=== PATIENT | male | born 1950 | race Caucasian/White ===

== ENCOUNTER 2017-05-30 07:00 | Outpatient (RCR) | payer MEDICARE, OTHER, SELFPAY ==
--- NOTE | 2017-03-07 16:07 | HP.PTEVAL ---
Patient's Visit Information TABITHA ESTEVES is a 66 year old M referred to Physical Therapy by ABHILASH SILVA with a diagnosis of RIGHT TOTAL SHOULDER REPLACEMENT. Date of Evaluation: 03/07/17 Physical Therapist: Donavan Underwood PT, - Visit Plan Frequency: 2x /Week Duration: 3 Months Plan: SEE TSR PROTOCAL. PHASE1,2 AND 3. SLING 4 WEEEKS - Subjective Subjective: This 66 y/o male presents to physical therapy with right total shoulder replacemnt on Feb 29 2016 then d/c Mar 01 at [facility] done Dr Mullen. Patient had pain severe for about one year. Patient had PT in past ,MRI and tried cortizone injections. Thus decided to have surgery.Patient has limitations with ADL'S and self hygine.Okay to remove sling with shower.Patient is sleeping good at night in recliner. Use Ice during the day. Denies parathesia/tingling. SOCIAL: . VOCATION: [employer] - Pain Right Shoulder Pain Intensity (Out of 10): 4 Pain Intensity Range: 10 - Objective POSTURE: mild posture. INSCION : well approximate dressing intact. NEURO: inact ,denies parathesia/tingling. PROM: Right shoulder flexion supine 90 degrees, abd 80 degrees ,ER TO neutral. AROM : wrist /elbow with WFL. MMT: RUE NT ,LEFT 4/5 - Goals Goal 1:: Independant with HEP per protocal Goal Time Frame: 8-12 Weeks Goal 2:: Decrease pain by 75% or greater for function. Goal Time Frame: 8-12 Weeks Goal 3:: Patient increase AROM shoulder flexion ,abd in scpaular plane by 120 degrees or greater and ER as ronnie to improve function. Goal Time Frame: 8-12 Weeks Goal 4:: Patient increase strength to 4-/5 for RTC and deltoid 3+/5 to improve function and ADL'S and housework tasks Goal Time Frame: 8-12 Weeks Goal 5:: Patient be able to perform ADL'S ,self hygine,and housework tasks with min limiations Goal Time Frame: 8-12 Weeks - Rehabilitation Potential Physical Therapy Diagnosis: This patient underwent s/p right TSR Feb 29 2016 with decrease ROM ,strength,pain impairs ADL'S and self hygine ,housework tasks and job demands. Rehabilitation Potential: Good - Anticipated Interventions Patient/Client Instruction: Educate patient on: Condition, Plan of Care For the Purpose of:: To decrease pain, To increase ROM, To improve muscle performance and motor function, To improve ability to perform ADL's, To increase tolerance to activity/condition/position, To improve performance and independence with ADL's, To improve ability of physical actions for home/community/work/leisure, To improve health of tissue, To decrease soft tissue restriction, To increase flexibility/ROM, To assume or resume ADL's, To improve ability to perform tasks related to life management, To improve tolerance to ADL's Therapeutic Exercise to Include: Strength training, Passive ROM, Active ROM, Scapular Strength/Stabilization Comment: RIGHT SHOULDER RTC/DELTOID ELBOW WRIST For the Purpose of:: To decrease pain, To increase ROM, To improve muscle performance and motor function, To improve ability to perform ADL's, To increase tolerance to activity/condition/position, To improve performance and independence with ADL's, To improve ability of physical actions for home/community/work/leisure, To improve health of tissue, To decrease soft tissue restriction, To increase flexibility/ROM, To assume or resume ADL's, To improve ability to perform tasks related to life management Manual Therapy Techniques to Include: Mobilization, Passive ROM Comment: G-H 1-2 For the Purpose of:: To increase ROM, To improve health of tissue, To decrease soft tissue restriction, To increase flexibility/ROM TENS: Yes IF ES: Yes Cryotherapy (ice pack, ice massage): Yes Thermo therapy (hot pack): Yes For the Purpose of:: To decrease pain, To increase ROM, To improve nutrient delivery to tissue, To increase oxygenation perfusion, To improve health of tissue, To decrease soft tissue restriction Thank you for the opportunity to evaluate your patient. For Medicare and Medicare HMO plans, please review the plan of care and approve it. It will need to be FAXED BACK to us at [phone] for Medicare purposes. Please let me know if there are questions or concerns regarding this plan of care. Physician Signature: Date:
--- NOTE | 2017-04-04 07:57 | HP.PTREVAL_ITS ---
ABHILASH SILVA, It has been my pleasure to treat TABITHA ESTEVES over the last 8 visits for RIGHT TOTAL SHOULDER REPLACEMENT. Please see the progress note below for an update on the physical therapy plan of care! Subjective: Stiffnes in shoulder.. Doing more for ADL'S Objective/Function: POSTURE: rounded shoulders head foward. AROM: shoulder flexion 105 degrees with substitution. PROM: abd 145 ,flexion 130 ,ER 55 degrees supine. MMT: IR/ER 4-/5 Plan Plan: CONT POC 2XWEEK FOR 4WEEKS. CONT PER PROTOCAL DOS TSR -02/28/17. S/P TSR 5WEEKS ON 04/04/17 Goals Goal 1:: Independant with HEP per protocal Goal Time Frame: 8-12 Weeks Goal 2:: Decrease pain by 75% or greater for function. Goal Time Frame: 8-12 Weeks Goal 3:: Patient increase AROM shoulder flexion ,abd in scpaular plane by 120 degrees or greater and ER as ronnie to improve function. Goal Time Frame: 8-12 Weeks Goal 4:: Patient increase strength to 4-/5 for RTC and deltoid 3+/5 to improve function and ADL'S and housework tasks Goal Time Frame: 8-12 Weeks Goal 5:: Patient be able to perform ADL'S ,self hygine,and housework tasks with min limiations Goal Time Frame: 8-12 Weeks Anticipated Interventions Patient/Client Instruction: Educate patient on: Condition, Plan of Care For the Purpose of:: To decrease pain, To increase ROM, To improve muscle performance and motor function, To improve ability to perform ADL's, To increase tolerance to activity/condition/position, To improve performance and independence with ADL's, To improve ability of physical actions for home/ community/work/leisure, To improve health of tissue, To decrease soft tissue restriction, To increase flexibility/ROM, To assume or resume ADL's, To improve ability to perform tasks related to life management, To improve tolerance to ADL 's Therapeutic Exercise to Include: Strength training, Passive ROM, Active ROM, Scapular Strength/Stabilization Comment: RIGHT SHOULDER RTC/DELTOID ELBOW WRIST For the Purpose of:: To decrease pain, To increase ROM, To improve muscle performance and motor function, To improve ability to perform ADL's, To increase tolerance to activity/condition/position, To improve performance and independence with ADL's, To improve ability of physical actions for home/ community/work/leisure, To improve health of tissue, To decrease soft tissue restriction, To increase flexibility/ROM, To assume or resume ADL's, To improve ability to perform tasks related to life management Manual Therapy Techniques to Include: Mobilization, Passive ROM Comment: G-H 1-2 For the Purpose of:: To increase ROM, To improve health of tissue, To decrease soft tissue restriction, To increase flexibility/ROM TENS: Yes IF ES: Yes Cryotherapy (ice pack, ice massage): Yes Thermo therapy (hot pack): Yes For the Purpose of:: To decrease pain, To increase ROM, To improve nutrient delivery to tissue, To increase oxygenation perfusion, To improve health of tissue, To decrease soft tissue restriction Please do not hesitate to contact me at [phone] by phone or Fax: if you have questions or concerns regarding this new plan of care! Sincerely, Donavan Underwood PT,
--- NOTE | 2017-05-30 07:36 | HP.PTDCSUM ---
HP - PT D/C Summary It has been my pleasure to treat TABITHA ESTEVES under orders from ABHILASH SILVA, for the diagnosis of RIGHT TOTAL SHOULDER REPLACEMENT for a total of 17 visit(s). Discharge Date: Please see the following information for a summary of their discharge status. - Subjective Subjective: Doing well ..able to perform ADL'S and self hygine. housework tasks - Pain Right Shoulder Pain Intensity (Out of 10): 0 - Overall Improvement % Improvement: 80 - Objective Objective/Function: AROM : shoulder flexion 140, 145 abd,,ER 85 degrees. MMT: RTC 4/5 ,lateral deltoid 3+/5,anterior deltoid 4-/5. POSTURE: WFL - Goals Goal 1:: Independant with HEP per protocal Goal Progress: Goal Met Goal 2:: Decrease pain by 75% or greater for function. Goal Progress: Goal Met Goal 3:: Patient increase AROM shoulder flexion ,abd in scpaular plane by 120 degrees or greater and ER as ronnie to improve function. Goal Progress: Goal Met Goal 4:: Patient increase strength to 4-/5 for RTC and deltoid 3+/5 to improve function and ADL'S and housework tasks Goal 5:: Patient be able to perform ADL'S ,self hygine,and housework tasks with min limiations Goal Progress: Goal Met - Plan Plan: D/C TO HEP - D/C Information If there are questions or concerns regarding this patient's physical therapy, please feel free to call me at [phone]. Thank you for the referral of this patient. Sincerely, Donavan Underwood, PT,
== END 2017-05-30 19:00 | disposition home or self-care (01) ==
LOC: PT 07:00
PROVIDERS: Family Provider Family Medicine; PCP Family Medicine
DX: Z96.611 Presence of right artificial shoulder joint (principal)
CPT/HCPCS: 97110; 97162; G8983; G8984; G8986

== ENCOUNTER → 2018-01-05 07:35 | Outpatient (CLI) | payer MEDICARE, OTHER, SELFPAY ==
[2018-01-05 10:32] LABS: Anion Gap 7 (5-15); BUN 33 mg/dL (7-18); BUN/Creat Ratio 23.4 RATIO (10-20); CRP < 2.90 mg/L (0.0-3.0); Calcium,Total 8.8 mg/dL (8.5-10.1); Chloride 108 mmol/L (98-107); Cholesterol 260 mg/dL (200); Creatinine, Serum 1.41 mg/dL (0.70-1.30); EST Glomerular Filtration Rate 53 mL/min (>60); Est Glom Filt Rate - Afr Amer 64 mL/min (>60); Glucose 87 mg/dL (74-106); High Density Lipoprotein 49 mg/dL; Sodium Level 141 mmol/L (136-145); Triglycerides 108 mg/dL; Very Low Density Lipoprotein 22 mg/dL (5-40)
== END ==
PROVIDERS: Family Provider Family Medicine; PCP Family Medicine; Referring Provider Family Medicine; Visit Provider Family Medicine
DX: I10 Essential (primary) hypertension (principal); E78.5 Hyperlipidemia, unspecified
CPT/HCPCS: 80048; 80061; 86140

== ENCOUNTER 2018-03-01 20:53 | Emergency (ER) | payer MEDICARE, OTHER, SELFPAY ==
[2018-03-01 20:54] VITALS: BP 102/79; PULSE 72; RESP 17; TEMP 36.2; O2SAT 94; BMI 33.2
--- NOTE | 2018-03-01 21:20 | ED.DCSUM_ITS ---
- ER Visit Summary Date of Service: 03/01/18 Chief Complaint: [] Left thenar region laceration 1.5 cm History of Present Illness: The patient is a 67 M [] was working with basically a stove door that was under some type of pressure this spring snapped back and struck him left hand he suffered a laceration to the left thenar region he has no loss of function no numbness weakness or paresthesias he presents for suture evaluation and laceration management he has no other complaints Physical Examination: [] 102/72 70 His general physical exam is entirely unremarkable Is a 1.5 cm curvilinear laceration at the thenar region of left thumb left thumb thumb function is fully intact finger function and hand function normal wrist is nontender he has almost no pain no bleeding, I explained to him about the possibly foreign body he explained that not possible, he did not wish to have an x-ray as he does not believe that he has a fracture Discussed repair he agreed to glue the laceration was sterilely prepped irrigated prepped again and then closed with glue with no difficulty was instructed on wound management and he will follow with his family doctors and outpatient providers Test Results: [] Emergency Department Course and Treatment: [] Please note the patient declined tetanus update Treatment Plan: [] Disposition: [] Home stable Impression: [] 1.5 cm left hand laceration closed with glue This note was generated with [employer] dictation software. It may contain incorrect words, spelling, and punctuation that were not noted in review of the chart prior to signing ED Disposition - Plan for ED Patient: Chief Complaint: Laceration Referrals: Rosie Rodriguez MD [Primary Care Provider] -
--- NOTE | 2018-03-01 21:20 | ED.DEP ---
ED Disposition - Plan for ED Patient: Chief Complaint: Laceration Instructions: ED Laceration Hand, ED Laceration Facial Skin Glue Referrals: Rosie Rodriguez MD [Primary Care Provider] -
== END 2018-03-01 21:51 | disposition home or self-care (01) ==
LOC: ED 21:20
PROVIDERS: Emergency Provider Emergency Medicine; Family Provider Family Medicine; PCP Family Medicine
DX: S61.412A Laceration without foreign body of left hand, initial encounter (principal); W22.8XXA Striking against or struck by other objects, initial encounter; Y93.9 Activity, unspecified; Y92.9 Unspecified place or not applicable; Y99.9 Unspecified external cause status; Z79.899 Other long term (current) drug therapy
CPT/HCPCS: 12001; 99282

== ENCOUNTER → 2018-06-21 10:06 | Outpatient (CLI) | payer MEDICARE, OTHER, SELFPAY ==
--- NOTE | 2018-06-21 10:11 | RAD_ITS ---
STUDY: X-RAY CHEST REASON FOR EXAM: Male, 67 years old. Cough TECHNIQUE: PA and lateral views of the chest. COMPARISON: None. FINDINGS: Linear atelectasis versus scar formation at the left mid lung base. No confluent airspace opacity. There is no demonstrated pleural abnormality. Normal size heart. Normal mediastinum and sejal. Normal visualized pulmonary arteries. Normal visualized aortic arch and descending thoracic aorta. Normal visualized thoracic spine. Normal visualized ribs, clavicles, and shoulders. Right humeral prosthesis. There is no demonstrated abnormality of the visualized soft tissue structures of the upper abdomen. RAD/Chest PA and Lateral IMPRESSION: No evidence of acute cardiopulmonary disease. Electronically Signed: Jarrod Deluna MD at 4:58 EDT Tel , Service support ,
== END ==
PROVIDERS: Family Provider Family Medicine; PCP Family Medicine; Referring Provider Family Medicine; Visit Provider Family Medicine
DX: R05 Cough (principal)
CPT/HCPCS: 71046

== ENCOUNTER 2018-06-28 13:04 | Observation (INO) | payer MEDICARE, OTHER, SELFPAY ==
[2018-06-28] VITALS (10 sets, daily range): BP systolic 134–174; BP diastolic 83–99; PULSE 59–69; RESP 16–18; TEMP 36.3–36.6; O2SAT 96–99; BMI 32.5; BMI 32.9
[2018-06-28 13:21] LABS: Bedside Glucose 106 mg/dL (70-110)
--- NOTE | 2018-06-28 13:28 | RAD_ITS ---
STUDY: X-RAY CHEST REASON FOR EXAM: Male, 67 years old. Weakness and dizziness. Lethargy. TECHNIQUE: Single AP portable view of the chest. COMPARISON: Comparison is made with prior study June 21, 2018. FINDINGS: EKG electrodes are seen. The lungs are clear and expanded. There is no demonstrated pleural abnormality. There is borderline cardiomegaly. Normal mediastinum and sejal. Normal visualized pulmonary arteries. There is atherosclerotic tortuosity of the aortic arch and descending thoracic aorta. There are degenerative changes of the visualized thoracic spine. Status post right shoulder replacement. There is no demonstrated abnormality of the visualized soft tissue structures of the upper abdomen. RAD/Chest 1 View IMPRESSION: No acute abnormality is seen. Electronically Signed: Binh Galvan, at 14:25 EDT , Service support ,
--- NOTE | 2018-06-28 13:28 | EKG12_ITS ---
Test Reason : COUGH Blood Pressure : / mmHG Vent. Rate : 057 BPM Atrial Rate : 057 BPM P-R Int : 230 ms QRS Dur : 078 ms QT Int : 424 ms P-R-T Axes : -26 012 022 degrees QTc Int : 412 ms Sinus bradycardia with 1st degree A-V block Otherwise normal ECG Confirmed by REINA MENDOZA, RAMYA ([id number]), rewrite editor ANGY APONTE ([id number]) on 07/02/2018 10:46:28 AM Referred By: Pramod Mayes Confirmed By:RAMYA HUANG MD
--- NOTE | 2018-06-28 13:28 | CT_ITS ---
STUDY: CT BRAIN WITHOUT CONTRAST REASON FOR EXAM: Male, 67 years old. Slurred speech. Confusion. RADIATION DOSAGE (If Supplied By Facility): CTDIvol = ( 60.81 ) mGy, DLP = ( 1067.08 ) mGycm TECHNIQUE: Transaxial CT imaging of the brain was performed without administration of intravenous contrast material. Individualized dose optimization techniques were used for this CT. COMPARISON: No relevant priors. FINDINGS: Normal soft tissue structures. Normal calvarium. There is asymmetry of the ventricles consistent with an anatomic variant. Normal white matter tracts of the cerebral hemispheres. Normal basal ganglia and thalami. Normal brainstem. Normal cerebellum. There is no intracranial hemorrhage. There are no findings of an acute ischemic infarction. Atherosclerotic calcification of the cavernous portions of the internal carotid arteries as well as the vertebral arteries bilaterally. Mucosal thickening of the maxillary sinuses bilaterally slightly worse on the left side. Partial opacification of the ethmoid sinuses. Mucosal thickening of the sphenoid sinus. CT/Brain/Head without Contrast IMPRESSION: Chronic involutional changes of the brain. Sinusitis. Electronically Signed: Binh Galvan, at 14:09 EDT , Service support ,
[2018-06-28 13:58] LABS: Absolute Lymphocyte Count 1.28 X10^3/ul (0.83-4.51); Absolute Neutrophil Count 2.8 X10^3/uL (2.0-7.7); Basophil# 0.01 X10^3/uL; Basophil% 0.2 % (0-1); Eosinophil# 0.19 X10^3/uL; Eosinophils% 3.9 % (0-5); Hematocrit 36.2 % (40-54); Hemoglobin 12.5 g/dl (13.0-16.5); Lymphocyte # 1.28 X10^3/ul (4.0); Lymphocyte % 26.6 % (19-41); Mean Corp Hgb Conc 34.5 g/gl (32-36); Mean Corpuscular Hgb 30.3 pg (27.0-32.0); Mean Corpuscular Volume 87.7 fL (80-94); Mean Platelet Vol. 9.5 fl (6.2-12.0); Monocyte# 0.53 X10^3/uL; Neutrophil % 58.1 % (47-70); Platelet Count 228 K/mm3 (150-450); RBC Distribution Width CV 12.4 % (11.6-14.6); RBC Distribution Width SD 40.2 fl (35.1-43.9); Red Blood Count 4.13 M/mm3 (4.6-6.2); White Blood Count 4.8 K/mm3 (4.4-11.0)
[2018-06-28 14:00] LABS: POSITIVE COUNT NO; POSITIVE DIFFERENTIAL NO; POSITIVE MORPHOLOGY NO; Prothrombin Time (Protime)PT. 13.1 SECONDS (11.7-14.9)
[2018-06-28 14:01] LABS: Partial Thromboplast Time 26.9 Seconds (24.1-36.2)
[2018-06-28 14:08] LABS: Anion Gap 6 (5-15); BUN 34 mg/dL (7-18); Calcium,Total 8.5 mg/dL (8.5-10.1); Chloride 105 mmol/L (98-107); Creatinine, Serum 1.36 mg/dL (0.70-1.30); EST Glomerular Filtration Rate 55 mL/min (>60); Est Glom Filt Rate - Afr Amer 67 mL/min (>60); Glucose 103 mg/dL (74-106); Potassium 3.8 mmol/L (3.5-5.1); Sodium Level 138 mmol/L (136-145)
--- NOTE | 2018-06-28 14:44 | NURSING ---
DR HORACIO VELOZ
--- NOTE | 2018-06-28 14:45 | NURSING ---
DR LEONARD IN ROOM
--- NOTE | 2018-06-28 14:47 | ED.DCSUM_ITS ---
- ER Visit Summary Date of Service: 06/28/18 Chief Complaint: Disoriented, slurred speech History of Present Illness: The patient is a 67 M who comes in feeling disoriented. His thought his speech was slurred today his speech is a little bit slower than normal. He states he felt often tired when he woke up today. His speech was slow to respond. He felt dizzy but not lightheaded or vertiginous. He denies chest pain or headache. The states that his speech is now a little bit better but is still a little bit slow. He has no history of strokes in the past. He does have a history of hypertension. They thought that he may have taken a double dose of his antihypertensives but they are not sure. Physical Examination: Vital signs reviewed. HEENT exam unremarkable. Heart is regular rate and rhythm without murmurs. Lungs are clear to auscultation. Abdomen is soft and nontender. Extremities reveal no edema. Skin exam normal. Neurologic exam shows that his speech is slower but deliberate with no slurring. He has no facial droop. NIH is 0 Test Results: Laboratory studies show a hemoglobin of 12.5. Creatinine 1.36. Troponin normal. EKG normal. CAT scan of the head reveals chronic changes with sinusitis. Chest x-ray unremarkable Emergency Department Course and Treatment: The patient had no return of symptoms. When I reevaluated him his speech is better. My concern is that he has a TIA. He does have a slightly high ABCD 2 score based on his age and hypertension and symptoms. I feel he should be admitted to the hospital for further evaluation. I spoke with the hospitalist for admission Treatment Plan: [] Disposition: Admit Impression: TIA This note was generated with [employer] dictation software. It may contain incorrect words, spelling, and punctuation that were not noted in review of the chart prior to signing ED Disposition - Plan for ED Patient: Referrals: Rosie Rodriguez MD [Primary Care Provider] -
--- NOTE | 2018-06-28 15:00 | PCM.HP.STD ---
Problem List (1) Dysarthria Status: Acute History of Present Illness Date of Admission: 06/28/18 Chief Complaint: slurred speech The patient is a 67 year old M who was recently come down from 2-week illness. Was doing okay but was just feeling of his mouth is dry and was noted to have slurred speech. Patient is also noted to be deliberate in his speech as well. Otherwise patient feels well. Family is concerned brought patient to the emergency room. Patient underwent a workup in the emergency room that was unremarkable. The hospitalist service was asked to bring patient for further evaluation and rule out a stroke. Patient is never had a stroke before. [] Past Medical History Medical History: Medical History (Last Updated 06/28/18 @ 15:02 by Zohaib Billingsley DO) Depression F32.9 HTN (hypertension) I10 Allergies No Known Allergies Allergy (Verified 06/28/18 13:18) Home Medications: Ambulatory Orders Medication Instructions Recorded Hydrochlorothiazide [Hctz] 25 mg PO QHS 03/01/18 Lamotrigine [Lamictal] 200 mg PO DAILY 03/01/18 Losartan Potassium [Cozaar] 100 mg PO DAILY 03/01/18 Metoprolol Succinate [Toprol Xl] 100 mg PO DAILY 03/01/18 Quetiapine Fumarate [Seroquel] 100 mg PO QHS 03/01/18 Tamsulosin HCl [Flomax] 0.4 mg PO DAILY 03/01/18 Zolpidem Tartrate 10 mg PO DAILY 03/01/18 Psychiatric History: Depression Lives: Spouse/ Significant Other Smoking Status: Never smoker Tobacco Use: Non-smoker Alcohol: Rare Drugs: None - *Family History Sibling Family History: Family History (Last Updated 06/28/18 @ 15:02 by Zohaib Billingsley DO) Brother CVA (cerebral vascular accident) Review of Systems Constitutional: Denies: Anorexia, Chills, Fever, Night Sweats Eyes: Denies: Blurred vision, Double vision HEENT: Reports: Sore Throat, - - dry mouth. Denies: Head Aches, Sinus Congestion, Sinus Drainage Cardiovascular: Denies: Chest Pain, Palpitations Respiratory: Denies: Cough, Shortness of breath at rest, Sputum production Gastrointestinal: Denies: Abdominal Pain, Nausea, Vomiting Genitourinary: Denies: Dysuria Musculoskeletal: Denies: Joint Pain, Joint Tenderness Skin: Denies: Rash, Wounds Neurological: Denies: Numbness, Tingling, Focal weakness Psychiatric: Reports: Depression. Denies: Anxiety Endocrine: Denies: Change in Body Habitus, Heat/ Cold Intolerance Hematologic/ Lymphatic: Denies: Easy Bruising, Easy Bleeding, Hx of blood clot Comment: A 10 point review of systems were negative except as mentioned in the history of present illness and the other review of systems. VTE Information - Inpt Only VTE Present on Admission: No VTE Mechan Device Prophylaxis: None VTE Pharm Prophylaxis ordered?: Yes Patient Problems: Active and Suspected Problems Dysarthria (Acute) - Physical Exam General: Alert, Cooperative, No apparent distress, Well developed, Well nourished HEENT: Atraumatic, PERRLA, EOMI, Normocephalic Oral: No Gingival or Mucosal Lesions/ Ulcerations, Dry Mucosa Neck: No Nodes, Thyroid Normal Size and Texture Lungs: Clear to auscultation, Normal air movement Cardiovascular: Regular rate, Regular Rhythm, Normal S1, Normal S2, No murmurs Abdomen: Bowel Sounds Present, Soft, Non Tender, Non-Distended, No Hepato-splenomegaly Extremities: No edema, No Calf Tenderness Skin: No rashes, No breakdown Musculoskeletal: No Tenderness to Palpation of Joints or Extremities, No Muscle Wasting Neurological: Cranial nerves II-XII grossly intact, Motor Exam 5/5 strength throughout Psych/Mental Status: Normal Affect, Appropriate Vital Signs Temp Pulse Resp BP Pulse Ox 36.6 C 63 16 174/97 H 99 06/28/18 13:08 06/28/18 14:18 06/28/18 14:18 06/28/18 14:18 06/28/18 14:18 Oxygen Delivery Method Room Air Weight: 97.069 kg Body Mass Index (BMI) 32.5 Finger Stick Blood Glucose 106 Laboratory Tests Past 24 Hrs 06/28/18 06/28/18 06/28/18 13:13 13:13 13:13 WBC 4.8 RBC 4.13 L Hgb 12.5 L Hct 36.2 L MCV 87.7 MCH 30.3 MCHC 34.5 RDW 12.4 RDW Differential 40.2 Plt Count 228 MPV 9.5 Immature Gran % (Auto) 0.200 Neut % (Auto) 58.1 Lymph % (Auto) 26.6 [place] % (Auto) 11.0 H Eos % (Auto) 3.9 Baso % (Auto) 0.2 Absolute Neuts (auto) 2.8 Absolute Lymphs (auto) 1.28 Total Counted Not Reportable PT 13.1 INR 1.0 APTT 26.9 Sodium 138 Potassium 3.8 Chloride 105 Carbon Dioxide 27.0 Anion Gap 6 BUN 34 H Creatinine 1.36 H Estim Creat Clear Calc 49.60 Est GFR (MDRD) Af Amer 67 Est GFR (MDRD) Non-Af 55 L BUN/Creatinine Ratio 25.0 H Glucose 103 Calcium 8.5 Troponin I < 0.015 POC Glucose 06/28/18 13:11 POC Glucose 106 Clinical Impression(s) from Imaging Studies Brain CT 06/28/18 13:28 IMPRESSION: Chronic involutional changes of the brain. Sinusitis. Electronically Signed: Binh Galvan, at 14:09 EDT , Service support , Chest X-Ray 06/28/18 13:28 IMPRESSION: No acute abnormality is seen. Electronically Signed: Binh Galvan, at 14:25 EDT , Service support , EKG was normal sinus rhythm with no acute changes. Assessment/Plan All Active Problems Dysarthria (Acute) 1. Dysarthria Etiology is unclear but concern for stroke given family history and his history of hypertension Patient is on psychiatric medications but he states he takes those at night and not during the day Patient will undergo stroke workup, with an MRI of the brain, MRA of the head and neck, echocardiogram. PT and OT evaluate and treat. If evidence of stroke on MRI, recommend consultation to neurology. Holding off because I do not see any clear evidence of a stroke at this point in time clinically. Patient does have a dry mouth which patient does endorse I do not feel that is necessary that culprit of his symptoms but certainly not helping matters. Will hold his HCTZ. Given some of the noted delivered speech by the emergency room physician, would hold off on his zolpidem 2. Hypertension Accelerated at this time Continue with his losartan, metoprolol Hold HCTZ given his a clinically dry mouth 3. Depression Continue with his Seroquel as well as Lamictal Patient denies history of bipolar disorder 4. DVT prophylaxis with Lovenox Case discussed with the patient's at bedside. Code Visit OBSV E&M: 33737 Initial observation care L3
--- NOTE | 2018-06-28 15:06 | HP.PCM_ITS ---
Problem List (1) Dysarthria Status: Acute History of Present Illness Date of Admission: 06/28/18 Chief Complaint: slurred speech The patient is a 67 year old M who was recently come down from 2-week illness. Was doing okay but was just feeling of his mouth is dry and was noted to have slurred speech. Patient is also noted to be deliberate in his speech as well. Otherwise patient feels well. Family is concerned brought patient to the emergency room. Patient underwent a workup in the emergency room that was unremarkable. The hospitalist service was asked to bring patient for further evaluation and rule out a stroke. Patient is never had a stroke before. [] Past Medical History Medical History: Medical History (Last Updated 06/28/18 @ 15:02 by Zohaib Billingsley DO) Depression F32.9 HTN (hypertension) I10 Allergies No Known Allergies Allergy (Verified 06/28/18 13:18) Home Medications: Ambulatory Orders Medication Instructions Recorded Hydrochlorothiazide [Hctz] 25 mg PO QHS 03/01/18 Lamotrigine [Lamictal] 200 mg PO DAILY 03/01/18 Losartan Potassium [Cozaar] 100 mg PO DAILY 03/01/18 Metoprolol Succinate [Toprol Xl] 100 mg PO DAILY 03/01/18 Quetiapine Fumarate [Seroquel] 100 mg PO QHS 03/01/18 Tamsulosin HCl [Flomax] 0.4 mg PO DAILY 03/01/18 Zolpidem Tartrate 10 mg PO DAILY 03/01/18 Psychiatric History: Depression Lives: Spouse/ Significant Other Smoking Status: Never smoker Tobacco Use: Non-smoker Alcohol: Rare Drugs: None - *Family History Sibling Family History: Family History (Last Updated 06/28/18 @ 15:02 by Zohaib Billingsley DO) Brother CVA (cerebral vascular accident) Review of Systems Constitutional: Denies: Anorexia, Chills, Fever, Night Sweats Eyes: Denies: Blurred vision, Double vision HEENT: Reports: Sore Throat, - - dry mouth. Denies: Head Aches, Sinus Congestion, Sinus Drainage Cardiovascular: Denies: Chest Pain, Palpitations Respiratory: Denies: Cough, Shortness of breath at rest, Sputum production Gastrointestinal: Denies: Abdominal Pain, Nausea, Vomiting Genitourinary: Denies: Dysuria Musculoskeletal: Denies: Joint Pain, Joint Tenderness Skin: Denies: Rash, Wounds Neurological: Denies: Numbness, Tingling, Focal weakness Psychiatric: Reports: Depression. Denies: Anxiety Endocrine: Denies: Change in Body Habitus, Heat/ Cold Intolerance Hematologic/ Lymphatic: Denies: Easy Bruising, Easy Bleeding, Hx of blood clot Comment: A 10 point review of systems were negative except as mentioned in the history of present illness and the other review of systems. VTE Information - Inpt Only VTE Present on Admission: No VTE Mechan Device Prophylaxis: None VTE Pharm Prophylaxis ordered?: Yes Patient Problems: Active and Suspected Problems Dysarthria (Acute) - Physical Exam General: Alert, Cooperative, No apparent distress, Well developed, Well nourished HEENT: Atraumatic, PERRLA, EOMI, Normocephalic Oral: No Gingival or Mucosal Lesions/ Ulcerations, Dry Mucosa Neck: No Nodes, Thyroid Normal Size and Texture Lungs: Clear to auscultation, Normal air movement Cardiovascular: Regular rate, Regular Rhythm, Normal S1, Normal S2, No murmurs Abdomen: Bowel Sounds Present, Soft, Non Tender, Non-Distended, No Hepato- splenomegaly Extremities: No edema, No Calf Tenderness Skin: No rashes, No breakdown Musculoskeletal: No Tenderness to Palpation of Joints or Extremities, No Muscle Wasting Neurological: Cranial nerves II-XII grossly intact, Motor Exam 5/5 strength throughout Psych/Mental Status: Normal Affect, Appropriate Vital Signs Temp Pulse Resp BP Pulse Ox 36.6 C 63 16 174/97 H 99 06/28/18 13:08 06/28/18 14:18 06/28/18 14:18 06/28/18 14:18 06/28/18 14:18 Oxygen Delivery Method Room Air Weight: 97.069 kg Body Mass Index (BMI) 32.5 Finger Stick Blood Glucose 106 Laboratory Tests Past 24 Hrs 06/28/18 06/28/18 06/28/18 13:13 13:13 13:13 WBC 4.8 RBC 4.13 L Hgb 12.5 L Hct 36.2 L MCV 87.7 MCH 30.3 MCHC 34.5 RDW 12.4 RDW Differential 40.2 Plt Count 228 MPV 9.5 Immature Gran % (Auto) 0.200 Neut % (Auto) 58.1 Lymph % (Auto) 26.6 [place] % (Auto) 11.0 H Eos % (Auto) 3.9 Baso % (Auto) 0.2 Absolute Neuts (auto) 2.8 Absolute Lymphs (auto) 1.28 Total Counted Not Reportable PT 13.1 INR 1.0 APTT 26.9 Sodium 138 Potassium 3.8 Chloride 105 Carbon Dioxide 27.0 Anion Gap 6 BUN 34 H Creatinine 1.36 H Estim Creat Clear Calc 49.60 Est GFR (MDRD) Af Amer 67 Est GFR (MDRD) Non-Af 55 L BUN/Creatinine Ratio 25.0 H Glucose 103 Calcium 8.5 Troponin I < 0.015 POC Glucose 06/28/18 13:11 POC Glucose 106 Clinical Impression(s) from Imaging Studies Brain CT 06/28/18 13:28 IMPRESSION: Chronic involutional changes of the brain. Sinusitis. Electronically Signed: Binh Galvan, at 14:09 EDT , Service support , Chest X-Ray 06/28/18 13:28 IMPRESSION: No acute abnormality is seen. Electronically Signed: Binh Galvan, at 14:25 EDT , Service support , EKG was normal sinus rhythm with no acute changes. Assessment/Plan All Active Problems Dysarthria (Acute) 1. Dysarthria * Etiology is unclear but concern for stroke given family history and his history of hypertension * Patient is on psychiatric medications but he states he takes those at night and not during the day * Patient will undergo stroke workup, with an MRI of the brain, MRA of the head and neck, echocardiogram. PT and OT evaluate and treat. * If evidence of stroke on MRI, recommend consultation to neurology. Holding off because I do not see any clear evidence of a stroke at this point in time clinically. * Patient does have a dry mouth which patient does endorse I do not feel that is necessary that culprit of his symptoms but certainly not helping matters. Will hold his HCTZ. Given some of the noted delivered speech by the emergency room physician, would hold off on his zolpidem 2. Hypertension * Accelerated at this time * Continue with his losartan, metoprolol * Hold HCTZ given his a clinically dry mouth 3. Depression * Continue with his Seroquel as well as Lamictal * Patient denies history of bipolar disorder 4. DVT prophylaxis with Lovenox Case discussed with the patient's at bedside. Code Visit OBSV E&M: 66424 Initial observation care L3
--- NOTE | 2018-06-28 15:45 | ECHOCS_ITS ---
Reason For Study: TIA/CVA Procedure This was a 2D Doppler, Color Flow transthoracic echocardiogram. Exam performed portable in patient room. Left Ventricle Normal LV size. Mild concentric left ventricular hypertrophy. Left ventricular systolic function is normal. The estimated ejection fraction is 65 %. Stage 1 diastolic dysfunction. No regional wall motion abnormalities noted. Right Ventricle Normal RV size. Normal systolic function. Atria Normal left atrium. Normal right atrium. Bubble contrast study negative for right to left interatrial shunt. Mitral Valve Normal mitral valve. Tricuspid Valve Normal tricuspid valve. Aortic Valve Trisinus/trileaflet aortic valve. Mild focal aortic valve calcification. Peak aortic valve gradient 20 mmHg. Mean aortic valve gradient 10 mmHg. Calculated aortic valve area (continuity equation) is 1.4 cm2. Pulmonic Valve Normal pulmonic valve. Great Vessels Normal aortic root. The pulmonary artery is normal size. Normal inferior vena cava. Pericardium/Pleural No pericardial effusion. Medication Diluted definity 3ml given slow IV push to enhance endocardial definition. Performed a rapid injection of agitated mix of 9 cc saline and 1cc air to assess for atrial septal defect. MMode/2D Measurements & Calculations LVIDd: 4.5 cm IVSd: 1.2 cm LVOT diam: 2.0 cm LVIDs: 3.1 cm LVPWd: 1.3 cm RVDd: 2.4 cm FS: 31.8 % LVOT area: 3.2 cm2 Ao root diam: 3.9 cm LAV(MOD-sp2): 43.3 ml Aortic Valve Planimetry: 1.6 cm2 ACS: 1.5 cm LA dimension: 4.0 cm Time Measurements MV dec time: 0.25 sec Doppler Measurements & Calculations MV E max jesse: 73.5 cm/sec Lat Peak E' Jesse: 12.2 cm/sec Med Peak E' Jesse: 8.5 cm/sec MV A max jesse: 95.6 cm/sec E/E' lat: 6.0 E/E' med: 8.6 MV E/A: 0.77 MV V2 max: 95.1 cm/sec MV P1/2t max jesse: 80.9 cm/sec Ao V2 max: 224.5 cm/sec MV max P.6 mmHg MV P1/2t: 100.6 msec Ao max P.2 mmHg MV V2 mean: 52.6 cm/sec Ao V2 mean: 155.4 cm/sec MV mean P.3 mmHg MV dec slope: 235.5 cm/sec2 Ao mean P.8 mmHg MV V2 VTI: 28.7 cm MVA(P1/2t): 2.2 cm2 Ao V2 VTI: 45.2 cm MVA(VTI): 2.6 cm2 ILEANA(I,D): 1.6 cm2 ILEANA(V,D): 1.4 cm2 LV V1 max: 94.3 cm/sec SV(LVOT): 73.2 ml PA V2 max: 67.2 cm/sec LV V1 max P.6 mmHg LV V1 mean P.2 mmHg LV V1 mean: 68.4 cm/sec LV V1 VTI: 22.6 cm Interpretation Summary Normal LV size. Left ventricular systolic function is normal. The estimated ejection fraction is 65 %. Stage 1 diastolic dysfunction. Calculated aortic valve area (continuity equation) is 1.4 cm2. Contrast injection was performed. Ordering Physician: Zohaib Billingsley Referring Physician: Rosie Rodriguez M.D. Performed By: Db Bledsoe RCS
--- NOTE | 2018-06-28 15:45 | MRI_ITS ---
STUDY: MRA NECK WITH AND WITHOUT CONTRAST REASON FOR EXAM: Male, 67 years old. Weakness and fatigue TECHNIQUE: 3-D kges-km-gwxjob (TOF) imaging was performed in an 1.5 T MRI scanner. 20 IV Dotarem was administered for the contrast enhanced images. COMPARISON: None. FINDINGS: RIGHT CAROTID ARTERIES: Normal right common carotid artery (CCA). Normal right common carotid bulb. Normal origin of the right internal carotid (ICA) artery without a hemodynamically significant stenosis. Normal visualized cervical portion of the right internal carotid artery. Normal origin of the right external carotid artery (ECA). LEFT CAROTID ARTERIES: Normal left common carotid artery (CCA). Normal left common carotid bulb. Normal origin of the left internal carotid (ICA) artery without a hemodynamically significant stenosis. Normal visualized cervical portion of the left internal carotid artery. Normal origin of the left external carotid artery (ECA). VERTEBRAL ARTERIES: Normal antegrade flow within the bilateral vertebral artery without a hemodynamically significant stenosis. MRI/MRA Neck WITH and W/O Contrast IMPRESSION: Normal bilateral cervical carotid and vertebral arteries. Electronically Signed: Rudy Murphy MD at 22:03 EDT Tel , Service support ,
--- NOTE | 2018-06-28 15:45 | MRI_ITS ---
STUDY: MRA OF THE HEAD WITHOUT CONTRAST REASON FOR EXAM: Male, 67 years old. Weakness and fatigue TECHNIQUE: 3-D ykvp-or-tjgvqd (TOF) imaging was performed with MIPs. The study was performed unenhanced. COMPARISON: MRI same day FINDINGS: Normal bilateral petrous carotid arteries. Normal right cavernous carotid artery with a normal supraclinoid bifurcation. Normal left cavernous carotid artery with a normal supraclinoid bifurcation. Normal right A1 segments of the anterior cerebral artery. Normal left A1 segments of the anterior cerebral artery. Normal intact anterior communicating artery (ACOM). Normal bilateral A2 segments of the anterior cerebral arteries. Normal right M1 and M2 segments of the middle cerebral arteries, with a normal M1 bifurcation. Normal left M1 and M2 segments of the middle cerebral arteries, with a normal M1 bifurcation. Normal right posterior communicating artery (PCOM). Normal left posterior communicating artery (PCOM). Normal bilateral vertebral arteries. Normal basilar artery with a normal basilar bifurcation. The visualized bilateral superior cerebellar (SCA) arteries are normal. Normal bilateral P1, P2 and visualized P3 segments of the posterior cerebral arteries. There is no demonstrated aneurysm of the [place]. There is no major vessel occlusion or hemodynamically significant stenosis. There is no demonstrated abnormality of the visualized brain. MRI/MRA Head ONLY without Contrast IMPRESSION: Normal MRA of the head Electronically Signed: Rudy Murphy MD at 22:00 EDT Tel , Service support ,
--- NOTE | 2018-06-28 15:45 | MRI_ITS ---
STUDY: MRI BRAIN WITH AND WITHOUT CONTRAST REASON FOR EXAM: Male, 67 years old. Weakness and fatigue TECHNIQUE: Standardized multiplanar fat and water weighted pulse sequences were obtained. 20 IV Dotarem was administered for the contrast portion of the examination. COMPARISON: 06/28/2018 FINDINGS: There is asymmetry of the ventricles consistent with an anatomic variant. There are a limited number of small white matter hyperintensities, distributed throughout the deep white matter tracts of the cerebral hemispheres, consistent with mild chronic white matter ischemic changes. Normal bilateral basal ganglia. Normal thalami. There is no extra-axial fluid accumulation. Normal flow voids within the major intracranial circulation suggesting patency by spin echo criteria. Normal venous enhancement. There is no enhancing intra-axial or extra-axial abnormality. Normal sella turcica, pituitary gland, infundibular stalk, optic chiasm and hypothalamus. Normal tectal plate and pineal gland. Normal midbrain, jessica and medulla. Normal cerebellum. Normal basal cisterns. Normal bilateral temporal bones. Normal bilateral internal auditory canals. No demonstrated orbital abnormality, within the constraints of a routine brain study. Bilateral maxillary and left ethmoid sinus disease. Normal calvarium and skull base. Normal visualized soft tissue structures. Normal visualized upper cervical spine. MRI/Brain W/WO Contrast IMPRESSION: No evidence of acute infarct or hemorrhage. Mild microangiopathic white matter disease. Electronically Signed: Rudy Murphy MD at 21:25 EDT Tel , Service support ,
[2018-06-28] MEDS: Aspirin 325 MG Tablet PO (17:16)
[2018-06-28] MEDS: 0.9% Normal Saline 1,000 ML 150 ML IV (17:26)
[2018-06-28] MEDS: Tamsulosin HCl 0.4 MG Capsule PO (21:16)
[2018-06-28] MEDS: lamoTRIgine 100 MG Tablet 200 MG PO (21:16)
[2018-06-28] MEDS: QUEtiapine 100 MG Tablet PO (21:16)
[2018-06-28] MEDS: Metoprolol(XL)Succ 100 MG Tablet PO (21:17)
[2018-06-29] VITALS (8 sets, daily range): BP systolic 107–143; BP diastolic 74–80; PULSE 61–72; RESP 16–18; TEMP 36.6–37.1; O2SAT 93–96; BMI 32.9
[2018-06-29 06:39] LABS: Cholesterol 192 mg/dL (200); High Density Lipoprotein 41 mg/dL; Triglycerides 154 mg/dL; Very Low Density Lipoprotein 31 mg/dL (5-40)
[2018-06-29] MEDS: Aspirin 81 MG TAB.CHEW PO (08:02)
[2018-06-29 08:16] LABS: Hematocrit 37.1 % (40-54); Hemoglobin 12.8 g/dl (13.0-16.5); Mean Corp Hgb Conc 34.5 g/gl (32-36); Mean Corpuscular Hgb 30.2 pg (27.0-32.0); Mean Corpuscular Volume 87.5 fL (80-94); Mean Platelet Vol. 9.5 fl (6.2-12.0); Platelet Count 250 K/mm3 (150-450); RBC Distribution Width CV 12.5 % (11.6-14.6); RBC Distribution Width SD 40.1 fl (35.1-43.9); Red Blood Count 4.24 M/mm3 (4.6-6.2); White Blood Count 5.3 K/mm3 (4.4-11.0)
[2018-06-29 08:24] LABS: Scan Indicated on CBC? Y/N NO
[2018-06-29 08:27] LABS: Anion Gap 5 (5-15); BUN 24 mg/dL (7-18); BUN/Creat Ratio 18.5 RATIO (10-20); Calcium,Total 8.7 mg/dL (8.5-10.1); Chloride 110 mmol/L (98-107); EST Glomerular Filtration Rate 58 mL/min (>60); Est Glom Filt Rate - Afr Amer 70 mL/min (>60); Estimated Creatinine Clearance 51.88 ml/min; Glucose 86 mg/dL (74-106); Potassium 3.9 mmol/L (3.5-5.1); Sodium Level 141 mmol/L (136-145)
[2018-06-29] MEDS: Losartan Potassium 100 MG Tablet PO (10:36)
[2018-06-29] MEDS: Enoxaparin 40 MG/0.4 ML Syringe SC (10:37)
[2018-06-29 12:01] LABS: Hemoglobin A1c 5.7 % (4.2-6.3)
--- NOTE | 2018-06-29 13:20 | DCINST_ITS ---
- Discharge Diagnoses Current Active Problems: Current Active and Chronic Problems (Last Updated 06/28/18 @ 15:02 by Zohaib Billingsley DO) Dysarthria (Acute) Reason(s) for Visit for Discharge Instructions: Slurred speech You will use the following diet at home:: Cardiac Your food should be the consistency of: Regular Your liquids should be the consistency of: Regular/Thin Discharge Activity: Return to Normal Activity Additional Instructions: Do not take any over the counter unless cleared by your physician. Continue to keep yourself hydrated. Follow-up with Dr. Tipton within 1-2 weeks. Maintain a low fat, low salt diet. Continue on daily baby aspirin. Continue to remain active. Allergies/Adverse Reactions: Allergies No Known Allergies Allergy (Verified 06/28/18 13:18) Medications to take at Discharge Hydrochlorothiazide [Hctz] 25 mg PO DAILY 03/01/18 Lamotrigine [Lamictal] 200 mg PO QHS 03/01/18 Losartan Potassium [Cozaar] 100 mg PO DAILY 03/01/18 Metoprolol Succinate [Toprol Xl] 100 mg PO QHS 03/01/18 Quetiapine Fumarate [Seroquel] 100 mg PO QHS 03/01/18 Tamsulosin HCl [Flomax] 0.4 mg PO QHS 03/01/18 Aspirin [Aspirin, Baby] 81 mg PO DAILY@0800 #30 tab.chew 06/29/18 The following prescriptions were given: Aspirin [Aspirin, Baby] 81 mg PO DAILY@0800 #30 tab.chew Primary Care Physician: Rosie Rodriguez MD [Primary Care Provider] - Please follow up with your Primary Care Physician in: within 1-2 weeks Test Results: Test results from this visit will be discussed in further detail at your follow- up appointment, if applicable. Proposed Discharge Date: 06/29/18
--- NOTE | 2018-06-29 13:22 | DS.PCM_ITS ---
Discharge Date and Diagnosis Date of Admission: 06/28/18 Date of Discharge: 06/29/18 - Primary Discharge Diagnosis Active and Suspected Problems (Last Updated 06/28/18 @ 15:02 by Zohaib Billingsley DO) Dysarthria (Acute) Medication side-effect Hospital Course and Treatment Imaging Results: Clinical Impression(s) from Imaging Studies Brain CT 06/28/18 13:28 IMPRESSION: Chronic involutional changes of the brain. Sinusitis. Electronically Signed: Binh Galvan, at 14:09 EDT , Service support , Chest X-Ray 06/28/18 13:28 IMPRESSION: No acute abnormality is seen. Electronically Signed: Binh Galvan, at 14:25 EDT , Service support , Brain MRI 06/28/18 15:45 IMPRESSION: No evidence of acute infarct or hemorrhage. Mild microangiopathic white matter disease. Electronically Signed: Rudy Murphy MD at 21:25 EDT Tel , Service support , Head MRA 06/28/18 15:45 IMPRESSION: Normal MRA of the head Electronically Signed: Rudy Murphy MD at 22:00 EDT Tel , Service support , Neck MRA 06/28/18 15:45 IMPRESSION: Normal bilateral cervical carotid and vertebral arteries. Electronically Signed: Rudy Murphy MD at 22:03 EDT Tel , Service support , None Operations: None Procedures: 2-D Echocardiogram Summary of Care Provided: The patient is a 67 year old M past medical history of hypertension, depression who comes in after recent 2-week illness, and start of some pfck-gfk-tjvkhpn medications with slight redness in his speech. Was admitted to the telemetry floor. Vitals remained stable. MRI of the brain as well as MRA of the head and neck was negative for any acute stroke. His 2D echo was unremarkable. HbA1c was 5.7. Patient's slurred speech was felt to be related to medication side effect especially the Sudafed with the combination of the cough syrup with codeine. Patient was asked to follow-up with a primary care doctor within 2 weeks. Advised to avoid taking newr-yig-zllkdje sedatives. Subjective: On the day of discharge, patient was seen and examined. He no longer has slurred speech. He has been ambulating around the unit with no events. No acute events on telemetry. - Physical Exam General: Alert, Oriented x3, Cooperative, No apparent distress HEENT: Atraumatic, PERRLA, EOMI, Normocephalic Oral: Moist Mucosa Neck: Supple Lungs: Clear to auscultation, Normal air movement Cardiovascular: Regular rate, Regular Rhythm, Normal S1, Normal S2, No murmurs Abdomen: Bowel Sounds Present, Soft, Non Tender, Non-Distended, No Hepato- splenomegaly Extremities: No edema Skin: No rashes, No breakdown Musculoskeletal: No Tenderness to Palpation of Joints or Extremities Lymphatic: No Cervical, Supraclavicular, or Inguinal Adenopathy Neurological: Cranial nerves II-XII grossly intact, Neuro grossly intact Psych/Mental Status: Normal Affect, Appropriate Vital Signs Temp Pulse Resp BP Pulse Ox 98.7 F 64 17 143/80 H 95 06/29/18 11:17 06/29/18 11:25 06/29/18 11:17 06/29/18 11:17 06/29/18 11:17 Oxygen Delivery Method Room Air Weight: 98.2 kg Body Mass Index (BMI) 32.9 Finger Stick Blood Glucose 106 Intake and Output for Last 24 Hours 06/27/18 06/28/18 06/29/18 23:59 23:59 23:59 Intake Total 676 / 676 2306 / 2306 Balance 676 / 676 2306 / 2306 Laboratory Tests Past 24 Hrs 06/28/18 06/28/18 06/28/18 13:13 13:13 13:13 WBC 4.8 RBC 4.13 L Hgb 12.5 L Hct 36.2 L MCV 87.7 MCH 30.3 MCHC 34.5 RDW 12.4 RDW Differential 40.2 Plt Count 228 MPV 9.5 Immature Gran % (Auto) 0.200 Neut % (Auto) 58.1 Lymph % (Auto) 26.6 [place] % (Auto) 11.0 H Eos % (Auto) 3.9 Baso % (Auto) 0.2 Absolute Neuts (auto) 2.8 Absolute Lymphs (auto) 1.28 Total Counted Not Reportable PT 13.1 INR 1.0 APTT 26.9 Sodium 138 Potassium 3.8 Chloride 105 Carbon Dioxide 27.0 Anion Gap 6 BUN 34 H Creatinine 1.36 H Estim Creat Clear Calc 49.60 Est GFR (MDRD) Af Amer 67 Est GFR (MDRD) Non-Af 55 L BUN/Creatinine Ratio 25.0 H Glucose 103 Hemoglobin A1c Calcium 8.5 Troponin I < 0.015 Triglycerides Cholesterol LDL Cholesterol VLDL Cholesterol HDL Cholesterol 06/29/18 06/29/18 06/29/18 05:42 05:42 05:42 WBC 5.3 RBC 4.24 L Hgb 12.8 L Hct 37.1 L MCV 87.5 MCH 30.2 MCHC 34.5 RDW 12.5 RDW Differential 40.1 Plt Count 250 MPV 9.5 Immature Gran % (Auto) Neut % (Auto) Lymph % (Auto) [place] % (Auto) Eos % (Auto) Baso % (Auto) Absolute Neuts (auto) Absolute Lymphs (auto) Total Counted PT INR APTT Sodium 141 Potassium 3.9 Chloride 110 H Carbon Dioxide 26.0 Anion Gap 5 BUN 24 H Creatinine 1.30 Estim Creat Clear Calc 51.88 Est GFR (MDRD) Af Amer 70 Est GFR (MDRD) Non-Af 58 L BUN/Creatinine Ratio 18.5 Glucose 86 Hemoglobin A1c Calcium 8.7 Troponin I Triglycerides 154 Cholesterol 192 LDL Cholesterol 120 VLDL Cholesterol 31 HDL Cholesterol 41 06/29/18 05:42 WBC RBC Hgb Hct MCV MCH MCHC RDW RDW Differential Plt Count MPV Immature Gran % (Auto) Neut % (Auto) Lymph % (Auto) [place]cd[place] % (Auto) Eos % (Auto) Baso % (Auto) Absolute Neuts (auto) Absolute Lymphs (auto) Total Counted PT INR APTT Sodium Potassium Chloride Carbon Dioxide Anion Gap BUN Creatinine Estim Creat Clear Calc Est GFR (MDRD) Af Amer Est GFR (MDRD) Non-Af BUN/Creatinine Ratio Glucose Hemoglobin A1c 5.7 Calcium Troponin I Triglycerides Cholesterol LDL Cholesterol VLDL Cholesterol HDL Cholesterol Discharge Diet: Low fat/ Low Cholesterol, 2000 mg Sodium Diet Discharge Activity: Return to Normal Activity Home Medications: Medications to take at Discharge Hydrochlorothiazide [Hctz] 25 mg PO DAILY 03/01/18 Lamotrigine [Lamictal] 200 mg PO QHS 03/01/18 Losartan Potassium [Cozaar] 100 mg PO DAILY 03/01/18 Metoprolol Succinate [Toprol Xl] 100 mg PO QHS 03/01/18 Quetiapine Fumarate [Seroquel] 100 mg PO QHS 03/01/18 Tamsulosin HCl [Flomax] 0.4 mg PO QHS 03/01/18 Aspirin [Aspirin, Baby] 81 mg PO DAILY@0800 #30 tab.chew 06/29/18 Following Prescrptions Were Given to Patient: Aspirin [Aspirin, Baby] 81 mg PO DAILY@0800 #30 tab.chew Primary Care Physician: Rosie Rodriguez MD [Primary Care Provider] - Please follow up with your Primary Care Physician in: within 1-2 weeks Medical Necessity - Tobacco Use Smoking Status: Never smoker Tobacco Use: Non-smoker Meaningful Use Info Meaningful Use Diagnoses (Choose all that apply): None applicable Code Visit OBSV E&M: 04846 Observation care discharge
--- NOTE | 2018-06-29 13:27 | CHAPLAIN ---
Type of Pastoral Visit _x__ Initial Visit ___ Follow-up Visit ___ On-call Visit ___ General Patient Visit ___ Spiritual Assessment ___ Family Conference ___ Bereavement ___ Rapid Response ___ Code Blue ___ Other (describe below) Pastoral Care Referral From _x__ Patient ___ Family ___ Nurse ___ Physician ___ Forming Operator ___ Executive Director Of Marketing ___ Other (describe below) Sacrament/Intervention _x__ Active listening ___ Anointing ___ Restoration ___ Bereavement ___ Communion _x__ Vonda exploration ___ _x__ Life review _x__ Prayer ___ Reconciliation ___ Sacrament of Sick ___ Supportive presence ___ Wedding ___ Other (describe below) Pastoral Comments
== END 2018-06-29 13:14 | disposition home or self-care (01) ==
LOC: ED 14:12 → PCU 15:08
PROVIDERS: Emergency Provider Emergency Medicine; Family Provider Family Medicine; PCP Family Medicine; Visit Provider Internal Medicine
DX: R47.1 Dysarthria and anarthria (principal); I10 Essential (primary) hypertension; F32.9 Major depressive disorder, single episode, unspecified; Z79.899 Other long term (current) drug therapy; R42 Dizziness and giddiness; R29.700 NIHSS score 0
CPT/HCPCS: 36415; 70450; 70544; 70549; 70553; 71045; 80048; 80061; 82962; 83036; 84484; 85025; 85027; 85610; 85730; 92523; 92610; 93005; 93306; 96360; 96361; 96372; 99218; 99285; A9575; J7030; Q9957; A4216; C8929; G0378

== ENCOUNTER → 2018-09-11 | Outpatient (CLI) | payer MEDICARE, OTHER, SELFPAY ==
[2018-06-29 00:32] VITALS: BMI 32.9
[2018-09-11 10:44] LABS: PSA,Total - Annual Screen 0.63 ng/mL (0.00-4.00)
== END | disposition home or self-care (01) ==
PROVIDERS: Family Provider Family Medicine; PCP Family Medicine; Referring Provider Nurse Practitioner Adult Health; Visit Provider Nurse Practitioner Adult Health
DX: Z12.5 Encounter for screening for malignant neoplasm of prostate (principal)
CPT/HCPCS: 36415; 84153; G0103

== ENCOUNTER → 2019-02-06 09:53 | Outpatient (CLI) | payer MEDICARE, OTHER, SELFPAY ==
[2018-06-29 00:32] VITALS: BMI 32.9
[2019-02-06 12:30] LABS: Anion Gap 7 (5-15); BUN 26 mg/dL (7-18); BUN/Creat Ratio 17.2 RATIO (10-20); Calcium,Total 8.9 mg/dL (8.5-10.1); Chloride 105 mmol/L (98-107); Cholesterol 248 mg/dL (200); Creatinine, Serum 1.51 mg/dL (0.70-1.30); EST Glomerular Filtration Rate 49 mL/min (>60); Est Glom Filt Rate - Afr Amer 59 mL/min (>60); Glucose 85 mg/dL (74-106); High Density Lipoprotein 52 mg/dL; Potassium 4.2 mmol/L (3.5-5.1); Sodium Level 141 mmol/L (136-145); Triglycerides 116 mg/dL; Very Low Density Lipoprotein 23 mg/dL (5-40)
== END ==
PROVIDERS: Family Provider Family Medicine; PCP Family Medicine; Referring Provider Family Medicine; Visit Provider Family Medicine
DX: I10 Essential (primary) hypertension (principal)
CPT/HCPCS: 36415; 80048; 80061

== ENCOUNTER → 2019-08-07 10:52 | Outpatient (CLI) | payer MEDICARE, OTHER, SELFPAY ==
[2018-06-29 00:32] VITALS: BMI 32.9
[2019-08-07 13:20] LABS: Anion Gap 6 (5-15); BUN 32 mg/dL (7-18); BUN/Creat Ratio 21.6 RATIO (10-20); Calcium,Total 9.1 mg/dL (8.5-10.1); Chloride 106 mmol/L (98-107); Creatinine, Serum 1.48 mg/dL (0.70-1.30); EST Glomerular Filtration Rate 50 mL/min (>60); Est Glom Filt Rate - Afr Amer 60 mL/min (>60); Glucose 85 mg/dL (74-106); Potassium 3.9 mmol/L (3.5-5.1); Sodium Level 140 mmol/L (136-145)
== END ==
PROVIDERS: PCP Family Medicine; Visit Provider Family Medicine
DX: I10 Essential (primary) hypertension (principal)
CPT/HCPCS: 36415; 80048

== ENCOUNTER → 2019-08-09 06:20 | Outpatient (CLI) | payer MEDICARE, OTHER, SELFPAY ==
[2018-06-29 00:32] VITALS: BMI 32.9
--- NOTE | 2019-08-09 12:52 | STRESSREP_ITS ---
Stress Test Report Exercise myocardial perfusion stress test. Stress protocol: Resting EKG demonstrates normal sinus rhythm with a rate of 67 bpm normal inter vals are noted resting blood pressures 140/92 mmHg. The patient exercised according to regular Eulalio protocol for a total duration of 9 minutes and 45 seconds. The maximum heart rate attained was 139 bpm which was 93% of maximum predicted heart rate the maximum workload was 11.3 metabolic equivalents. At rest there were no ST or T wave changes noted suggest ischemia at peak exercise upsloping ST changes and were noted with no meet the criteria for ischemia. The resting blood pressure was 140/92 mmHg with a peak blood pressure 180/82 mmHg. No clinical angina was noted. Myocardial perfusion protocol. 14.3 mCi of technetium 99m sestamibi was injected at rest. The patient exercised according to regular Eulalio protocol for 9 minutes and 45 seconds at peak exercise 45.0 mCi of technetium 99m sestamibi was injected stress images were obtained stress and rest images were reconstructed in comparing the short axis vertical and horizontal long axis. Gated images were also obtained Perfusion SPECT analysis: Review of the images demonstrate normal uptake of tracer noted in all areas of the myocardium. The resting images similarly demonstrate normal uptake of tracer noted in all areas of the myocardium. No reversibility is noted to suggest ischemia no previous infarct is noted. Gated SPECT analysis: The gated ejection fraction is 63%. Conclusion: Normal exercise myocardial perfusion stress test at a high workload. Preserved ejection fraction. Excellent functional capacity.
== END ==
PROVIDERS: PCP Family Medicine; Referring Provider Family Medicine; Visit Provider Family Medicine
DX: R07.9 Chest pain, unspecified (principal)
CPT/HCPCS: 78452; 93017; A9500; A4216

== ENCOUNTER 2020-03-23 08:30 | Outpatient (RCR) | payer MEDICARE, OTHER, SELFPAY ==
[2018-06-29 00:32] VITALS: BMI 32.9
--- NOTE | 2020-03-23 09:10 | BH.SGPN.GN ---
Behaviors/Verbalizations/Mental Status: [] Eye contact is good. Motor activity is appropriate. Appearance is neat. Speech is Appropriate. Mood is anxious. Affect is congruent. Thoughts are linear and logical. No evidence of psychosis. Reviewed daily check in sheet and no reports of suicidal ideations or intent. Client Response/Progress/Benefit: [] Pt participated when prompted. Shared that today is his first day in IOP. Entered IOP to work on depression and anxiety which is impacting his life. 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 Struggling with change and loss of identity. Shared that he was able to relate to other peers struggles. Group welcomed him to the group and provided some feedback on first day and week. No progress noted as this was pt's first group. Benefited from support. Will continue in IOP to maintain safety, increase healthy coping, and decrease intrusive thoughts. Narrative Note: []
--- NOTE | 2020-03-23 10:18 | BH.SGPN.GN ---
Behaviors/Verbalizations/Mental Status: []Client alert and oriented, neatly dressed and groomed. Eye contact good. Motor activity appropriate. Speech within normal limits. Affect constricted, mood depressed. Thoughts linear, logical, no signs of hallucinations or delusions. Client Response/Progress/Benefit: []Client engaged throughout session AEB active listening and taking notes. Connected with discussion on crisis and how coping with external crises by using unhealthy coping skills could result in a personal crisis. Client often nodded and shared that crisis is ?something we don?t expect.? Group reflected on the importance of having awareness of personal warning signs in order to prevent reaching crisis point. Group identified potential warning signs for crisis and client completed the personal warning signs worksheet. Client identified personal crisis warning signs to include: racing thoughts, difficulty concentrating, and loss of functioning. Client benefited by increasing awareness of what leads to crisis and personal warning signs. Client?s first day of IOP tx. Will continue IOP tx to prevent decompensation, increase healthy coping skills, and maintain safety. Narrative Note: []
--- NOTE | 2020-03-23 13:59 | BH.MDN_ITS ---
Multi-Disciplinary Note - Note 45-min Individual Time Started:: 12:50 Date: 03/23/20 Purpose of session/treatment goals addressed:: Met with patients to discuss any thoughts or concerns on pt's first day of IOP. Also met to begin to work on treatment plan. Eye Contact:: Fair Motor Activity:: Appropriate Appearance:: Neat Speech:: Appropriate Mood:: Anxious Affect:: Congruent Thoughts:: Linear, Logical, No evidence of hallucinations/delusions noted Staff Interventions:: Provided education on OCD subtypes including Christianity OCD. Provided educational handouts for pt and family. Provided some inital affirmations to combat thoughts and encouraged mindfullness and sitting with uncertainty. Client Response:: Pt presented as ambivalant regarding group counseling this AM. He is uncertain what type of treatment will be helpful for his obessive thoughts. He has been participating in individual counseling for several weeks with symptoms worsening and attempts to find a specialist in the area have been difficult due to limited clinicians and the pandemic. Obsessions have impacted daily functioning and even led to suicidal thoughts making him appropriate for IOP. Admits that he does not do well with doubt or uncertainy in any situation. 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 Intrusive thoughts i have thoughts that I have that my mind keeps telling me are true but I don't think they are. Limited knowledge of intrustive thoughts, mandaen OCD, or scrupulosity. Attentive during some brief education on mandaen OCD and its similiarity to other forms of OCD. Risks/Concerns:: No risk noted. Pt completed [place] screening earlier in the day. Denied any active SI. Progress Toward Goals/Plan:: Some progress noted in regards to increased awareness and insight into mandaen OCD. Open to affirmations to help with thoughts and other education. Ambivalant about group counseling and if it will be effective. Unsure about IOP and if all together it can help. Plan is to continue with IOP. Agreeable to more frequent indv sessions due ton intrusive thoughts. Will reach out to pt's current outpatient therapist for more information. Time Stopped:: 12:30
--- NOTE | 2020-03-24 09:10 | BH.SGPN.GN ---
Behaviors/Verbalizations/Mental Status: [] Eye contact is good. Motor activity is appropriate. Appearance is casual. Speech is Appropriate. Mood is depressed. Affect is flat. Thoughts are linear and logical. No evidence of psychosis. Reviewed daily check in sheet pt denies any suicidal thoughts. Client Response/Progress/Benefit: [] Pt participated at times during the group discussion. Shared that his emotion is depressed and overwhelmed. Discussed that his first day in IOP was yesterday and he found some benefit in hearing that other people are struggling with similar issues as him. 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 He is unsure what his purpose will be and how to fill his day. He has been keeping busy with small tasks. Progress noted as pt reports that he learned some skills and affirmations yesterday which have been beneficial. Will continue in IOP to maintain safety, decrease intrusive thoughts, and to improve functioning. Narrative Note: []
--- NOTE | 2020-03-24 10:10 | BH.SGPN.GN ---
Behaviors/Verbalizations/Mental Status: []Client alert and oriented, casually dressed and groomed. Eye contact good. Motor activity appropriate. Speech within normal limits. Affect constricted, mood depressed and anxious. Thoughts linear, logical, no signs of hallucinations or delusions. Client Response/Progress/Benefit: []Client was an engaged participant AEB client providing input throughout discussion and listening attentively to others. Client connected with the topic of obstacles and solutions and worked with group to identify common obstacles that keep people stuck. Client shared current reality as feeling insecure, unfocused, depressed, and beating himself up. Client's realistic, desired reality is to have hope for the future and get back to setting goals. Client identified barriers keeping client from his desired reality which included: isolation, not using coping skills, and negative self-talk. Benefited from group as client was able to identify current and desired mental health state and increase awareness of how barriers can impact progress. Client to continue IOP tx to prevent decompensation, combat negative thinking, and improve self-worth. Narrative Note: []
--- NOTE | 2020-03-24 13:38 | BH.MDN_ITS ---
Multi-Disciplinary Note - Note 45-min Individual Time Started:: 11:15 Date: 03/24/20 Purpose of session/treatment goals addressed:: Reviewed handouts from yesterday. Began to work on psychosocial and developing treatment plan for IOP Eye Contact:: Good Motor Activity:: Appropriate Appearance:: Casual Speech:: Appropriate Mood:: Anxious Affect:: Congruent Thoughts:: Linear, Logical, No evidence of hallucinations/delusions noted Staff Interventions:: Provided education. Processed instrusive thoughts. Provided some reading materials regarding intrusive thoughts. Developed list of referrals for treatment in [place]. Client Response:: Pt identified with some of the educational handouts and discussion yesterday. He specifically has begun to use the affirmation thoughts are thoughts and not facts which he finds helpful. Overwhelmed and depressed regarding his future What am I going to do?. Has been trying to find tasks throughout the day to help distract himself. Yesterday visited family, exercised, and bought a cake with his . Continues to have intrusive thoughts regarding wheter he has sinned or is a good synagogue which are occuring frequently. His malaika is improtant and if he feels like he is not a good synagogue there is nothing left to live for. Intrusvie thoughts often lead to depression and suicidal thoughts. Pt spoke with his family yesterday and they beleive that spending the winter in [place] would be helpful as the weather would be more condusive to keeping busy outside. He thinks this will help with his lack of purpose and thoughts. He beleives they will be leaving on 03/30/19 and wanted to continue in [facility] viritually however this is not possible due to liscensure issues with therapists. Risks/Concerns:: No risks or concerned noted. Denies active suicidal thoughts, plan, or intent. Progress Toward Goals/Plan:: Progress noted. More hopeful and confident regarding improving his mental health. Reports benefits from groups and IOP. Responding well to education. Increased awareness and insight. Developing affirmations to challenge thoughts. It appears pt will be discharging from [facility] and moving to [place] on 03/30/20. He plans on discussing this more with his family, however I developed a list of referrals for treatment in [place]. Pt is to continue with [facility] for the remainder of the week. Time Stopped:: 12:00
--- NOTE | 2020-03-25 09:05 | BH.SGPN.GN ---
Behaviors/Verbalizations/Mental Status: []Client alert and oriented, neatly dressed and groomed. Eye contact good. Motor activity appropriate. Speech within normal limits. Affect constricted, mood anxious and dysthymic. Thoughts linear, logical, no signs of hallucinations or delusions. Reviewed client?s symptom tracker, no risk for suicidal ideation, plan, or intent as of 03/25/20 Client Response/Progress/Benefit: []Client responded well to session, receptive to feedback from peers. Client reports feeling highly anxious this morning as client has to decide if he wants to move to [place] next week or stay in [place] and continue mental health tx. Client receptive to feedback on ways to improve the decision making process. Client shared positives since last session which included exercising, spending time with family, and reflecting on skills learned in [facility]. Client reports he has been telling himself thoughts are thoughts not facts. Appeared to benefit from group support and ideas. Will keep IOP staff informed about status on moving. Client will discharge from [facility] if he moves. Narrative Note: []
--- NOTE | 2020-03-25 10:15 | BH.SGPN.GN ---
Behaviors/Verbalizations/Mental Status: [] Eye contact is good. Motor activity is appropriate. Appearance is casual. Speech is Appropriate. Mood is anxious. Affect is congruent. Thoughts are linear and logical. No evidence of psychosis. Client Response/Progress/Benefit: [] Pt was an active participant in group discussion and activity. Attentive during psychoeducation and discussion on famous people who have overcome set-backs and failures. Participated with peers in coming up with descriptions of failure which included; messing up, not accomplishing a goal, making the wrong choice, and giving up. Group discussed the impact of fear of failure stating that it can lead to; inaction, increased anxiety, self-fulfilling prophecy, and it can keep them from reaching goals or even trying. Pt benefited from group as evidenced by increased insight and awareness of the impact of fear of failure on mood and actions. Will continue in IOP to maintain safety, minimize intrusive thoughts, and increase healthy coping skills. Narrative Note: []
--- NOTE | 2020-03-25 10:15 | BH.NA ---
Physical Data - Vital Signs Pulse Rate: 57 Blood Pressure: 180/95 - Height/Weight Height: 1.73 m Weight:: 96.162 kg Weight in Pounds: 212.0 lbs Current Medication Compliance - Medication Compliance Do you take your medication as prescribed?: No - not always compliant with BP medications Nutritional History - Appetite Nutritional Instructions:: If client shows signs of a swallowing problem, weight change of 10 pounds or more in the last month, or is on a diabetic diet, the physician will review and request a dietitian consult, as appropriate. All unintentional weight loss will be referred to the physician for decision on need for dietitian consult. Describe your appetite:: Fair Additional nutritional information:: states has lost 5lbs in the last month due to lack of appetite. Functional Assessment - Sleep Pattern Describe any problems with sleeping: Client states last night he slept approximately 7 hours. Client states the two previous nights were much less. - Activities Motor Activity:: Functional Sensory/Communication Assess - Vision Problems Do you have any vision problems?: Glasses - Communication Problems Do you have difficulty understanding what people are saying?: No Medical Problems/History - Cardiac Conditions Cardiovascular: Hypertension, Hyperlipidemia - Cancer History Type of Cancer:: Skin (non-melanoma) - Pain Assessment Do you have acute or chronic pain?: No - Family History Family History: Family History (Last Updated 06/28/18 @ 15:[address] Zohaib Billingsley, ) Brother CVA (cerebral vascular accident) - Additional History Additional comments:: basal cell carcinoma on face Surgical History - Surgical History Have you had any surgeries? If so, list type and date:: Yes - right shoulder 2017 Substance Abuse - Substance Abuse Please describe substance abuse in the last 30 days:: Client denies alcohol, tobacco or drug use. Client states he rarely drinks caffiene. Mental Status Summary - Mental Status Significant Findings/Observations on Appearance and Mood:: Client is alert and oriented x 4. Client is casually groomed. Client is wearing a mask due to COVID19 pandemic. Client is cooperative. Client makes fair eye contact. Client's voice has normal rate and volume. Client appears mildly depressed. Client has normal processing. Client denies delusions/hallucinations. Client denies SI. Suicide Assessment - Suicidal Ideation Are you currently or have you been suicidal in the past?: Yes - denies SI this day Suicidal Intentional Rating Scale (SIRS): Suicidal thoughts (past) Physician Notification: If Active suicidal thoughts/Will not contract for safety is checked, contact physician and document in the Physician Notification section below. Past Psychiatric History - MH Treatment Hx Past Psychiatric Medications:: Christiano. Client states he has been on many others but does not remember their names. Age of first mental health symptoms: Client states he was diagnosed with OCD in 2003. Client states one psychiatrist told him he had bipolar about 10 years ago, and client stated I didn't think I had it then, but the more I think about how I feel now, I think I do. Describe (age, circumstance, etc) any past hospitalizations: Client was hospitalized in 2002 and 2004 for depression. Current providers for mental health treatment (counselor, psychiatrist, counter caser, etc.): therapy and psychiatry at [facility]. Fall Risk Assessment - Age Age: 69 or older - Mental Status Mental Status: Willing & able to ask for assistance when needed - Physical Status Physical Status: No problems - Impairments Impairments: None - Elimination Elimination: Continent AND independent - Gait or Balance Gait or Balance: Walks independently - Hx of Falls History of falls in the past 6 months: No known history - Medications/Substances Psychotropics:: Antidepressants, Mood stabilizers Others:: Antihypertensives, Diuretics Medications/substances used within the past 24 hours or ordered to administer: 3 or more of the medications/substances listed above - Total Score Total Points:: 4 RN Summary of Impressions - Impressions Recommendations: Include psychiatric and medical issues, treatment planning recommendations, and discharge planning needs. Impressions: Psychiatric Issues: OCD. Rule out bipolar. Impression: Medical Issues: Client's BP was 180/95. Discussed BP with client. Client states he does have machine at home to check BP but it is broken, but states he will buy another one to be able to check BP at home. Client states he is not consistent about taking BP medications. Discussed with client how important taking his BP meds are for his health and encouraged checking BP at home and calling PCP office if BP is high at home with consistent medication compliance. - Level of Care How do the client's current symptoms and functional deficits support need for this level of care?: Client was referred to IOP by outpatient therapy for intrusive thoughts. 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 Client states he made a mess of the business and his son is trying to clean up after me. Client states he has been having obsessions about the bible, reading the bad parts and focusing on how he is not a good jehovah's witness and what he is doing wrong religiously. Client states he used to have obsessions about honesty, and would go to people and apologize for being dishonest but states most of his obsessions are now focused on the bible. Client denies SI. Client endorses ruminations, decreased energy, hopelessness, and obsessive thoughts about episcopalian. Client states his current plan is to leave Monday to go live near his son in [place] with his . IOP will promote gains and prevent further decompensation while providing social support and skills training.
[2020-03-25 11:02] VITALS: BP 180/95; PULSE 57
--- NOTE | 2020-03-25 12:30 | BH.COMM ---
Communication Note - Communication with Client Communication Note: Met with patient after group. He remains unsure if moving to [place] will be helpful or not however he has decided to make the move for the winter. He was given referrals to specialists in [place]. He apologized and thanked therapist for his time. Pt will be discharged.
--- NOTE | 2020-03-25 13:34 | BH.DS_ITS ---
Discharge Summary - Demographics Date of Admission:: 03/23/20 Discharge Date: 03/25/20 Presenting Problems at Admission:: Pt is a 69 year old male with hx of OCD and MDD. Hx of previous psychiatric admission in 2002. Referred to IOP by his outpatient therapist due to intrusive thoughts which are interfering with daily functioning. Pt reports intrusive thoughts centered around his malaika. Pt reports that being a good [employer] is everything and my mind keeps telling me that I'm not. States this make him believe there is no hope. Ruminates on verses of the Bible that further make him beleive he is not a good Restoration. 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 Loss of identity. Small tasks are overwhelming. Fleeting suicidal thoughts due to psychosocial stressors and intrusive thoughts. Survival ambivalance. Denies active SI, plan, or intent. Hx of previous suicide attempt in 2005. Endorses decreased appetite, low energy, low motivation, and hopelessness. Several supports. Linked with counseling and psychiatry through [facility]. Denies substance abuse. Denies HI or psychosis. Due to fleetign SI, intrusive thoughts, Obesssions, and mental health impacting functioning recommended [facility] level of care. Discharge Diagnoses:: MDD, recurrent, severe, F33.2. OCD F42 Reason for Discharge:: Pt and his have decided to spend the winter at [facility] in [place] and will be leaving on 03/30/20. Due to moving out of the state pt is not eligible to continue with [facility] virtually. - Treatment Progress During Treatment & Response: Little progress noted as pt only attended 3 days of IOP. Due to limited time in the program pt did not meet with psychiatrist or fully complete psychosocial or treatment plan. He did report improved mood and increased hope. Also benefited from group support. He was started in the program on Monday due to the urging of his outpatient therapist. Issues Still to be Addressed:: Depression, grief (loss of business), fleeting SI, intrusive thoughts, OCD, scrupulosity, Discharge Recommendations/Instructions:: Pt was given referrals to OCD specialists in [place] for Rastafari OCD. Pt plans to meet with his therapist Aleena Ricks this afternoon to discuss other possible referrals. Discharge Handout: Complete Discharge Handout with client on aftercare options and continuity of care.
== END 2020-03-25 14:00 | disposition home or self-care (01) ==
LOC: BHIOP 08:30
PROVIDERS: PCP Family Medicine; Referring Provider Psychiatry & Neurology Psychiatry; Visit Provider Psychiatry & Neurology Psychiatry
DX: F33.2 Major depressive disorder, recurrent severe without psychotic features (principal); F42.9 Obsessive-compulsive disorder, unspecified
CPT/HCPCS: H0035; 90834; 90853

== ENCOUNTER → 2020-07-02 11:17 | Outpatient (CLI) | payer MEDICARE, OTHER, SELFPAY ==
[2018-06-29 00:32] VITALS: BMI 32.9
[2020-07-02 12:15] LABS: Absolute Lymphocyte Count 0.86 X10^3/uL (0.83-4.51); Absolute Neutrophil Count 4.8 X10^3/uL (2.0-7.7); Basophil# 0.03 X10^3/uL; Basophil% 0.5 % (0-1); Eosinophil# 0.12 X10^3/uL; Eosinophils% 1.9 % (0-5); Hemoglobin 14.3 g/dL (13.0-16.5); Lymphocyte # 0.86 X10^3/ul (4.0); Lymphocyte % 13.7 % (19-41); Mean Corpuscular Hgb 30.9 pg (27.0-32.0); Mean Corpuscular Volume 90.7 fL (80-94); Mean Platelet Vol. 9.6 fl (6.2-12.0); Monocyte# 0.45 X10^3/uL; Monocyte% 7.1 % (0-10); NRBC Flagged by Analyzer 0 % (0-5); Neutrophil # 4.82 X10^3/uL (2.7-7.7); Neutrophil % 76.5 % (47-70); Platelet Count 216 K/mm3 (150-450); RBC Distribution Width CV 12.3 % (11.6-14.6); RBC Distribution Width SD 40.6 fl (35.1-43.9); Red Blood Count 4.63 M/mm3 (4.6-6.2); White Blood Count 6.3 K/mm3 (4.4-11.0)
[2020-07-02 12:43] LABS: ALB/GLOB Ratio 1.1 RATIO (0.9-2.4); AST(SGOT) 14 U/L (15-37); Alanine Aminotransfer ALT/SGPT 28 U/L (16-61); Albumin, Serum 3.8 g/dL (3.2-5.0); Alkaline Phosphatase 91 U/L (45-117); Anion Gap 5 (5-15); BUN 17 mg/dL (7-18); BUN/Creat Ratio 15.2 RATIO (10-20); Calcium,Total 10.1 mg/dL (8.5-10.1); Chloride 98 mmol/L (98-107); Creatinine, Serum 1.12 mg/dL (0.70-1.30); EST Glomerular Filtration Rate 69 mL/min (>60); Est Glom Filt Rate - Afr Amer 83 mL/min (>60); Globulin 3.6 g/dL (2.2-4.2); Glucose 118 mg/dL (74-106); Potassium 3.5 mmol/L (3.5-5.1); Protein, Total 7.4 g/dL (6.4-8.2); Sodium Level 133 mmol/L (136-145)
== END ==
PROVIDERS: PCP Family Medicine; Referring Provider Family Medicine; Visit Provider Family Medicine
DX: K57.92 Diverticulitis of intestine, part unspecified, without perforation or abscess without bleeding (principal)
CPT/HCPCS: 36415; 80053; 85025

== ENCOUNTER → 2020-07-02 11:39 | Outpatient (CLI) | payer MEDICARE, OTHER, SELFPAY ==
[2018-06-29 00:32] VITALS: BMI 32.9
--- NOTE | 2020-07-02 11:42 | CT_ITS ---
EXAM: CT ABDOMEN AND PELVIS WITH INTRAVENOUS CONTRAST CLINICAL INDICATION: Diverticulitis. TECHNIQUE: Helically acquired images were obtained of the abdomen and pelvis with intravenous contrast. This CT exam was performed using one or more of the following dose reduction techniques: automated exposure control, adjustment of the mA and/or kV according to patient size, and/or use of iterative reconstruction technique. This report was created using [employer] report generation technology. CONTRAST: Oral and amp; IV GASTROGRAFIN and amp; 100ML ISOVUE 300 COMPARISON: None. FINDINGS: LOWER THORAX: Minimal interlobular septal thickening of the right posterior lung base. Minimal subsegmental atelectasis in left lung base. No cardiomegaly. No significant pericardial effusion. ABDOMEN: LIVER: Unremarkable. Homogeneous. No focal mass. GALLBLADDER AND BILE DUCTS: Unremarkable. No calcified gallstones. No gallbladder distention or wall edema. No intra- or extrahepatic biliary ductal dilation. PANCREAS: Unremarkable. No focal cystic or solid mass. SPLEEN: Unremarkable. Normal size without focal cystic or solid mass. ADRENALS: Unremarkable. No nodules. KIDNEYS AND URETERS: Right renal atrophy. Normal left kidney with compensatory hypertrophy. No hydronephrosis. STOMACH AND BOWEL: Mild thickening of the intramural wall of the duodenal bulb. No stomach or bowel distention. PELVIS: APPENDIX: The appendix is not visualized despite the presence of contrast in the terminal ileum and cecum. No secondary signs of acute appendicitis. BLADDER: Unremarkable. REPRODUCTIVE: Unremarkable as visualized. No mass. ABDOMEN and PELVIS: INTRAPERITONEAL SPACE: Unremarkable. No ascites or other fluid collection. No free air. BONES/JOINTS: Degenerative disc space height narrowing with degenerative vacuum phenomenon at L3-L4 and L4-L5 disc space levels. No acute osseous abnormality. No suspicious lytic or blastic abnormality. SOFT TISSUES: Unremarkable. No discrete abdominal or pelvic wall hernia. VASCULATURE: Unremarkable. Abdominal aorta is non-dilated. LYMPH NODES: Unremarkable. No enlarged lymph nodes. CT/Abdomen/Pelvis WITH Contrast IMPRESSION: 1. No CT evidence of colonic diverticulosis or diverticulitis. 2. Mild intramural thickening of the duodenal bulb may be due to mild duodenitis. EGD will help if clinically warranted. 3. The appendix is not visualized but there are no secondary signs of acute appendicitis. 4. Right renal atrophy and compensatory hypertrophy of the left kidney. Electronically Signed: Kings Matute MD at 14:29 EDT , Service support ,
== END ==
PROVIDERS: PCP Family Medicine; Referring Provider Family Medicine; Visit Provider Family Medicine
DX: K57.92 Diverticulitis of intestine, part unspecified, without perforation or abscess without bleeding (principal)
CPT/HCPCS: 36415; 74177; 80053; 85025; Q9967

== ENCOUNTER → 2020-07-07 15:09 | Outpatient (CLI) | payer MEDICARE, OTHER, SELFPAY ==
[2018-06-29 00:32] VITALS: BMI 32.9
[2020-07-07 17:57] LABS: Absolute Lymphocyte Count 0.83 X10^3/uL (0.83-4.51); Absolute Neutrophil Count 4.6 X10^3/uL (2.0-7.7); Basophil# 0.03 X10^3/uL; Basophil% 0.5 % (0-1); Eosinophil# 0.17 X10^3/uL; Eosinophils% 2.8 % (0-5); Hematocrit 42.2 % (40-54); Hemoglobin 13.9 g/dL (13.0-16.5); Lymphocyte # 0.83 X10^3/ul (4.0); Lymphocyte % 13.5 % (19-41); Mean Corp Hgb Conc 32.9 g/dL (32-36); Mean Corpuscular Hgb 30.3 pg (27.0-32.0); Mean Corpuscular Volume 91.9 fL (80-94); Mean Platelet Vol. 9.9 fl (6.2-12.0); Monocyte# 0.49 X10^3/uL; NRBC Flagged by Analyzer 0 % (0-5); Neutrophil # 4.59 X10^3/uL (2.7-7.7); Neutrophil % 74.9 % (47-70); Platelet Count 236 K/mm3 (150-450); RBC Distribution Width CV 12.4 % (11.6-14.6); RBC Distribution Width SD 41.9 fl (35.1-43.9); Red Blood Count 4.59 M/mm3 (4.6-6.2); White Blood Count 6.1 K/mm3 (4.4-11.0)
[2020-07-07 18:23] LABS: ALB/GLOB Ratio 1.1 RATIO (0.9-2.4); AST(SGOT) 12 U/L (15-37); Alanine Aminotransfer ALT/SGPT 24 U/L (16-61); Albumin, Serum 3.8 g/dL (3.2-5.0); Alkaline Phosphatase 89 U/L (45-117); Anion Gap 5 (5-15); BUN 20 mg/dL (7-18); BUN/Creat Ratio 17.2 RATIO (10-20); Calcium,Total 9.4 mg/dL (8.5-10.1); Chloride 102 mmol/L (98-107); Creatinine, Serum 1.16 mg/dL (0.70-1.30); EST Glomerular Filtration Rate 66 mL/min (>60); Est Glom Filt Rate - Afr Amer 80 mL/min (>60); Globulin 3.6 g/dL (2.2-4.2); Glucose 82 mg/dL (74-106); Potassium 3.7 mmol/L (3.5-5.1); Protein, Total 7.4 g/dL (6.4-8.2); Sodium Level 135 mmol/L (136-145); Thyroid Stim Hormone (TSH) 1.77 uIU/mL (0.358-3.74)
== END ==
PROVIDERS: PCP Family Medicine; Referring Provider Family Medicine; Visit Provider Family Medicine
DX: F31.9 Bipolar disorder, unspecified (principal); I10 Essential (primary) hypertension
CPT/HCPCS: 36415; 80053; 84443; 85025

== ENCOUNTER → 2020-11-20 13:06 | Outpatient (CLI) | payer MEDICARE, OTHER, SELFPAY ==
--- NOTE | 2020-11-20 13:19 | VDLE_ITS ---
Reason For Study: Pain RIGHT LEFT CFV is compressible, spontaneous, phasic, CFV is compressible, spontaneous, phasic, competent and demonstrates normal competent, and demonstrates normal augmentation. augmentation. FV is compressible, spontaneous, phasic, competent and demonstrates normal augmentation. POP V is compressible, spontaneous, phasic, competent and demonstrates normal augmentation. T/P Trunk is compressible. PTV is compressible. RT PerV is compressible. Rt GSV in the calf is dilated and non compressible consistent with acute SVT. Procedure This is a venous duplex using B-mode, color flow and spectral Doppler. Exam performed in department. VL/Venous Duplex US, Unilateral Interpretation Summary There is no evidence of right lower extremity deep vein thrombosis. Superficial thrombophlebitis right great saphenous vein in the calf. Normal flow patterns left common femoral vein Ordering Physician: Rosie Rodriguez Referring Physician: Rosie Rodriguez Performed By: Ryanne Diaz, HALI, RVT
== END ==
PROVIDERS: PCP Family Medicine; Referring Provider Family Medicine; Visit Provider Family Medicine
DX: I80.01 Phlebitis and thrombophlebitis of superficial vessels of right lower extremity (principal)
CPT/HCPCS: 93971

== ENCOUNTER → 2021-01-29 14:56 | Outpatient (CLI) | payer MEDICARE, OTHER, SELFPAY | PROVIDERS: PCP Family Medicine; Referring Provider Family Medicine; Visit Provider Family Medicine | DX: U07.1 COVID-19 (principal) | CPT/HCPCS: 36415; 86769 ==

== ENCOUNTER → 2021-12-17 | Outpatient (CLI) | payer MEDICARE, OTHER, SELFPAY ==
[2021-12-17 17:57] LABS: Microalbumin:Creatinine Ratio 312.6 mg/g CRE (<30 mg/g CRE)
[2021-12-17 19:11] LABS: Anion Gap 8 (5-15); BUN 31 mg/dL (7-18); BUN/Creat Ratio 26.3 RATIO (10-20); Calcium,Total 9.3 mg/dL (8.5-10.1); Chloride 106 mmol/L (98-107); Cholesterol 259 mg/dL (200); Creatinine, Serum 1.18 mg/dL (0.70-1.30); EST Glomerular Filtration Rate 64 mL/min (>60); Est Glom Filt Rate - Afr Amer 78 mL/min (>60); Glucose 102 mg/dL (74-106); High Density Lipoprotein 63 mg/dL; Potassium 4.2 mmol/L (3.5-5.1); Sodium Level 142 mmol/L (136-145); Triglycerides 108 mg/dL; Very Low Density Lipoprotein 22 mg/dL (5-40)
== END | disposition home or self-care (01) ==
LOC: MFPLAB 15:11
PROVIDERS: PCP Family Medicine; Referring Provider Family Medicine; Visit Provider Family Medicine
DX: I10 Essential (primary) hypertension (principal)
CPT/HCPCS: 36415; 80048; 80061; 82043; 82570

== ENCOUNTER → 2022-06-27 | Outpatient (CLI) | payer MEDICARE, OTHER, SELFPAY ==
--- NOTE | 2022-06-27 10:56 | RAD_ITS ---
EXAM: XR CHEST, 2 VIEWS CLINICAL INDICATION: DIMINISHED BREATH SOUNDS DIMINISHED BREATH SOUNDS TECHNIQUE: Frontal and lateral views of the chest. This report was created using [employer] report generation technology. COMPARISON: Chest x-ray 06/28/2018. FINDINGS: LUNGS AND PLEURAL SPACES: There is mild chronic left basilar atelectasis. There is no demonstrated pulmonary infiltrate. No pneumothorax. No effusion. HEART: Unremarkable. Cardiac silhouette not enlarged. MEDIASTINUM: Central airways and mediastinal contour are unremarkable. BONES/JOINTS: There are bilateral shoulder prostheses. SOFT TISSUES: Unremarkable. RAD/Chest PA and Lateral IMPRESSION: No acute findings in the chest. Electronically Signed: Freddy Hsu MD at 3:08 EDT Reading Location ID and State: [facility] / [place] , Service support ,
== END | disposition home or self-care (01) ==
LOC: RAD 10:54
PROVIDERS: PCP Family Medicine; Visit Provider Internal Medicine Pulmonary Disease
DX: R06.89 Other abnormalities of breathing (principal)
CPT/HCPCS: 71046

== ENCOUNTER 2022-09-16 08:00 | Outpatient (RCR) | payer MEDICARE, OTHER, SELFPAY ==
--- NOTE | 2022-05-31 14:08 | HP.PTEVAL_ITS ---
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 Date of Evaluation: 05/31/22 Physical Therapist: Donavan Underwood, PT, Cert MDT, OCS - Visit Plan Frequency: 2x /Week Duration: - we Plan: S/P TSR ON 05/02/22. SLING REMOVE RAMOS. SEE GUIDLINES FOR TSR. PT INTERVETIONS 4 WEEKS PROM,4-6 AAROM/ISOMTRICS ,STRENGTHENING RTC/SCAPULAR/DELTOID ,MANUAL THERAPY,CP/MHP - Subjective This 71 y/o male presents to physical therapy with left TSR . 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 Patient had TSR on 05/24/[address] Miranda at [facility] ([facility]) D/C DOS with sling . RTD in 06/06/22 .Over counter stopped Percocet/tramadol. Patient had nerve block. Patient has no paresthesia/tingling. Patient has dressing silver . Pain affects sleeping . Patient sleeps in recliner . Patient is right dominant. Patient condition affects ADLS /self hygiene and QOL .Patient goals to return to normal activity. 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 SKIN: incision well approximate ,dressing intact ,no drainage. NEURO: denies paresthesia/tingling. PROM: shoulder flexion 105 degrees in scaption ,ER 25 degrees. AROM: elbow/wrist WFL - Balance/Special Test Scores Quick DASH Score: 70.4525 - Goals Goal 1:: I with HEP for TSR Goal Time Frame: 8-12 Weeks Goal 2:: Patient to demonstrate 70% improvement with less pain and improved function Goal Time Frame: 8-12 Weeks Goal 3:: Patient to improve AROM with increase flexion 140 degrees ,140 degrees abduction ,ER WFL to improve function and ADL's Goal Time Frame: 8-12 Weeks Goal 4:: Patient increase strength of RTC 4/5 and deltoid 4-/5 to improve ADL's to improve function. Goal Time Frame: 8-12 Weeks Goal 5:: Patient to improve quick dash by 10 points to improve QOL and function. Goal Time Frame: 8-12 Weeks - Rehabilitation Potential Physical Therapy Diagnosis: Patient underwent s/p total shoulder replacement on 05/24/22 with current impairs with ,decrease ROM ,strength ,ADLS and self hygiene thus benefit from skilled PT Rehabilitation Potential: Good - Anticipated Interventions Patient/Client Instruction: Educate patient on: Condition, Plan of Care For the Purpose of:: To decrease pain, To increase ROM, To improve muscle performance and motor function, To improve ability to perform ADL's, To increase tolerance to activity/condition/position, To improve ability of physical actions for home/community/work/leisure, To improve health of tissue, To decrease soft tissue restriction, To increase flexibility/ROM, To prevent re-injury, To improve tolerance to ADL's Therapeutic Exercise to Include: Strength training, Postural training, Passive ROM, Active ROM, Scapular Strength/Stabilization Comment: SEE GUILJAKE TSR For the Purpose of:: To decrease pain, To increase ROM, To improve muscle performance and motor function, To improve ability to perform ADL's, To increase tolerance to activity/condition/position, To improve ability of physical actions for home/community/work/leisure, To improve health of tissue, To decrease soft tissue restriction, To assume or resume ADL's, To improve health and function, To improve tolerance to ADL's Manual Therapy Techniques to Include: Passive ROM For the Purpose of:: To decrease pain, To increase ROM, To improve health of tissue, To decrease soft tissue restriction, To increase flexibility/ROM Thank you for the opportunity to evaluate your patient. For Medicare and Medicare HMO plans, please review the plan of care and approve it. It will need to be FAXED BACK to us at [phone] for Medicare purposes. For Medicare only, by signing this I certify the plan of care. Please let me know if there are questions or concerns regarding this plan of care. Physician Signature: Date:
--- NOTE | 2022-09-16 08:30 | HP.PTDCSUM ---
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 Discharge Date: 09/16/22 Please see the following information for a summary of their discharge status. Subjective: Doing well ready for d/c Left Shoulder Pain Intensity (Out of 10): 0 % Improvement: 75 Objective/Function: POSTURE :WFL. AROM: shoulder flexion 135 degrees ,abduction 150 degrees. MMT: RTC 4/5 ,deltoid 4-/5. MET GOALS Goal 1:: I with HEP for TSR Goal Progress: Goal Met Goal 2:: Patient to demonstrate 70% improvement with less pain and improved function Goal Progress: Goal Met Goal 3:: Patient to improve AROM with increase flexion 140 degrees ,140 degrees abduction ,ER WFL to improve function and ADL's Goal Progress: Goal Met Goal 4:: Patient increase strength of RTC 4/5 and deltoid 4-/5 to improve ADL's to improve function. Goal Progress: Goal Met Goal 5:: Patient to improve quick dash by 10 points to improve QOL and function. Goal Progress: Goal Met Plan: D/C Discharge Comments: HEP If there are questions or concerns regarding this patient's physical therapy, please feel free to call me at [phone]. Thank you for the referral of this patient. Sincerely, Donavan Underwood, PT, Cert MDT, OCS Balance/Gait/Functional tests - Balance/Special Test Scores Quick DASH Score: 13.6350
== END 2022-09-16 19:00 | disposition home or self-care (01) ==
LOC: PT 08:00
PROVIDERS: PCP Family Medicine
DX: Z47.1 Aftercare following joint replacement surgery; Z96.612 Presence of left artificial shoulder joint
CPT/HCPCS: 97110; 97140; 97162

== ENCOUNTER → 2022-12-13 | Outpatient (CLI) | payer MEDICARE, OTHER, SELFPAY ==
[2022-12-13 10:20] LABS: Hematocrit 37.8 % (40-54); Hemoglobin 12.6 g/dL (13.0-16.5); Mean Corp Hgb Conc 33.3 g/dL (32-36); Mean Corpuscular Hgb 31.6 pg (27.0-32.0); Mean Corpuscular Volume 94.7 fL (80-94); Mean Platelet Vol. 9.8 fl (6.2-12.0); Platelet Count 198 K/mm3 (150-450); RBC Distribution Width CV 12.1 % (11.6-14.6); RBC Distribution Width SD 42.5 fl (35.1-43.9); Red Blood Count 3.99 M/mm3 (4.6-6.2); White Blood Count 4.6 K/mm3 (4.4-11.0)
[2022-12-13 10:53] LABS: Vitamin B12 431 pg/mL (211-911)
[2022-12-13 11:38] LABS: ALB/GLOB Ratio 1.3 RATIO (0.9-2.4); AST(SGOT) 13 U/L (15-37); Alanine Aminotransfer ALT/SGPT 21 U/L (16-61); Alkaline Phosphatase 72 U/L (45-117); Anion Gap 5 (5-15); BUN 35 mg/dL (7-18); BUN/Creat Ratio 21.6 RATIO (10-20); Calcium,Total 8.9 mg/dL (8.5-10.1); Chloride 106 mmol/L (98-107); Creatinine, Serum 1.62 mg/dL (0.70-1.30); EST Glomerular Filtration Rate 44 mL/min (>60); Est Glom Filt Rate - Afr Amer 54 mL/min (>60); Glucose 95 mg/dL (74-106); Potassium 3.9 mmol/L (3.5-5.1); Sodium Level 138 mmol/L (136-145)
[2022-12-16 12:08] LABS: Lamotrigine (Lamictal) Level 6.7 ug/mL (2.0-20.0); Vitamin B1, Thiamine 108.5 nmol/L (66.5-200.0)
== END | disposition home or self-care (01) ==
LOC: MTLAB 07:55
PROVIDERS: PCP Family Medicine; Referring Provider Psychiatry & Neurology Neurology; Visit Provider Psychiatry & Neurology Neurology
DX: G20 Parkinson's disease (principal); F31.9 Bipolar disorder, unspecified; G31.84 Mild cognitive impairment of uncertain or unknown etiology
CPT/HCPCS: 36415; 80053; 82140; 82542; 82607; 82746; 84425; 84443; 85027

== ENCOUNTER → 2023-01-02 | Outpatient (CLI) | payer MEDICARE, OTHER, SELFPAY ==
--- NOTE | 2023-01-02 07:09 | MRI_ITS ---
STUDY: MRI BRAIN WITHOUT CONTRAST REASON FOR EXAM: Male, 72 years old. Mild cognitive impairment; parkinsonism R arm shakiness TECHNIQUE: Standardized multiplanar fat and water weighted pulse sequences were obtained. COMPARISON: None. FINDINGS: There is mild cerebral atrophy with widening of the extra-axial spaces and ventricular dilatation. There are multiple white matter hyperintensities, distributed throughout the deep white matter tracts of the cerebral hemispheres, consistent with moderate chronic white matter ischemic changes. Microischemic changes are most prominent along the posterior periventricular regions. There is no evidence for recent intracranial ischemia or other cause of cytotoxic edema on diffusion weighted imaging (DWI). Normal bilateral basal ganglia. Normal thalami. There is no extra-axial fluid accumulation. Normal flow voids within the major intracranial circulation suggesting patency by spin echo criteria. Normal sella turcica, pituitary gland, infundibular stalk, optic chiasm and hypothalamus. Normal tectal plate and pineal gland. Normal midbrain, jessica and medulla. Normal cerebellum. Normal basal cisterns. Normal bilateral temporal bones. Normal bilateral internal auditory canals. No demonstrated orbital abnormality, within the constraints of a routine brain study. Normal visualized paranasal sinuses. Normal calvarium and skull base. Normal visualized soft tissue structures. Normal visualized upper cervical spine. MRI/Brain without Contrast IMPRESSION: Moderate microvascular ischemic changes predominantly within the posterior periventricular regions. Otherwise no evidence of acute intracranial bleed, mass or ischemia. Electronically Signed: Vinod Humphrey DO at 14:14 EDT ,
== END | disposition home or self-care (01) ==
LOC: MRI 07:00
PROVIDERS: PCP Family Medicine; Referring Provider Psychiatry & Neurology Neurology; Visit Provider Psychiatry & Neurology Neurology
DX: G31.84 Mild cognitive impairment of uncertain or unknown etiology (principal); G20.C Parkinsonism, unspecified
CPT/HCPCS: 70551

== ENCOUNTER → 2023-08-15 | Outpatient (CLI) | payer MEDICARE, OTHER, SELFPAY ==
--- NOTE | 2023-08-15 08:59 | CDU_ITS ---
Reason For Study: bruit Rt. Velocities/BP Lt. Velocities/BP Prox CCA 64.5/11.6 cm/sec. Prox CCA 78.4/21.2 cm/sec. Mid CCA 70.2/16.3 cm/sec. Mid CCA 79.5/20.1 cm/sec. Dist CCA 60.7/14.5 cm/sec. Dist CCA 72.9/20.1 cm/sec. Prox ICA 49.8/13.5 cm/sec. Prox ICA 59.3/17.6 cm/sec. Mid ICA 74.0/22.3 cm/sec. Mid ICA 77.7/21.2 cm/sec. Dist ICA 60.8/20.1 cm/sec. Dist ICA 56.4/18.7 cm/sec. Rt. ICA/CCA = 1.1. Lt. ICA/CCA = 1.0. Prox ECA 101.4/12.4 cm/sec. Prox ECA 115.8/13.9 cm/sec. Rt. Vert. 36.6/10.2 cm/sec. Lt. Vert. 39.7/6.5 cm/sec. Right Extracranial There is intimal thickening but no significant atherosclerotic plaque noted in the right common carotid artery. There is heterogeneous, irregular atherosclerotic plaque noted in the right internal carotid artery. There is intimal thickening but no significant atherosclerotic plaque noted in the right external carotid artery. Antegrade flow is noted in the right vertebral artery. Left Extracranial There is homogeneous, smooth atherosclerotic plaque noted in the left common carotid artery. There is heterogeneous, irregular atherosclerotic plaque noted in the left internal carotid artery. There is heterogeneous, irregular atherosclerotic plaque noted in the left external carotid artery. Antegrade flow is noted in the left vertebral artery. Procedure Carotid Duplex [id number]. This is a Carotid Duplex examination using B-mode, color flow and specral Doppler. The exam was diagnostic. Exam performed in department. VL/Carotid Duplex Ultrasound Interpretation Summary Mild (<50%) stenosis right extracranial internal carotid. Mild (<50%) stenosis left extracranial internal carotid. Flow within the vertebral arteries is antegrade bilaterally. Ordering Physician: Pierce Cummings Referring Physician: Pierce Cummings Performed By: Brandon Lugo RVT
== END | disposition home or self-care (01) ==
LOC: CVS 08:55
PROVIDERS: PCP Family Medicine; Referring Provider Psychiatry & Neurology Neurology; Visit Provider Psychiatry & Neurology Neurology
DX: R09.89 Other specified symptoms and signs involving the circulatory and respiratory systems (principal)
CPT/HCPCS: 93880

== ENCOUNTER → 2023-09-13 | Outpatient (CLI) | payer MEDICARE, OTHER, SELFPAY ==
--- NOTE | 2023-09-13 08:52 | ECHOCS_ITS ---
Reason For Study: MURMUR Procedure This was a 2D Doppler, Color Flow transthoracic echocardiogram. The study was technically difficult. D/T body habitus. Contrast injection was performed. Exam performed in department. Left Ventricle Normal LV size. Mild concentric left ventricular hypertrophy. Left ventricular systolic function is normal. The left ventricular ejection fraction is 60 %. Stage 1 diastolic dysfunction. No regional wall motion abnormalities noted. Right Ventricle Normal RV size. Normal systolic function. Atria Normal left atrium. Normal right atrium. Mitral Valve Normal mitral valve. Mild (1+) eccentric mitral valve insufficiency. Tricuspid Valve Normal tricuspid valve. Aortic Valve Trisinus/trileaflet aortic valve. Moderate diffuse aortic valve thickening. Peak aortic valve gradient 33 mmHg. Mean aortic valve gradient 19 mmHg. Mild to moderate aortic stenosis. Pulmonic Valve Normal pulmonic valve. Great Vessels Normal aortic root. The pulmonary is not well visualized. Inferior vena cava collapse with respiration. Pericardium/Pleural No pericardial effusion. Medication 22 gauge I.V. with prn adaptor inserted into right arm. Diluted definity 2.0ml given slow IV push to enhance endocardial definition. MMode/2D Measurements & Calculations LVIDd: 4.3 cm IVSd: 1.2 cm LVOT diam: 2.1 cm LVIDs: 2.7 cm LVPWd: 1.2 cm RVDd: 3.4 cm FS: 37.3 % LVOT area: 3.4 cm2 Ao root diam: 3.8 cm LAV(MOD-bp): 52.2 ml LVAd ap4: 24.7 cm2 LAV(MOD-bp) Indexed: 24.5 ml/m2 LVLd ap4: 8.7 cm LAV(MOD-sp2): 47.2 ml EDV(MOD-sp4): 59.2 ml LAV(MOD-sp4): 45.6 ml EDV(sp4-el): 59.8 ml LVAs ap4: 11.7 cm2 LVLs ap4: 7.0 cm ESV(MOD-sp4): 16.9 ml ESV(sp4-el): 16.5 ml EF(MOD-sp4): 71.4 % EF(sp4-el): 72.4 % LVAd ap2: 25.4 cm2 SV(MOD-sp4): 42.3 ml SV(MOD-sp2): 37.1 ml LVLd ap2: 8.7 cm EDV(MOD-sp2): 61.9 ml EDV(sp2-el): 63.1 ml LVAs ap2: 14.5 cm2 LVLs ap2: 7.1 cm ESV(MOD-sp2): 24.8 ml ESV(sp2-el): 25.4 ml EF(MOD-sp2): 60.0 % SV(sp4-el): 43.3 ml LA dimension(2D): 4.0 cm LA A4 area: 15.7 cm2 TAPSE: 1.9 cm Time Measurements MV dec time: 0.24 sec Doppler Measurements & Calculations MV E max jesse: 69.3 cm/sec Lat Peak E' Jesse: 7.6 cm/sec Med Peak E' Jesse: 7.5 cm/sec MV A max jesse: 86.3 cm/sec E/E' lat: 9.1 E/E' med: 9.3 MV E/A: 0.80 MV V2 max: 88.0 cm/sec MV P1/2t max jesse: 85.4 cm/sec Ao V2 max: 286.0 cm/sec MV max P.1 mmHg MV P1/2t: 68.0 msec Ao max P.9 mmHg MV V2 mean: 44.6 cm/sec MV dec slope: 368.2 cm/sec2 Ao V2 mean: 210.5 cm/sec MV mean P.97 mmHg Ao mean P.4 mmHg MV V2 VTI: 31.6 cm MVA(P1/2t): 3.2 cm2 Ao V2 VTI: 70.1 cm MVA(VTI): 1.9 cm2 AV (velocity ratio): 0.25 ILEANA(I,D): 0.85 cm2 ILEANA(V,D): 0.85 cm2 LV V1 max: 72.8 cm/sec SV(LVOT): 59.4 ml PA V2 max: 86.0 cm/sec LV V1 max P.1 mmHg PA V2 mean: 47.9 cm/sec LV V1 mean P.3 mmHg LV V1 mean: 54.0 cm/sec LV V1 VTI: 17.7 cm PI dec slope: 142.5 cm/sec2 ECHO/Echo Complete W/ Contrast Interpretation Summary Normal LV size. Left ventricular systolic function is normal. The left ventricular ejection fraction is 60 %. Stage 1 diastolic dysfunction. Mean aortic valve gradient 19 mmHg. Mild to moderate aortic stenosis. Moderate diffuse aortic valve thickening. Ordering Physician: Pierce Cummings Referring Physician: Rosie Rodriguez Performed By: Renetta Roger, HALI, RVT
== END | disposition home or self-care (01) ==
LOC: CVS 08:45
PROVIDERS: PCP Family Medicine; Referring Provider Psychiatry & Neurology Neurology; Visit Provider Psychiatry & Neurology Neurology
DX: R01.1 Cardiac murmur, unspecified (principal)
CPT/HCPCS: 93306; Q9957; A4216; C8929

== ENCOUNTER → 2024-06-28 | Outpatient (CLI) | payer MEDICARE, OTHER, SELFPAY ==
[2024-06-28 18:15] LABS: Cholesterol 135 mg/dL (<=200); High Density Lipoprotein 50 mg/dL; Low Density Lipoprotein Calc. 73 mg/dL; PSA,Total - Annual Screen 0.65 ng/mL (0.02-4.00); Triglycerides 59 mg/dL; Very Low Density Lipoprotein 12 mg/dL (5-40); cholesterol:hdl ratio screen 2.71
== END | disposition home or self-care (01) ==
LOC: MFPLAB 12:14
PROVIDERS: PCP Family Medicine; Referring Provider Family Medicine; Visit Provider Family Medicine
DX: I63.9 Cerebral infarction, unspecified (principal); Z12.5 Encounter for screening for malignant neoplasm of prostate
CPT/HCPCS: 36415; 80061; 84153; G0103

== ENCOUNTER → 2024-08-27 | Outpatient (CLI) | payer MEDICARE, OTHER, SELFPAY ==
--- NOTE | 2024-08-27 12:36 | RAD_ITS ---
PROCEDURE: CHEST PA AND LATERAL 08/27/2024 REASON FOR EXAM: SOB TECHNIQUE: Frontal and lateral views of the chest. COMPARISON: Two-view chest, 06/27/2022 FINDINGS: There is peribronchial consolidation extending into the lower lobe of the left lung. The lungs are otherwise clear. There are no pleural effusions. The heart size is normal. 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 The visualized upper abdominal bowel gas pattern is unremarkable. There are bilateral shoulder arthroplasties. RAD/Chest PA and Lateral IMPRESSION: Left lower lobe atelectasis or pneumonia. Other findings as noted. Reading Location: [id number]
[2024-08-27 15:58] LABS: ALB/GLOB Ratio 1.4 RATIO (0.9-2.4); AST(SGOT) 26 U/L (<=37); Alanine Aminotransfer ALT/SGPT 17 U/L (<=46); Albumin, Serum 4.1 g/dL (3.4-4.8); Alkaline Phosphatase 97 U/L (40-129); Anion Gap 12 (5-15); BUN 30 mg/dL (4-19); BUN/Creat Ratio 25.7 RATIO (10-20); Calcium,Total 9.3 mg/dL (7.6-11.0); Carbon Dioxide 21.7 mmol/L (21.0-32.0); Chloride 106 mmol/L (98-108); Creatinine, Serum 1.17 mg/dL (0.70-1.20); EST Glomerular Filtration Rate 65 (>60); Globulin 2.9 g/dL (2.2-4.2); Glucose 94 mg/dL (70-99); Protein, Total 6.9 g/dL (5.9-8.4); Sodium Level 141 mmol/L (133-145); Total Bilirubin 0.45 mg/dL (0.00-1.30); Vitamin D,25 Hydroxy 69.8 ng/mL (30-100)
== END | disposition home or self-care (01) ==
LOC: MTLAB 12:36
PROVIDERS: PCP Family Medicine; Referring Provider Family Medicine; Visit Provider Family Medicine
DX: I10 Essential (primary) hypertension (principal); E55.9 Vitamin D deficiency, unspecified; R06.02 Shortness of breath
CPT/HCPCS: 36415; 71046; 80053; 82306; 84443

== ENCOUNTER → 2024-09-24 | Outpatient (CLI) | payer MEDICARE, OTHER, SELFPAY ==
--- NOTE | 2024-09-24 07:52 | CT_ITS ---
PROCEDURE: CTA CHST, ABD, PEL W AND/OR WO 09/24/2024 REASON FOR EXAM: SOB TECHNIQUE: CTA CHST, ABD, PEL W AND/OR WO coronal and Sagittal reconstruction series were provided. One or more dose reduction techniques were used (e.g., Automated exposure control, adjustment of the mA and/or kV according to patient size, use of iterative reconstruction technique. CONTRAST: Isovue 300 VOLUME: 100 mL RADIATION DOSE SUMMARY: CTDlvol: 62 mGy DLP: 1847 mGycm COMPARISON: Chest x-ray 08/27/2024, abdominopelvic CT 07/02/2020 FINDINGS: Unremarkable base of neck and axilla. Thoracic spine degeneration. Normal esophagus. Upper limits of normal heart size. LVH. No aortic dissection. No pulmonary embolism. Basilar atelectasis. No consolidation, effusion, or pneumothorax. On the left, intrapulmonary lymph node. On the right, no suspicious lung nodules. Normal gallbladder. Upper abdominal solid organs show no acute findings. Atrophic left kidney. No hydronephrosis. Small bladder diverticulum. Mildly enlarged prostate. No retroperitoneal or pelvic adenopathy. No free air. Nondistended bowel. No acute large bowel findings. No signs of appendicitis. Small metallic foreign bodies in the right gluteal area, possible remote injury. Lumbar spine scoliosis and degeneration. CT/CTA Chst, Abd, Pel W and/or WO IMPRESSION: No acute chest abdomen or pelvic pathology. Reading Location: [place] [id number]
--- OUTSIDE RECORDS SUMMARY | 2024-09-24 08:14 | XMS RPT_ITS | CCD ---
Author Organization [facility] Inform ion [facility] Care Team Providers Care Gearman Name Role Phone Rosie Rodriguez Primary Care Provider RENATO MULLEN JR Referring Unav ailable ROSIE RODRIGUEZ Primary Care Unavailable RENATO MULLEN JR Admitting Unav ailable RENATO MULLEN JR Attending Unav ailable MasonBetty sanford Referring Unavailable Mason, Betty Attending Unavailable Mason, Chalon Primary Care Unavailable Mason, Chalon Primary Care Unavailable Jt Cummingsmond Referring Unavailable Jt Cummingsmond Attending Unavailable Oleghe OLS, Efewongbe Attending Unavailabl e Jolliff, Rosie S Primary Care Unavailable Oleghe OLS, Efewongbe Referring Unavailabl e Oleghe OLS, Efewongbe Attending Unavailabl e Jolliff, Rosie S Primary Care Unavailable Tickton ROLLWAY MAN, Laney Attending Unavailable Jolliff, Rosie S Primary Care Unavailable [place]ickton ROLLWAY MAN, Laney Attending Unavailable Jolliff, Rosie S Primary Care Unavailable [place]ickton ROLLWAY MAN, Laney Attending Unavailable Jolliff, Rosie S Primary Care Unavailable Emiliano Pierce Attending Unavailable Jolliff, Rosie S Primary Care Unavailable Jolliff, Rosie S Referring Unavailable Baddour, Pierce Attending Unavailable Jolliff, Rosie S Referring Unavailable Jolliff, Rosie S Primary Care Unavailable Oleghe, Efewongbe Attending Unavailable Jolliff, Rosie S Primary Care Unavailable Oleghe OLS, Efewongbe Referring Unavailabl e Oleghe OLS, Efewongbe Attending Unavailabl e Jolliff, Rosie S Primary Care Unavailable Oleghe OLS, Efewongbe Attending Unavailabl e Jolliff, Rosie S Primary Care Unavailable Jolliff, Rosie S Primary Care Unavailable Jolliff, Rosie S Referring Unavailable Jolliff, Rosie S Attending Unavailable Mason, Chalon Referring Unavailable Mason, Chalon Attending Unavailable Betty Cuevas Primary Care Unavailable Manuel Chua Attending UnavailRosie Light Primary Care Unavailable Fracisco García Referring Unavailable Rosie Rodriguez Primary Care Unavailable Fracisco García Attending Unavailable Medications Completed/Discontinued Medications Medication Drug Class(es) Dates Sig (Normalized) Sig (Original) aspirin 81 mg delayed release oral tablet (1 source) Platelet Aggregation Inhibitor, Nonsteroidal Anti-inflammatory Drug take 1 tablet by mouth once daily at bedtime aspirin, enteric coated (ASPIRIN, ENTERIC COATED) 81 mg EC tablet Take 81 mg by mouth daily at bedtime. WILL VERIFY WITH DR CABRERA PCP TAKES PREVENTATIVE 0 Active Comment on above: Take 81 mg by mouth daily at bedtime. WILL VERIFY WITH DR CABRERA PCP TAKES PREVENTATIVE cholecalciferol 0.05 mg oral capsule (1 source) Vitamin D take 2 capsules by mouth once daily in the morning Cholecalciferol, Vitamin D3, 50 mcg (2,000 unit) cap Take 2 capsules by mouth every morning. STOP 3 WEEKS PRIOR TO SURGERY 0 Active Comment on above: Take 2 capsules by m outh every morning. STOP 3 WEEKS PRIOR TO SURGERY hydroCHLOROthiazide 25 mg oral tablet (1 source) Thiazide Diuretic take 1 tablet by mouth once daily in the morning hydroCHLOROthiazide (HYDRODIURIL, ESIDRIX) 25 mg tablet Take 25 mg by mouth every morning. 0 Active Comment on above: Take 25 mg by mouth every morning. lamoTRIgine 200 mg oral tablet (1 source) Mood Stabilizer, Anti-epileptic Agent lamoTRIgine (LAMICTA L) 200 mg tablet Take 150 mg by mouth once daily. Takes for OCD BIPOLAR, DEPRESSION Take 1.5 tabs 0 Active Comment on above: Take 150 mg by mouth once daily. Takes for OCD BIPOLAR, DEPRESSION Take 1.5 tabs losartan potassium 50 mg oral tablet (1 source) Angiotensin 2 Receptor Estevan take 1 tablet by mouth once daily at bedtime losartan (COZAAR) 50 mg tablet Take 50 mg by mouth daily at bedtime. 0 Active Comment on above: Take 50 mg by mouth daily at bedtime. melatonin 10 mg oral capsule (1 source) melatonin 10 mg cap Take by mouth daily at bedtime. 0 Active Comment on above: Take by mouth daily at bedtime. 24 hr metoprolol succinate 100 mg extended release oral tablet (1 source) beta-Adrenergic Estevan take 100 mg by mouth once daily in the morning metoprolol succinate ER (TOPROL XL) 100 mg Take 100 mg by mouth every morning. 0 Active Comment on above: Take 100 mg by mouth every morning. QUEtiapine 200 mg oral tablet (1 source) Atypical Antipsychotic Start: 10-15-19 10 take 1 tablet by mouth once daily at bedtime quetiapine fumarate(SEROQUEL 200 MG TAB) Indications: Screen for colon cancer , Rectal bleeding Take 200 mg by mouth daily at bedtime. 0 0 10/14/2009 Active Comment on above: Take 200 mg by mouth daily at bedtime. rOPINIRole 0.5 mg oral tablet (1 source) Nonergot Dopamine Agonist take 0.25 mg by mouth once daily at bedtime rOPINIRole (REQUIP) 0.5 mg tablet Take 0.25 mg by mouth daily at bedtime. 0 Active Comment on above: Take 0.25 mg by mout h daily at bedtime. tamsulosin hydrochloride 0.4 mg oral capsule (1 source) alpha-Adrenergic Estevan Start: 07-16-19 10 take 1 capsule by mouth once daily at bedtime, then take 1 capsule by mouth every twenty-four hours tamsulosin hcl(FLOMAX 0.4 MG 24 HR CAP) Indications: Screen for colon cancer , Rectal bleeding Take 0.4 mg by mouth daily at bedtime. 0 07/15/2009 Active Comment on above: Take 0.4 mg by mouth daily at bedtime. Problems Active Problems Problem Classification Problem Date Documented Date Episodic/Chronic Acute cerebrovascular disease (1 source) Cerebral infarction, unspecified; Translations: [Cerebral infarction, unspecified] Onset: 07-03-2024 Chronic Cardiac dysrhythmias (1 source) Bradycardia, unspecified; Translations: [Bradycardia, unspecified] Onset: 09-03-2024 Episodic Complications of surgical procedures or medical care (2 sources) Hypoinsulinemia following procedure; Translations: [Postprocedural hypoinsulinemia] Onset: 05-06-2022 Chronic Essential hypertension (1 source) Essential (primary) hypertension; Translations: [Essential (primary) hypertension] Onset: 09-01-2024 Chronic Osteoarthritis (2 sources) Primary osteoarthritis, left shoulder; Translations: [Arthritis of left shoulder region] Onset: 05-24-2022 Chronic Other lower respiratory disease (1 source) Shortness of breath; Translations: [Shortness of breath] Onset: 09-13-2024 Episodic Past or Other Problems Problem Classification Problem Date Documented Da te Episodic/Chronic Spondylosis; intervertebral disc disorders; other back problems (1 source) Low back pain; Translations: [Lumbago] Onset: 09-30-2008 09-30-2008 Episodic Results Test Name Value Interpretation Reference Range Facility Re-Evaluation - PT (1)on Re-Evaluation - PT (1) [facility] [address] [place] [address]. [address] [place] [address] / REEVALUATION / MEDICARE RECERTIFICATION PHYSICAL THERAPY MR#: [id number] Acct: [id number] Name: ANGUS ESTEVES Rep #: [id number] : 1950 74 From: Abbe Moyer DPT Referring Dr.: Dr. Fracisco García MD Status:REG RCR Insurance: MEDICARE PART A B [employer] [facility] Re-Evaluation Intro: Dr. Fracisco García MD, It has been my pleasure to treat ANGUS ESTEVES over the last 27 visits for CVA with R sided weakness. Please see the progress note below for an update on the physical therapy plan of care! Subjective Subjective: Pt. Objective Objective/Function: TU.3 no AD previous: RLE DF 37.2#; knee: ext 59.8#, flexion 33.1#: hip: flex 28.2#, abd 43.3# LLE: ankle: DF 45.6#; knee: ext 54.3#, flexion 37.1#; hip: flex 34.0#, abd 39.8# current: RLE: ankle: DF46.8#, knee: ext 66.5#, flex 41.7#; hip flex44.8#, abd 49.2# LLE: ankle DF 69.5#, knee: ext 65.3#, flex 39.1#; hip: flex 55.0#, abd 60.2# GAIT: Pt. is ambulating well without LOB. Angus is doing significantly better. I am going to put his PT on hold for 2-3 weeks. He is going to try and do a gym program with his and granddaughter . Plan Plan Plan: PT on hold as he tries to complete HEP in gym independently with spouse and grand daughter. If I do not hear from him in the next few weeks I will DC back to physician. Balance/Gait/Functional tests Balance/Special Test Scores Functional Gait Assessment Score: 26 % Disability: 13.3400 Lower Extremity Functional Score: 61 TUG Test Time Seconds: 9.3 Tug Test: <10 sec.=free mobile 30 Second Chair Rise Test Seconds: 13 6 Minute Walk Test: 1579 normal is (1410- 1920) Goals Goals Goal 1:: LTG: pt. to be I with HEP. Goal Time Frame: 4-6 Weeks Goal Progress: Goal Met Goal 2:: LTG: pt. to complete TUG under 10sec without use of AD. Goal Time Frame: 4-6 Weeks Goal Progress: Goal Met Goal 3:: LTG: Pt. to have increased FGA to score of 23/30 indicating proper balance. Goal Time Frame: 4-6 Weeks Goal Progress: Goal Met Goal 4:: LTG: pt. to have symmetrical strength between BLEs. Goal Time Frame: 4-6 Weeks Goal Progress: Goal Met Goal 5:: NEW GOAL: Pt. to complete 6 MWT with distance of at least 1500' Goal Time Frame: 4-6 Weeks Goal Progress: Progressing Goal 6:: LTG: Pt. to complete 30sec sit to stand rep test with at least 15 reps. Goal Time Frame: 4-6 Weeks Goal Progress: Progressing Anticipated Interventions Anticipated Interventions Patient/Client Instruction: Educate patient on: Condition, Plan of Care, Risk Factors and Benefits of Fitness Program For the Purpose of:: To foster healthy habits, To improve decision making, To facilitate caregiver knowledge, To improve self management, To prevent re-injury and To improve ability to perform tasks related to life management Therapeutic Exercise to Include: Strength training, Power training, Endurance training, Balance training, Coordination, Flexibilty training and Gait and locomotor training For the Purpose of:: To decrease pain, To increase ROM, To improve nutrient delivery to tissue, To increase oxygenation perfusion, To improve muscle performance and motor function, To improve ability to perform ADL's, To improve gait and locomotor functions and To improve health of tissue Re-Evaluation Ending Re-evaluation ending: Please do not hesitate to contact me at [phone] by phone or if you have questions or concerns regarding this new plan of care! Sincerely, Abbe Middleton João, DPT 09/20/24 1126 CC: Dr. Rosie Rodriguez MD; Dr. Fracisco García MD CLS Signed For Medicare only, by signing this I certify the plan of care. Physicians Signature Date Normal [facility] Chest PA and Lateralon 08-27 Chest PA and Lateral [facility] [address] [place] [address] Chest PA and Lateral MR#: [id number] Acct: [id number] Name: ANGUS ESTEVES Rep #: [id number] : 1950 M 74 From: Blaine Barrow MD PCP: Dr. Betty Cuevas MD Status: REG CLI Study: Chest PA and Lateral Date of Exam: 08/27/24 Exam# [id number] Ordering Dr: Betty Cuevas MD PROCEDURE: CHEST PA AND LATERAL 08/27/2024 REASON FOR EXAM: SOB TECHNIQUE: Frontal and lateral views of the chest. COMPARISON: Two-view chest, 06/27/2022 FINDINGS: There is peribronchial consolidation extending into the lower lobe of the left lung. The lungs are otherwise clear. There are no pleural effusions. The heart size is normal. 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 The visualized upper abdominal bowel gas pattern is unremarkable. There are bilateral shoulder arthroplasties. RAD/Chest PA and Lateral IMPRESSION: Left lower lobe atelectasis or pneumonia. Other findings as noted. Reading Location: [facility] CC: Dr. Betty Cuevas MD Twist Tester: Signed Normal [facility] Comprehensive Metabolic Prof ilon 08-27-2024 Albumin [Mass/Vol] 4.1 g/dL Normal 3.4-4.8 [facility] Comment on above: Order Comment: Order Date: 08/27/24 Order Info: 0786-1 - CMP Order Info: 301-3 - TSH Performed By: #### L 500.4050, L501.9520 #### [facility] Laboratory [address] [place], [address] Albumin/Globulin [Mass ratio] 1.4 {ratio} Normal 0.9-2.4 [facility] Comment on above: Order Comment: Order Date: 08/27/24 Order Info: 0786-1 - CMP Order Info: 301-3 - TSH Performed By: #### L 500.4050, L501.9520 #### [facility] [address] [place], [address] ALK PHOS 97 U/L Normal 40-129 [facility] Comment on above: Order Comment: Order Date: 08/27/24 Order Info: 0786-1 - CMP Order Info: 30163 - TSH Performed By: #### L 500.4050, L501.9520 #### [facility] Laboratory [address] [place], [address] ALT [Catalytic activity/Vol] 17 U/L Normal <=46 [facility] Comment on above: Order Comment: Order Date: 08/27/24 Order Info: 0786-1 - CMP Order Info: 301-3 - TSH Performed By: #### L 500.4050, L501.9520 #### [facility] [address] [place], [address] AST [Catalytic activity/Vol] 26 U/L Normal <=37 [facility] Comment on above: Order Comment: Order Date: 08/27/24 Order Info: 0786-1 - CMP Order Info: 3016-3 - TSH Performed By: #### L 500.4050, L501.9520 #### [facility] Laboratory [address] [place], [address] Bilirubin [Mass/Vol] 0.45 mg/dL Normal 0.00-1.30 [facility] Comment on above: Order Comment: Order Date: 08/27/24 Order Info: 0786-1 - CMP Order Info: 301-3 - TSH Performed By: #### L 500.4050, L501.9520 #### [facility] [address] [place], [address] BUN/CRE 25.7 RATIO High 10-20 [facility] Comment on above: Order Comment: Order Date: 08/27/24 Order Info: 0786-1 - CMP Order Info: 3015-3 - TSH Performed By: #### L 500.4050, L501.9520 #### [facility] [address] [place], [address] Calcium [Mass/Vol] 9.3 mg/dL Normal 7.6-11.0 [facility] Comment on above: Order Comment: Order Date: 08/27/24 Order Info: 0786-1 - CMP Order Info: 3015-3 - TSH Performed By: #### L 500.4050, L501.9520 #### [facility] [address] [place], [address] Chloride [Moles/Vol] 106 mmol/L Normal 98-108 [facility] Comment on above: Order Comment: Order Date: 08/27/24 Order Info: 0786-1 - CMP Order Info: 3015-3 - TSH Performed By: #### L 500.4050, [id number] #### [facility] [address] [place], [address] CO2 [Moles/Vol] 21.7 mmol/L Normal 21.0-32.0 [facility] Comment on above: Order Comment: Order Date: 08/27/24 Order Info: 0786-1 - CMP Order Info: 3016-3 - TSH Performed By: #### L 500.4050, [id number] #### [facility] [address] [place], [address] Creatinine [Mass/Vol] 1.17 mg/dL Normal 0.70-1.20 [facility] Comment on above: Order Comment: Order Date: 08/27/24 Order Info: 0786-1 - CMP Order Info: 3016-3 - TSH Performed By: #### L 500.4050, [id number] #### [facility] [address] [place], [address] GAP 12 Normal 5-15 [facility] Comment on above: Order Comment: Order Date: 08/27/24 Order Info: 0786-1 - CMP Order Info: 3 - TSH Performed By: #### L 500.4050, L501.9520 #### [facility] [address] [place], [address] GFR/1.73 sq M.predicted among non-blacks MDRD (S/P/Bld) [Vol rate/Area] 65 mL/min/{1.73_m2} Normal >60 [facility] Comment on above: Order Comment: Order Date: 08/27/24 Order Info: 0786-1 - [facility] Order Info: 3 - TSH Result Comment: mL/m in/1.73m2 CKD-EPI Creatinine Equation (2020) Performed By: #### L 500.4050, L501.9520 #### [facility] [address] [place], [address] Globulin (S) [Mass/Vol] 2.9 g/dL Normal 2.2-4.2 [facility] Comment on above: Order Comment: Order Date: 08/27/24 Order Info: 0786-1 - CMP Order Info: 3016-3 - TSH Performed By: #### L 500.4050, [id number] #### [facility] [address] [place], [address] Glucose [Mass/Vol] 94 mg/dL Normal 70-99 [facility] Comment on above: Order Comment: Order Date: 08/27/24 Order Info: 0786-1 - CMP Order Info: 3015-3 - TSH Performed By: #### L 500.4050, L501.9520 #### [facility] [address] [place], [address] Potassium [Moles/Vol] 4.0 mmol/L Normal 3.3-5.1 [facility] Comment on above: Order Comment: Order Date: 08/27/24 Order Info: 0786-1 - CMP Order Info: 3015-3 - TSH Performed By: #### L 500.4050, [id number] #### [facility] [address] [place], [address] Sodium [Moles/Vol] 141 mmol/L Normal 133-145 [facility] Comment on above: Order Comment: Order Date: 08/27/24 Order Info: 0786-1 - CMP Order Info: 3015-3 - TSH Performed By: #### L 500.4050, L501.9520 #### [facility] [address] [place], [address] T PROT 6.9 g/dL Normal 5.9-8.4 [facility] Comment on above: Order Comment: Order Date: 08/27/24 Order Info: 0786-1 - CMP Order Info: 301-3 - TSH Performed By: #### L 500.4050, [id number] #### [facility] [address] [place], [address] Urea nitrogen [Mass/Vol] 30 mg/dL High 4-19 [facility] Comment on above: Order Comment: Order Date: 08/27/24 Order Info: 0786-1 - CMP Order Info: 301-3 - TSH Performed By: #### L 500.4050, L501.9520 #### [facility] [address] [place], [address] Thyroid Stim Hormone (TSH)on 08-27-2024 TSH 1.210 uIU/mL Normal 0.300-4.200 [facility] Comment on above: Order Comment: Order Date: 08/27/24 Order Info: 0786-1 - [facility] Order Info: 3016-3 - TSH Performed By: #### L 500.4050, L501.9520 #### [facility] [address] [place], [address] Vitamin D,25 Hydroxyon 08-27 Vitamin D 25-OH 69.8 ng/mL Normal 30-100 [facility] Comment on above: Order Comment: Order Date: 08/27/24 Order Info: 0786-1 - [facility] Order Info: 3016-3 - TSH Result Comment: Pilar min D Status Deficiency: <20 ng/mL (50nmol/L) Insufficiency: 20-30 ng/mL (50-75 nmol/L) Sufficiency: 30-100 ng/mL (75-250 nmol/L) Toxicity: >100 ng/mL (>250 nmol/L) Performed By: #### L 506.1001 #### [facility] [address] [place], [place], [address] Re-Evaluation - PT (1)on Re-Evaluation - PT (1) [facility] [address] [place] [address] [address] [place] [address] / REEVALUATION / MEDICARE RECERTIFICATION PHYSICAL THERAPY MR#: [id number] Acct: [id number] Name: ANGUS ESTEVES Rep #: [id number] : 1950 74 From: Abbe Moyer DPT Referring Dr.: Dr. Fracisco García MD Status:REG RCR Insurance: MEDICARE PART A B [employer] [facility] Re-Evaluation Intro: Dr. Fracisco García MD, It has been my pleasure to treat ANGUS ESTEVES over the last 20 visits for CVA with R sided weakness. Please see the progress note below for an update on the physical therapy plan of care! Subjective Subjective: Pt. reports falling the other day. He was walking over cinder blocks and caught his heel on one and fell. Pt. reports being okay, a little sore. Pt. has otherwise been doing well. He did the nustep to warm up prior to PT this date. He still has the greatest c/o is with his right hand. Gripping and using for dressing and eating is still difficult. Objective Objective/Function: MMT: previous: RLE: ankle: DF 28.4#; knee: ext 36.4#, flex 28.7#; hip flex: 24.8#, abd 27.5# LLE: ankle DF: 29.9#; knee: ext 40.7#, flex 37.2#; hip: flex 32.1#, abd 29.9# Current: RLE DF 37.2#; knee: ext 59.8#, flexion 33.1#: hip: flex 28.2#, abd 43.3# LLE: ankle: DF 45.6#; knee: ext 54.3#, flexion 37.1#; hip: flex 34.0#, abd 39.8# Pt. has improved on most strengthening. He is close to symmetrical on several, the greatest difference is with knee extension. Stairs: reciprocal, no HR to ascend. 1 HR to descend. GAIT: pt. is doing better, but is still having some issues with directional changes, but corrects balance well. No signs of foot drop or catching his foot today. I would like him to have a slightly better TUG time, walk a little bit further with 6 Min walk test and progress to more gym exercises. He is progressing towards his goals, goals as still appropriate at this point in time and he is progressing towards these goals as well. Plan Plan Plan: Progress gait endurance, progress TUG time and progress gym exercises to independent program. Work on both LE and UE progression. Progress to I with this program. Cont. with SLS balance on either LE and dynamic balance progression. Balance/Gait/Functional tests Balance/Special Test Scores Functional Gait Assessment Score: 22 % Disability: 26.6700 Lower Extremity Functional Score: 50 TUG Test Time Seconds: 12.4 Tug Test: <20 sec.=mostly independent 30 Second Chair Rise Test Seconds: 10 6 Minute Walk Test: 1315 no AD Goals Goals Goal 1:: LTG: pt. to be I with HEP. Goal Time Frame: 4-6 Weeks Goal Progress: Progressing Goal 2:: LTG: pt. to complete TUG under 10sec without use of AD. Goal Time Frame: 4-6 Weeks Goal Progress: Progressing Goal 3:: LTG: Pt. to have increased FGA to score of 23/30 indicating proper balance. Goal Time Frame: 4-6 Weeks Goal Progress: Progressing Goal 4:: LTG: pt. to have symmetrical strength between BLEs. Goal Time Frame: 4-6 Weeks Goal Progress: Progressing Goal 5:: NEW GOAL: Pt. to complete 6 MWT with distance of at least 1500' Goal Time Frame: 4-6 Weeks Goal Progress: Progressing Goal 6:: LTG: Pt. to complete 30sec sit to stand rep test with at least 15 reps. Goal Time Frame: 4-6 Weeks Goal Progress: Progressing Anticipated Interventions Anticipated Interventions Patient/Client Instruction: Educate patient on: Condition, Plan of Care, Risk Factors and Benefits of Fitness Program For the Purpose of:: To foster healthy habits, To improve decision making, To facilitate caregiver knowledge, To improve self management, To prevent re-injury and To improve ability to perform tasks related to life management Therapeutic Exercise to Include: Strength training, Power training, Endurance training, Balance training, Coordination, Flexibilty training and Gait and locomotor training For the Purpose of:: To decrease pain, To increase ROM, To improve nutrient delivery to tissue, To increase oxygenation perfusion, To improve muscle performance and motor function, To improve ability to perform ADL's, To improve gait and locomotor functions and To improve health of tissue Re-Evaluation Ending Re-evaluation ending: Please do not hesitate to contact me at [phone] by phone or if you have questions or concerns regarding this new plan of care! Sincerely, Abbe Moyer, DPT 08/23/24 1017 CC: Dr. Rosie Rodriguez MD; Dr. Fracisco García MD CLS Signed For Medicare only, by signing this I certify the plan of care. Physicians Signature Date Normal [facility] Neurology Visit Reporton Neurology Visit Report [facility] [address], [address] [place] [address] OFFICE VISIT Date of Service: 08/22/24 MR#: [id number] Acct: [id number] Name: ANGUS ESTEVES Rep #: [id number] : 1950 Provider: Dr. Pierce doty MD Age/Sex: 74/M Location: [facility] Status: Signed HPI HPI Chief Complaint: Details: Interim History: Angus returns for follow-up visit. He has a history of hypertension, hyperlipidemia, right renal atrophy, obstructive sleep apnea (on CPAP), depression, anxiety and bipolar disorder. He is accompanied by his and daughter. He has been experiencing a tremor in the hands (right greater than left) since 2019. His tremor gradually worsened over time however his tremor has diminished following his stroke in March 2024. The tremor was worse with activities such as writing. Overall, he has not had significant functional impairment due to his tremor. Since 2022, he has exhibited some slowness of his arm movement. His gait has slowed since 2021 and his gait had a shuffling and stooped pattern. His voice has become hypophonic since 2021. He has been under the care of a psychiatrist, Dr. Lowery, for his bipolar disorder, depression and anxiety. He has been taking quetiapine for years. His dose of quetiapine was reduced to 25mg nightly. He has been taking lamotrigine for years. He also takes fluoxetine. An attempt to discontinue quetiapine resulted in worsening of his mood disorder. He previously took quetiapine 300 mg nightly. Carbidopa/levodopa was initiated in 2022 and he is tolerating this well. Following initiation of carbidopa and levodopa and reduction of his dose of quetiapine, he had some improvement of his parkinsonian tremor and gait. His gait has been more shuffling within recent weeks. He has had some memory difficulty since around 2019. He has a tendency to forget conversations and to repeat conversations. He has difficulty recalling recent information such as telephone nu mbers. Overall, he has remained independent in his daily activities at home. He has not become lost in familiar surroundings. He has been able to drive without difficulty. No change in his cognitive status over recent months is reported. He takes ropinirole nightly for periodic leg movement of sleep and this has been of benefit. He has exhibited some drooling and decreased facial expressiveness. Mini-Mental status exam score was 26/30 in November 2022. His carotid ultrasound (July 2023) did not reveal hemodynamically significant stenosis. His cardiac echo (August 2023) revealed mild to moderate aortic stenosis. 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 His deficits resolved except for mild right sided facial weakness and mild right upper extremity weakness and diplopia on leftward gaze. He has had physical therapy. He was treated with a thrombolytic at the time of initiation presentation of his stroke and was subsequently placed on aspirin and Eliquis. Clopidogrel was not initiated due to concern that he would be a nonresponder to this medication (details regarding this determination are presently not available). He denies having atrial fibrillation. His gait has been more shuffling within recent weeks. He has insomnia. Melatonin has not been of significant benefit. Physical Exam: Neuro: The patient is awake; he is slightly bradyphrenic; motor strength is 5/5 in the abductor pollicis brevis bilaterally, first dorsal interosseus bilaterally, quadriceps bilaterally, foot dorsiflexors bilaterally, and left biceps, and 5-/5 in the right biceps; he exhibits a right facial palsy; he exhibits right hand dysdiadochokinesia; he reports having diplopia when he looks to the left speech is mildly hypophonic; no rigidity is noted in the wrists; gait is slow; armswing is diminished bilaterally; EOMI Neck: Bilateral bruits versus transmitted heart sounds (on examination in 2023, a left carotid bruit was auscultated) Heart: Regular rhythm and rate; a cardiac murmur is noted Supplemental Info Head CT (06/28/2018): FINDINGS: Normal soft tissue structures. Normal calvarium. There is asymmetry of the ventricles consistent with an anatomic variant. Normal white matter tracts of the cerebral hemispheres. Normal basal ganglia and thalami. Normal brainstem. Normal cerebellum. There is no intracranial hemorrhage. There are no findings of an acute ischemic infarction. Atherosclerotic calcification of the cavernous portions of the internal carotid arteries as well as the vertebral arteries bilaterally. Mucosal thickening of the maxillary sinuses bilaterally slightly worse on the left side. Partial opacification of the ethmoid sinuses. Mucosal thickening of the sphenoid sinus. IMPRESSION: Chronic involutional tubbs (more content not included)... Normal [facility] SP/HP.SP.Marti 08-07-2024 SP/HP.SP.EV [facility] Speech Pathology [facility] [address] [place] [address] / REHABILITATION SERVICES INITIAL EVALUATION MR#: [id number] Acct: [id number] Name: ANGUS ESTEVES Rep #: [id number] : 1950 74 From: Jennifer Hernandez Referring Dr.: Dr. Fracisco García MD Status: RE G RCR Insurance: MEDICARE PART A B Donuts Visit History Visit Info Date of Eval: 08/07/24 Today is Visit #: 1 Special Agent: AYLA History Attending Doctor: Referring Doctor: Reason for Referral: CVA. RX HERE Medical Diagnosis: Stroke Date of Onset of Diagnosis: 04-13-2024 Previous speech therapy: Yes Results: [facility] and [facility]; Advanced from NPO/NG x1 week then passed MBSS in acute. Transitioned from pureed foods and thickened liquids to full regular diet and thin liquids prior to return to [place] around 05/13/24. Somewhat addressed vocal intensity and quality with sustained phonation. Other Relevant Medical History/Diagnoses/Surge ry: Left CVA with right hemiparesis, dysphagia, dysphonia, depression Medications related to this diagnosis: See EMR Smoking Status: Never smoker Diagnosis Diagnosis: CVA dysphagia, dysphonia Pain Is pain an issue with your current prescribed condition?: No Personal Preferred language: Sami Patient Allergies Allergies Allergies: Allergies No Known Allergies Allergy (Verified 07/18/23 15:05) Subjective Dysphagia Symptoms Reported Symptoms/Problems with: Drooling, Coughing and Difficulty Swallowing Liquids Current Diet Solids Current Diet: Regular Current Diet Liquids Current Liquids: Thin Hawkins free water Protocol: No Comments Comments: -: Patient does not use straws as a personal preference. Objective Dysphagia Administered by Administered by: Self Thin Liquids Administred via: Cup Oral Transit: WNL Bolus clearance: significant clearance/minimal residue Gagging: No Cough: immediate and throat clear Pharyngeal phase: suspect pharyngeal deficits Patient Report: Coughing with thin water via cup with large volume successive sips only. Cough immediate and strong. Right labial flaccidity measures 12mm via labial goniometer, results in right anterior loss of liquid bolus 3/6 trials. Patient endorses drooling with neck in flexion. Pureed Administered via: Spoon Oral Preparation: lip or tongue seal bolus escape Oral Transit: WNL Bolus clearance: significant clearance/minimal residue Gagging: No Cough: none observed/unable to assess Pharyngeal phase: immediate laryngeal elevation Comments: Right buccal residue 2/5 trials. Clears with minimal verbal cues for subsequent dry, effortful swallow. Regular Oral Preparation: WNL Oral Transit: Delay > 1 seconds Bolus clearance: significant clearance/minimal residue Gagging: No Cough: immediate and throat clear Pharyngeal phase: suspect pharyngeal deficits Comments: Bolus prep and manipulation WFL with william cracker 6/. Minimal lingual residue clears with liquid wash, then results in immediate reflexive throat clear 2/6, with patient reporting sensation of a crumb trying to go down the wrong way. Impact Impact on Safety Functioning: Risk for Aspiration Recommendations Modified Barium Swallow/Cookie Swallow Recommended: Yes Swallowing Treatment: Yes Diet Texture Recommendations Solids: Regular (Level 7) Liquids: Thin (Level 0) Other liquids: Thin Hawkins free water Protocol: No Safety Saftey Precautions/Swallowing Recommendations (Check all that Apply): Small Sips Bites when Eating, No Straw, Multiple Swallows, Alternate Liquids Solids and Other (Specify Below) Other: Upright position for all intake, exaggerated labial seal, effortful swallow Results Swallowing Within Normal Limits: No Swallowing Diagnosis: Oropharyngeal Phase Dysphagia (R13.12) Severity: Mild Reference: Neuro-QoL instrument Radiation Oncology Patient Plan Plan Plan: Patient self-referred to outpatient speech therapy services following CVA (03/2024) due exacerbation of dysphagia and dysphonia. Patient and spouse report increased coughing with liquids, and worsening of vocal quality. HR ANALYST instruct spouse per scheduling ENT consult for endoscopy, as required prior to initiating treatment, and patient is established patient of local ENT. Patient presents with mild oropharyngeal dysphagia requiring skilled ST 1x/wk x 16 weeks to address deficits in functional swallow via remediation and compensation. Patient to complete MBSS for assessment of pharyngeal integrity. HR ANALYST to obtain order. Recommendations Treatment Warranted: Yes Treatment Warranted: Dysphagia Progress Prognosis: Excellent Frequency Frequency: 1x/Week Duration: 4 Months Visits in this POC: 16 (more content not included)... Normal [facility] Re-Evaluation - PT (1)on Re-Evaluation - PT (1) [facility] Physical Therapy [facility] [address] [place] [address] / REEVALUATION / MEDICARE RECERTIFICATION PHYSICAL THERAPY MR#: [id number] Acct: [id number] Name: ANGUS ESTEVES Rep #: [id number] : 1950 73 From: Abbe Moyer DPT Referring Dr.: Dr. Fracisco García MD Status:REG RCR Insurance: MEDICARE PART A B [facility] Re-Evaluation Intro: Dr. Fracisco García MD, It has been my pleasure to treat ANGUS ESTEVES over the last 15 visits for CVA with R sided weakness. Please see the progress note below for an update on the physical therapy plan of care! Subjective Subjective: Pt. reports overall doing better. Pt. reports being 20% better overall. He feels like he might have regressed a bit with his R shoulder. Objective Objective/Function: TU.4 without use of AD. Pt. has greatest difficulty with directional changes. FGA 6 MWT : 1238 feet. MMT: RLE: ankle: DF 28.4#; knee: ext 36.4#, flex 28.7#; hip flex: 24.8#, abd 27.5# LLE: ankle DF: 29.9#; knee: ext 40.7#, flex 37.2#; hip: flex 32.1#, abd 29.9# 30sec sit to stand rep test 10 without use of UEs GAIT: Pt. ambulates with decreased bilateral step length. He also has he fatigues has decreased controlled eccentric DF. STAIRS: Pt. is able to negotiate with out HR with reciprocal pattern. Pt. does have some difficulty with eccentric lowering. Plan Plan Plan: Cont. to work on BLE strengthening, dynamic balance and multiple surfaces, Core strengthening. Add in SLS balance/control gait mechanics especially as he fatigues. Balance/Gait/Functional tests Balance/Special Test Scores Functional Gait Assessment Score: 22 % Disability: 26.6700 Lower Extremity Functional Score: 48 TUG Test Time Seconds: 12.4 Tug Test: <20 sec.=mostly independent 30 Second Chair Rise Test Seconds: 10 6 Minute Walk Test: 1238 feet Goals Goals Goal 1:: LTG: pt. to be I with HEP. Goal Time Frame: 4-6 Weeks Goal Progress: Progressing Goal 2:: LTG: pt. to complete TUG under 10sec without use of AD. Goal Time Frame: 4-6 Weeks Goal Progress: Progressing Goal 3:: LTG: Pt. to have increased FGA to score of 23/30 indicating proper balance. Goal Time Frame: 4-6 Weeks Goal Progress: Progressing Goal 4:: LTG: pt. to have symmetrical strength between BLEs. Goal Time Frame: 4-6 Weeks Goal Progress: Progressing Goal 5:: NEW GOAL: Pt. to complete 6 MWT with distance of at least 1500' Goal Time Frame: 4-6 Weeks Goal Progress: Progressing Goal 6:: LTG: Pt. to complete 30sec sit to stand rep test with at least 15 reps. Goal Time Frame: 4-6 Weeks Goal Progress: Progressing Anticipated Interventions Anticipated Interventions Patient/Client Instruction: Educate patient on: Condition, Plan of Care, Risk Factors and Benefits of Fitness Program For the Purpose of:: To foster healthy habits, To improve decision making, To facilitate caregiver knowledge, To improve self management, To prevent re-injury and To improve ability to perform tasks related to life management Therapeutic Exercise to Include: Strength training, Power training, Endurance training, Balance training, Coordination, Flexibilty training and Gait and locomotor training For the Purpose of:: To decrease pain, To increase ROM, To improve nutrient delivery to tissue, To increase oxygenation perfusion, To improve muscle performance and motor function, To improve ability to perform ADL's, To improve gait and locomotor functions and To improve health of tissue Re-Evaluation Ending Re-evaluation ending: Please do not hesitate to contact me at [phone] by phone or if you have questions or concerns regarding this new plan of care! Sincerely, Abbe Moyer, DPT 07/26/24 1109 CC: Dr. Rosie Rodriguez MD; Dr. Fracisco García MD CLS Signed For Medicare only, by signing this I certify the plan of care. Physicians Signature Date Normal [facility] Re-Evalution OTon 07-17-2024 Re-Evalution OT [facility] Occupational Therapy [facility] [address] [place] [address] / REEVALUATION / MEDICARE RECERTIFICATION OCCUPATIONAL THERAPY MR#: [id number] Acct: [id number] Name: ANGUS ESTEVES Rep #: [id number] : 1950 73 From: Vira Presley OTDoris/Emi T Referring Dr.: Dr. Fracisco García MD Status: RE G RCR Insurance: MEDICARE PART A B Eval Date: [facility] Re-Evaluation Intro: Dr. Fracisco García MD, It has been my pleasure to treat ANGUS ESTEVES over the last 11 visits for CVA. Please see the progress note below for an update on the occupational therapy plan of care! Subjective Subjective: pt arrives to session- states he is doing ok- feels his FMS are still behind and continues to say feeding himself continues to be a problem. Objective Objective/Function: fet2 peak force testing shoulder flexion 10.9# increase from 9# biceps 24# increase from 14# triceps 20 an increase from 12# right traffic chief strength 55# a increase from 45# right lateral pinch 14# increase from 12# right tripod pinch 10# same as eval 9-hole peg test 49.10 a decrease from 49.28 sec. pt has made gains with strength of biceps/triceps but continues to struggle with shoulder strength and traffic chief/pinch strength. Plan Plan Frequency: 2-3x /Week Duration: 4 Weeks Visits in this POC: (Insurance-$2410) 2-3x week for 4 weeks Plan: Continue POC:will increase his sessions to 60 min 2-3x week for 4 weeks Goals Goals Patient Goals: Regain Mobility, Regain Strength, Improve Fine Motor Skills, Use Hand/Wrist/Arm Normally Again, Be More Independent in ADLS, Resume Former Household Responsibilities (Cooking,Cleaning,Yard, etc.) and Resume Hobbies Goal:: Pt will demo a increase in fit 2 peak by 10# to increase pts ind. with ADLs by d/c pt will demo a increase in right traffic chief strength to 65# or greater to increase pts ind. with ADL and IADLs by d.c (progressing) Goal:: pt will demo a increase in right shoulder flexion by 30* to increase pts ind. with ADLs and IADLs by d.c Goal:: pt will demo the ability to write 5 sentences with good legibility by d.c pt will demo the ability to manipulate 10 coins from finger- palm palm to finger tips without dropping coins to increase pts ability to manipulate coins by d/c. pt will demo the ability to tie shoes IND by dc pt will demo a decrease in 9-hole peg testing by 15 sec. or greater to indicate increase in FMS by d/c Goal:: Pt will demo the ability to simulate using feeding utensils with increased fluid motion to not spill food by d.c. Anticipated Interventions Anticipated Interventions Anticipated Interventions: A/AAROM/PROM, Strengthening, Fine Motor Coord/Morgan and Neuro Reeducation Re-Evaluation Ending Re-evaluation ending: Please do not hesitate to contact me at [phone] by phone or if you have questions or concerns regarding this new plan of care! Sincerely, Vira Presley, CHRISTIANR/L, CHT 07/17/24 1024 CC: Dr. Rosie Rodriguez MD; Dr. Fracisco García MD MK Signed For Medicare only, by signing this I certify the plan of care. Physicians Signature Date Normal [facility] Lipid Profileon 06-28-2024 CHOL:HDL 2.71 Normal [facility] Comment on above: Order Comment: Order Date: 08/29/23 Order Info: 2857-1 - PSA Performed By: #### L 500.4100 #### [facility] Laboratory [address] [place], [address] Cholesterol [Mass/Vol] 135 mg/dL Normal <=200 [facility] Comment on above: Order Comment: Order Date: 08/29/23 Order Info: 2857- - PSA Result Comment: Chol esterol level, Desirable <200 mg/dL Borderline high cholesterol 200-239 mg/dL High cholesterol >=240 mg/dL Recommendations of the NCEP Adult Treatment Panel for the following risk-cutoff thresholds for the [place] population. Performed By: #### L 500.4100 #### [facility] Laboratory [address] [place], [address] Cholesterol in HDL [Mass/Vol] 50 mg/dL Normal [facility] Comment on above: Order Comment: Order Date: 08/29/23 Order Info: 2857- - PSA Result Comment: Alesia onal Cholesterol Education Program (NCEP) guidelines: <40 mg/dL: Low HDL-cholesterol (major risk factor for CHD) >= 60 mg/dL: High HDL-cholesterol (negative risk factor for CHD) HDL-cholesterol is affected by a number of factors, e.g. smoking, exercise, hormones, sex and age. Performed By: #### L 500.4100 #### [facility] [address] [place], [address] Cholesterol in LDL [Mass/Vol] 73 mg/dL Normal [facility] Comment on above: Order Comment: Order Date: 08/29/23 Order Info: 2857- - PSA Result Comment: Bord gpuxsp=473-809 mg/dL Higher Izor=928 mg/dL or greater Performed By: #### L 500.4100 #### [facility] [address] [place], [address] Cholesterol in VLDL [Mass/Vol] 12 mg/dL Normal 5-40 [facility] Comment on above: Order Comment: Order Date: 08/29/23 Order Info: 2857-1 - PSA Performed By: #### L 500.4100 #### [facility] Laboratory [address] [place], [place], [address] Triglyceride [Mass/Vol] 59 mg/dL Normal [facility] Comment on above: Order Comment: Order Date: 08/29/23 Order Info: 2857-1 - PSA Result Comment: The drugs N-Acetylcysteine and Metamizole may falsely depress this assay. Normal range: <150 mg/dL Borderline High: 150-199 mg/dL High: 200-499 mg/dL Very High: >500 mg/dL Performed By: #### L 500.4100 #### [facility] Laboratory [address] [place], [address] PSA,Total - Annual Screenon 06-28-2024 PSA,TOT SCREEN 0.65 ng/mL Normal 0.02-4.00 [facility] Comment on above: Order Comment: Order Date: 08/29/23 Order Info: 2857-1 - PSA Result Comment: This test was performed using the [employer] tPSA method. Measured values of a patient??sample can vary depending on the testing procedure used. PSA values determined on patient samples by different testing procedures cannot be used interchangeably. If there is a change in PSA assays while monitoring therapy, sequential testing should be performed to confirm baseline values. Performed By: #### L 501.9910 #### [facility] Laboratory [address] [place], [address] Inital Evaluation (1) - PTon 06-26-2024 Inital Evaluation (1) - PT [facility] Physical Therapy [facility] [place] [address] / REHABILITATION SERVICES INITIAL EVALUATION MR#: [id number] Acct: [id number] Name: ANGUS ESTEVES Rep #: [id number] : 1950 73 From: Abbe Moyer DPT Referring Dr.: Dr. Fracisco García MD Status: RE G RCR Insurance: MEDICARE PART A B [facility] Patient's Visit Information Visit Information Visit Information: ANGUS ESTEVES is a 73 year old M referred to Physical Therapy by Dr. Fracisco García MD with a diagnosis of CVA with R sided weakness. Date of Evaluation: 06/25/24 Physical Therapist: Abbe Moyer DPT Visit Plan Frequency: 3x /Week Duration: 6 Weeks Plan: 1) SL balance on RLE, dynamic balance on multiple surfaces 2) functional strengthening 3) progressive walking program 4) progress to gym strengthening in order to progress to this once done with PT. Subjective Subjective: Pt. is here today for his initial evaluation with diagnosis of CVA. Pt. was in [place] had a CVA with R sided weakness. Pt. reports coming back home this past weekend after having a stay at local SNF. Pt. reports having no tingling, but occasional numbness in his R leg. Pt. is now walking without AD. Pt. had marked R sided weakness, but has improved. He still reports some weakness, but more so in his hand than his leg. Pt. repots being able to complete most activities at home. He is not back to driving, but has started light progressive walking to mailbox. 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 He does have a history of B TSA limited end range B shoulder ROM and some intermittently low back pain. Objective Objective: POSTURE: fairly normal, normal SARAH in stance. PALPATION: Pt. has no pain with palpation of BLEs. No marked edema noted. NEURO: Pt. has slight dulled sensation on R LE. Pt. has normal DTR of BLEs. Pt. is able to rise on heels and toes without issues. ROM: trunk flexion min loss NE, extension min loss NE, SB min loss NE, rotation nil loss NE bilt. Pt. has very tight B HS and hip flexors. Slight tightness in B calves. MMT: PT. has 5/5 symmetrical strength, except hip flexion RLE 17#, LLE 32.9#. GAIT: Pt. has decrease bilateral arm swing and decreased step length. No LOB noted. Pt. tends to walk in guarded posture. Balance/Special Test Scores Functional Gait Assessment Score: 17 % Disability: 43.3400 Lower Extremity Functional Score: 48 TUG Test Time Seconds: 13.5 30 Second Chair Rise Test Seconds: 11 Goals Goal 1:: LTG: pt. to be I with HEP. Goal Time Frame: 4-6 Weeks Goal 2:: LTG: pt. to complete TUG under 10sec without use of AD. Goal Time Frame: 4-6 Weeks Goal 3:: LTG: Pt. to have increased FGA to score of 23/30 indicating proper balance. Goal Time Frame: 4-6 Weeks Goal 4:: LTG: pt. to have symmetrical strength between BLEs. Goal Time Frame: 4-6 Weeks Goal 5:: LTG: Pt. to complete 6 MWT with distance of at least 1000' Goal Time Frame: 4-6 Weeks Rehabilitation Potential Physical Therapy Diagnosis: Pt. has signs and symptoms consistent with CVA with R sided effect. He has progressed well, but still has some weakness, difficulty with gait and balance. Rehabilitation Potential: Excellent Anticipated Interventions Patient/Client Instruction: Educate patient on: Condition, Plan of Care, Risk Factors and Benefits of Fitness Program For the Purpose of:: To foster healthy habits, To improve decision making, To facilitate caregiver knowledge, To improve self management, To prevent re-injury and To improve ability to perform tasks related to life management Therapeutic Exercise to Include: Strength training, Power training, Endurance training, Balance training, Coordination, Flexibilty training and Gait and locomotor training For the Purpose of:: To decrease pain, To increase ROM, To improve nutrient delivery to tissue, To increase oxygenation perfusion, To improve muscle performance and motor function, To improve ability to perform ADL's, To improve gait and locomotor functions and To improve health of tissue Text: Thank you for the opportunity to evaluate your patient. For Medicare and Medicare HMO plans, please review the plan of care and approve it. It will need to be FAXED BACK to us at [phone] for Medicare purposes. For Medicare only, by signing this I certify the plan of care. Please let me know if there are questions or concerns regarding this plan of care. Physician Signature: Date: 06/26/24 1121 CC: Dr. Rosie Rodriguez MD; Dr. Fracisco García MD CLS Signed Normal [facility] OT General Evaluationon OT General Evaluation [facility] Occupational Therapy [facility] [address] [place] [address] / REHABILITATION SERVICES INITIAL EVALUATION MR#: [id number] Acct: [id number] Name: ANGUS ESTEVES Rep #: [id number] : 1950 73 From: Vira MEJIA/TABITHA Middleton Referring Dr.: Dr. Fracisco García MD Status: RE G R Insurance: MEDICARE PART A B Eval Date: [facility] Patient's Visit Information Visit Information Visit Information: ANGUS ESTEVES is a 73 year old M, referred to Occupational Therapy by Dr. Fracisco García MD, with a diagnosis of CVA. Date of Evaluation: 06/25/24 Occupational Therapist: ROBERTO Damon/Emi, CHT Subjective Subjective: This 73 year old male was seen for OT eval with dx of CVA. pt arrives with following PT evaluation. pts states while vacationing in [place] pt suffered a CVA about 10 weeks ago. Pt was tsf to [place] to [facility] to undergo rehab. Pt just released on Monday06/21/24. pts states prior to leaving for [place] pt was working with a interpersonal communications professor to improve his physical health. 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 pt was IND with all ADLs and IADLs and driving prior to his CVA. pt states he would like to get his right UE strength back to be able to dress/ eat and write more at his PLOF. ADLs Comments: pt lives with in 1 story home with 2nd story but does not go up there. pt has shower chair pt states dressing is ok - slower but able to perform pt states slower with grooming and now uses electric razer- right hand slow motion and feeling of being numb ROM Shoulder: right 100 left 150 Elbow: right/left WNL Forearm: right supination 40* left WNL Strength Shoulder: flexion right 9# left 13# Elbow: biceps 14# left 21# triceps R 12# left 24# Supervisor Cabinetmaker: right 45# left 75# Lateral Pinch: right 12# left 20# Tripod Pinch: right 10# left 18# Strength Comments: pt demo with right side weakness limiting pts functional ADLS Sensation Thumb: right/left 2.83 interpretation Normal sensation Index: right/left 2.83 interpretation Normal sensation Middle: right/left 2.83 interpretation Normal sensation Ring: right/left 2.83 interpretation Normal sensation Little: right/left 2.83 interpretation Normal sensation Nine Hole Peg Right: 49.28 sec. Left: 28.00 sec. In-Hand Manipulation Finger to Palm Translation: Severe - Right and Normal - Left Palm to Finger Translation: Severe - Right and Normal - Left Comments: pt demo with compromised FMS limiting writing Quick DASH-Disab of Arm,Shoulder Hand Quick DASH Score: 72.7250 Goals Goal:: Pt will demo a increase in fit 2 peak by 10# to increase pts ind. with ADLs by d/c pt will demo a increase in right traffic chief strength to 65# or greater to increase pts ind. with ADL and IADLs by d.c Goal:: pt will demo a increase in right shoulder flexion by 30* to increase pts ind. with ADLs and IADLs by d.c Goal:: pt will demo the ability to write 5 sentences with good legibility by d.c pt will demo the ability to manipulate 10 coins from finger- palm palm to finger tips without dropping coins to increase pts ability to manipulate coins by d/c. pt will demo the ability to tie shoes IND by dc pt will demo a decrease in 9-hole peg testing by 15 sec. or greater to indicate increase in FMS by d/c Rehabilitation General Assessment: pt demo with a decline in functional performance of ADLs, limited fine motor skills limiting pts ind. with self feeding/ writing and shaving. Pt weakness and slow motor processing has limited pt with ADLs and IADLs. pt would benefit from further skilled OT services 2- 3x week for 8 weeks to return pt to his PLOF. pt and pts demo understanding and agree to POC. Rehabilitation Potential: Good Anticipated Interventions Anticipated Interventions: A/AAROM/PROM, Strengthening, Fine Motor Coord/Morgan and Neuro Reeducation Visit Plan Frequency: 2-3x /Week Duration: 4 Weeks TEXT: Thank you for the opportunity to evaluate your patient. For Medicare and Medicare HMO plans, please review the plan of care and approve it. It will need to be FAXED BACK to us at [phone] for Medicare purposes. Please let me know if there are questions or concerns regarding this plan of care. Physician Signature: Date: 06/25/24 1108 CC: Dr. Rosie Rodriguez MD; Dr. Fracisco García MD MK Signed For Medicare only, by signing this I certify the plan of care. Physicians Signature Date Normal [facility] Neurology Visit Reporton Neurology Visit Report [facility] [address] [place] [address], [address] [place] [address] OFFICE VISIT Date of Service: 12/25/23 MR#: [id number] Acct: [id number] Name: ANGUS ESTEVES Rep #: [id number] : 1950 Provider: Dr. Pierce doty MD Age/Sex: 73/M Location: [facility]. Status: Signed HPI [facility] Chief Complaint: Details: Interim History: Angus returns for follow-up visit. He has a history of hypertension, hyperlipidemia, right renal atrophy, obstructive sleep apnea (on CPAP), depression, anxiety and bipolar disorder. He is accompanied by his . He has been experiencing a tremor in the hands (right greater than left) since 2019. His tremor gradually worsened over time however no further change has been noted within recent months. His tremor is worse when he is anxious or tired. The tremor is also worse with activities such as handwriting. He has had slight decreased dexterity in the use of his hands. Overall, he is not experiencing significant functional impairment due to his tremor. Since the spring 2022, he has exhibited some slowness of his arm movement. His gait has slowed since 2021 and his gait had a shuffling and stooped pattern. His voice has become hypophonic since 2021. He denied having swallowing difficulty. He is under the care of a psychiatrist, Dr. Lowery, for his bipolar disorder, depression and anxiety. He has been taking quetiapine for years. He has also been taking lamotrigine for years. He also takes fluoxetine. An attempt to discontinue quetiapine resulted in worsening of his mood disorder. He previously took quetiapine 300 mg nightly. He is currently taking quetiapine 100 mg nightly and has not had worsening of his psychiatric symptoms. Carbidopa/levodopa was initiated in 2022 and he is tolerating this well. Following initiation of carbidopa and levodopa and reduction of his dose of quetiapine he had some improvement of his parkinsonian tremor and gait. He no longer exhibits shuffling. No further change of his parkinsonian symptoms has been noted within recent months. He has had some memory difficulty since around 2019. He has a tendency to forget conversations and to repeat conversations. He has difficulty recalling recent information such as telephone numbers. Overall, he has remained independent in his daily activities at home. He has not become lost in familiar surroundings. He has been able to drive without difficulty. No change in his cognitive status over recent months is reported. He takes ropinirole nightly for periodic leg movement of sleep and this has been of benefit. He has exhibited some drooling and decreased facial expressiveness. Mini-Mental status exam score was 26/30 in November 2022. His carotid ultrasound (July 2023) did not reveal hemodynamically significant stenosis. His cardiac echo (August 2023) revealed mild to moderate aortic stenosis. Physical Exam: Neuro: The patient is awake; he is slightly bradyphrenic; speech is mildly hypophonic; no rigidity is noted in the wrists; a right hand parkinsonian tremor is noted when he ambulates; decreased bilateral arm swing is noted bilaterally when he ambulates; his gait is slightly slow but is not shuffling Neck: No bruits (on examination earlier in 2023 a left carotid bruit was auscultated) Heart: Regular rhythm and rate; a cardiac murmur is noted Supplemental Info Head CT (06/28/2018): FINDINGS: Normal soft tissue structures. Normal calvarium. There is asymmetry of the ventricles consistent with an anatomic variant. Normal white matter tracts of the cerebral hemispheres. Normal basal ganglia and thalami. Normal brainstem. Normal cerebellum. There is no intracranial hemorrhage. There are no findings of an acute ischemic infarction. Atherosclerotic calcification of the cavernous portions of the internal carotid arteries as well as the vertebral arteries bilaterally. Mucosal thickening of the maxillary sinuses bilaterally slightly worse on the left side. Partial opacification of the ethmoid sinuses. Mucosal thickening of the sphenoid sinus. IMPRESSION: Chronic involutional changes of the brain. Sinusitis. Head MRI (06/28/2018): COMPARISON: 06/28/2018 FINDINGS: There is asymmetry of the ventricles consistent with an anatomic variant. There are a limited number of small white matter hyperintensities, distributed throughout the deep white matter tracts of the cerebral hemispheres, consistent with mild chronic white matter ischemic changes. Normal bilateral basal ganglia. Normal thalami. There is no extra-axial fluid accumulation. Normal flow voids within the major intracranial circulation suggesting patency by spin echo criteria. Normal venous enhancement. There is no enhancing intra-axial or extra-axial abnormality. Normal sella turcica, pituitary gland, infundibular stalk, optic chiasm and hypothalamus. Normal tectal plate and pineal glan (more content not included)... Normal [facility] ANES POSTPROC EVALon 023 ANES POSTPROC EVAL HNO ID: [id number] Author: Esa Hui DO Service: Anesthesiology Author Type: Physician Type: Anesthesia Postprocedure Evaluation Filed: 05/24/2022 12:14 PM Note Text: POST ANESTHESIA EVALUATION NOTE : 1950 Procedure Summary Date: 05/24/22 Room / Location: MR OR OR Anesthesia Start: 916 Anesthesia Stop: 1125 Procedure: ARTHROPLASTY REPLACE JOINT TOTAL SHOULDER (Left: Shoulder) Diagnosis: Arthritis of left shoulder region (Arthritis of left shoulder region [M19.012]) Surgeons: Renato Mullen Jr., MD Responsible Provider: Esa Hui DO Anesthesia Type: general ASA Status: 2 Anesthesia Type: general Airway Type: ETT Last Vitals Vitals Value Taken Time BP 139/79 05/24/22 1204 Temp 36.6 ?C (97.8 ?F) 05/24/22 1127 Pulse 60 05/24/22 1212 Resp 14 05/24/22 1204 SpO2 95 % 05/24/22 1212 Vitals shown include unvalidated device data. Post Anesthesia Patient Status Patient Evaluation: PACU. PACU/ICU Patient Condition: stable. Anticipated Disposition: inpatient floor planned admission. Neurological Status: aware and responsive. Pulmonary Status: breathing comfortably on room air Airway Control: returned to baseline unsupported. Cardiovascular Status: stable. Pain Management: satisfactory to patient - multimodal analgesia pain management approach Postoperative Hydration: acceptable. Intraoperative Events: no significant anesthesia events Post Operative Nausea/Vomiting Status: no significant post operative nausea or vomiting Recommendation: further care per PACU/ICU/floor team. Anesthesia Observations No Documentation SIGNATURE: Esa Hui DO PATIENT NAME: Angus Esteves DATE: May 24, 2022 TIME: 12:14 PM CSN: [id number] [facility] ANES PRE-OPon 05-24-2022 ANES PRE-OP HNO ID: [id number] Author: Esa Hui DO Service: Anesthesiology Author Type: Physician Type: Anesthesia Preprocedure Evaluation Filed: 05/24/2022 7:41 AM Note Text: ANESTHESIOLOGY DAY OF SURGERY NOTE : 1950 Procedure Information Date/Time: 05/24/22929 Procedure: ARTHROPLASTY REPLACE JOINT TOTAL SHOULDER (Left: Shoulder) Location: OR / OR Surgeons: Renato Mullen Jr., MD Estimated body mass index is 31.93 kg/m? as calculated from the following: Height as of this encounter: 172.7 cm (5' 8). Weight as of this encounter: 95.3 kg (210 lb). Most recent hematocrit and potassium results: Hematocrit 39.5 05/02/2022 Potassium 4.2 05/02/2022 Relevant Problems No relevant active problems I - PHYSICAL EVALUATION AIRWAY Patient intubated: No. Tracheostomy tube not present Mallampati: II. TM distance: >3 FB. Neck ROM: full ROM without neurological symptoms. Short neck: no. Thick neck: no DENTAL Dental findings: teeth intact. Additional exam findings: yes. CARDIOVASCULAR Normal cardiovascular observations. PULMONARY Normal pulmonary observations. ABDOMINAL Normal abdominal observations. Other findings: A/ox3. II - ANESTHESIA PLAN ASA Score: 2 Anesthetic Plan: general Airway type: ETT The patient is not a current smoker. NPO Status: adequate Beta Estevan Monitoring Plan Monitoring plan: standard ASA. Post Procedure Analgesic Plan Postoperative analgesic plan: parenteral or oral opioids, per surgical service, peripheral nerve block and multimodal analgesia. Informed Consent Anesthetic risks, benefits, alternatives, personnel and consent discussed: yes. Patient / Responsible Libertarian agrees to proceed: yes Patient / Surrogate agrees to blood products: Yes Significant changes in the patient condition since the History and Physical, not otherwise documented in primary service progress note: no. Potential Anesthesia issues that may suggest increased risk of complications or contraindication to planned procedure: none. No vitals data found for the desired time range. Facility-Administered Medications as of 05/24/2022 Medication Dose Route Frequency - ceFAZolin iv piggyback 2 g in D5W (iso-osmotic) 100 mL (ANCEF) 2 g INTRAVENOUS q 8 HR - vancomycin iv piggyback 1.5 g in D5W 250 mL (VANCOCIN) 0.015 g/kg/dose INTRAVENOUS Post-Op Once - NaCl 0.9% iv flush bag 20 mL INTRAVENOUS PRN - dextrose 5% in NaCl 0.45% with 20 mEq/L KCl iv infusion 75 mL/hr INTRAVENOUS CONTINUOUS - acetaminophen 1,000 mg tab(s) (TYLENOL) 1,000 mg ORAL q 8 H - traMADol 50 mg tab(s) (ULTRAM) 50 mg ORAL q 6 H PRN - oxyCODONE IR 5-10 mg tab(s) (ROXICODONE) 5-10 mg ORAL q 3 H PRN - morphine 2 mg injection 2 mg INTRAVENOUS q 2 H PRN - ondansetron 4 mg tab(s) (ZOFRAN) 4 mg ORAL q 6 H PRN Or - ondansetron (PF) 4 mg injection (ZOFRAN) 4 mg INTRAVENOUS q 6 H PRN - traZODone 25 mg tab(s) (DESYREL) 25 mg ORAL AT BEDTIME PRN - diphenhydrAMINE 25 mg (BENADRYL) 25 mg ORAL q 4 H PRN - aluminum-magnesium hydroxide-simethicone 200-200-20 mg/5 mL 30 mL (MAALOX,MYLANTA,MAG-AL PLUS) 30 mL ORAL q 2 H PRN - povidone-iodine 10 % solution (BETADINE) TOPICAL Pre-Op Once - celecoxib 400 mg cap(s) (CeleBREX) 400 mg ORAL ONCE - acetaminophen 1,000 mg tab(s) (TYLENOL) 1,000 mg ORAL ONCE - metoclopramide HCl 10 mg tab(s) (REGLAN) 10 mg ORAL Pre-Op Once - dexAMETHasone sodium phosphate 5 mg injection (DECADRON) 5 mg INTRAVENOUS ONCE - ceFAZolin iv piggyback 2 g in D5W (iso-osmotic) 100 mL (ANCEF) 2 g INTRAVENOUS ONCE - vancomycin iv piggyback 1.5 g in D5W 250 mL (VANCOCIN) 0.015 g/kg/dose INTRAVENOUS ONCE - lactated ringers iv infusion 30 mL/hr INTRAVENOUS CONTINUOUS Outpatient Medications as of 05/24/2022 Medication Sig - losartan (COZAAR) 50 mg tablet Take 50 mg by mouth daily at bedtime. - metoprolol succinate ER (TOPROL XL) 100 mg Take 100 mg by mouth every morning. - lamoTRIgine (LAMICTAL) 200 mg tablet Take 150 mg by mouth once daily. Takes for OCD BIPOLAR, DEPRESSION Take 1.5 tabs - aspirin, enteric coated (ASPIRIN, ENTERIC COATED) 81 mg EC tablet Take 81 mg by mouth daily at bedtime. WILL VERIFY WITH DR CABRERA PCP TAKES PREVENTATIVE - hydroCHLOROthiazide (HYDRODIURIL, ESIDRIX) 25 mg tablet Take 25 mg by mouth every morning. - rOPINIRole (REQUIP) 0.5 mg tablet Take 0.25 mg by mouth daily at bedtime. - Cholecalciferol, Vitamin D3, 50 mcg (2,000 unit) cap Take 2 capsules by mouth every morning. STOP 3 WEEKS PRIOR TO SURGERY - melatonin 10 mg cap Take by mouth daily at bedtime. - quetiapine fumarate(SEROQUEL 200 MG TAB) Take 200 mg by mouth daily at bedtime. - tamsulosin hcl(FLOMAX 0.4 MG 24 HR CAP) Take 0.4 mg by mouth daily at bedtime. I have interviewed and examined the patient. I have reviewed the medical record and/or the pre-anesthesia evaluation, pertinent labs, and test results. This contains updated information obtained (more content not included)... [facility] BRIEF OP NOTon 05-24-2022 BRIEF OP NOT HNO ID: [id number] Author: Renato Mullen Jr., MD Service: Orthopaedic Surgery Author Type: Physician Type: Brief Op Note Filed: 05/24/2022 1:22 PM Note Text: TOTAL KNEE ARTHROPLASTY BRIEF OPERATIVE / PROCEDURE NOTE LOG ID: [id number] Surgery/Procedure Date: 05/24/2022 Incision/Procedure Start Time: 9:46 AM Incision Close/Procedure End Time: 11:14 AM Surgeon(s)/Proceduralis t(s) and Supervisor Powdered Metal(s): Surgeon(s) and Role: * Renato Mullen Jr., MD - Primary Dope Mixer: Anand Garza SA Procedure(s): Procedure(s) (LRB): ARTHROPLASTY REPLACE JOINT TOTAL SHOULDER (Left) Left biceps tendesis Anesthesia: General Peripheral Block Type: scalene with experol Approach: deltopectoral Findings: severe GH OA; intact cuff; hypertrophic biceps Estimated Blood Loss: 50 mls Specimens: None Complications: None Closure Technique: Primary Total Joint Arthroplasty (TJA) Surgical Risk Procedure: Not on file Date assessed: Not on file No flowsheet data found. Implant: Implant Name Type Inv. Item Serial No. Mime Artist Lot No. LRB No. Used Action [employer]IANCE TM SHOULDER GLENOID PROSTHESIS [id number] Implant [employer] [id number] Left 1 Implanted PIN STEINMANN COMPREHENSIVE 3.2MM STAINLESS STEEL 9IN FIXATION THREAD - [id number] Pin PIN STEINMANN COMPREHENSIVE 3.2MM STAINLESS STEEL 9IN FIXATION THREAD [employer] [id number] Left 1 Non-Implant HEAD COMPREHENSIVE VERSA-DIAL 57MM 50MM 21MM HUMERAL SHOULDER - [id number] Joint - Shoulder HEAD COMPREHENSIVE VERSA-DIAL 57MM 50MM 21MM HUMERAL SHOULDER [employer] [id number] Left 1 Implanted ADAPTER COMPREHENSIVE STANDARD TITANIUM HEAD TAPER REVERSE SHOULDER SYSTEM - [id number] Joint - Shoulder ADAPTER COMPREHENSIVE STANDARD TITANIUM HEAD TAPER REVERSE SHOULDER SYSTEM [employer] [id number] Left 1 Implanted STEM COMPREHENSIVE 12MM MINI POROUS 83MM HUMERAL SHOULDER - [id number] Joint - Shoulder STEM COMPREHENSIVE 12MM MINI POROUS 83MM HUMERAL SHOULDER [employer] [id number] Left 1 Implanted ALLIANCE IMP SHIELD 4 PEG MOD GLENOID SZ4 [id number] Implant [employer] [id number] Left 1 Implanted CEMENT BIOMET BONE 40GM - [id number] Cement / Putty CEMENT BIOMET BONE 40GM [employer] [id number] Left 1 Implanted Bearing Surface: Fixed Fixation: Hybrid SSI Risk Factors: NA Constraint: none Other: None Pre-Op/Pre-Procedure Diagnosis: Arthritis of left shoulder region [M19.012] Post-Op/Post-Procedure Diagnosis: Arthritis of left shoulder region [M19.012] Weight Bearing Status: Non-Weight Bearing SIGNATURE: Renato Mullen Jr, MD PATIENT NAME: Angus Esteves DATE: May 24, 2022 TIME: 1:20 PM [facility] HNO ID: [id number] Author: Kevin Geiger APRN.METAL SPRAY OPERATOR Service: Orthopaedic Surgery Author Type: Nurse Practitioner Type: Discharge Summary Filed: 05/25/2022 2:07 PM Note Text: Attestation signed by Renato Mullen Jr., MD at 05/31/2022 10:00 AM Agree DISCHARGE SUMMARY PATIENT NAME: Angus Esteves ADMISSION DATE: 05/24/2022 DISCHARGE DATE: 05/24/2022 ATTENDING PHYSICIAN: Renato Mullen * Code Status: Prior Highest Readmission Risk Score: 6 The 30 day readmissions risk score is derived from an internally validated risk model which evaluates patient level characteristics, utilization history, medication orders and lab results up until the day of discharge. Patients with a score of 40 or above are considered highest risk for readmission. Specific patient level drivers will be listed at the bottom of the summary. CONSULTING TEAMS DURING HOSPITALIZATION: None Treatment Team: Attending Provider: Renato Mullen Jr., MD REASON FOR HOSPITALIZATION: Status post left total shoulder arthroplasty DIAGNOSIS: Principal Problem: Osteoarthritis of left shoulder, unspecified osteoarthritis type POA: Yes Active Problems: Status post replacement of left shoulder joint POA: No Obesity, Class II, BMI 35-39.9 POA: Yes Resolved Problems: * No resolved hospital problems. * OPERATIONS DURING HOSPITALIZATION: Left total shoulder arthroplasty 05/24/[address] Mullen [facility] COURSE: This is a 71-year-old gentleman who came into [facility] as had been scheduled and underwent a left total shoulder arthroplasty and left biceps tenodesis with Dr. Mullen 05/24/2022. He tolerated the surgery well without complication. He wanted to go home the same day of surgery and after he was recovered in PACU, he was able be discharged in stable condition same day of surgery, 05/24/2022. He will follow-up in the office as scheduled. PATIENT CONDITION AT DISCHARGE: Stable DISCHARGE DISPOSITION: Home with Self Care Stable physical condition WOUND/SURGICAL SITE CARE: Wound/Surgical Site Care Other: Keep surgical dressing in place until follow-up visit. If becomes loose or wet, can change to dry gauze and change as needed. DIET: Resume pre-hospital diet ACTIVITY: No weightbearing, no lifting with the left arm. Sling on for comfort and support as needed. Ice pack also as needed to the shoulder for pain and swelling. Pendulum exercises, passive and active assist range of motion. ALLERGIES No Known Allergies DISCHARGE MEDICATION: Discharge Medication List as of 05/24/2022 1:08 PM START taking these medications oxyCODONE-acetaminophen (PERCOCET) 5-325 mg tablet Take 1 tablet by mouth every 6 hours as needed for pain. Prescription given in office. In Office, Disp-28 tablet, R-0 traMADol (ULTRAM) 50 mg tablet Take 1 tablet by mouth every 4 hours as needed for pain. Prescription given in office. In Office, Disp-42 tablet, R-0 celecoxib (CELEBREX) 200 mg capsule Take 1 capsule by mouth twice daily. Prescription given in office. Take for 6 weeks after surgery In Office, Disp-84 capsule, R-0 cephALEXin (KEFLEX) 500 mg capsule Take 1 capsule by mouth every 8 hours for 3 doses. Prescription given in office. Begin taking in the evening after discharge home from hospital In Office, Disp-3 capsule, R-0 CONTINUE these medications which have CHANGED aspirin, enteric coated (ADULT LOW DOSE ASPIRIN) 81 mg EC tablet Take 1 tablet by mouth twice daily. Take twice a day for 6 weeks, then resume usual dose of once per day OTC, Disp-84 tablet, R-0, Long-term CONTINUE these medications which have NOT CHANGED losartan (COZAAR) 50 mg tablet Take 50 mg by mouth daily at bedtime. Historical Med, Long-term metoprolol succinate ER (TOPROL XL) 100 mg Take 100 mg by mouth every morning. Historical Med, Long-term lamoTRIgine (LAMICTAL) 200 mg tablet Take 150 mg by mouth once daily. Takes for OCD BIPOLAR, DEPRESSION Take 1.5 tabs Historical Med, Long-term hydroCHLOROthiazide (HYDRODIURIL, ESIDRIX) 25 mg tablet Take 25 mg by mouth every morning. Historical Med, Long-term rOPINIRole (REQUIP) 0.5 mg tablet Take 0.25 mg by mouth daily at bedtime. Historical Med, Long-term Cholecalciferol, Vitamin D3, 50 mcg (2,000 unit) cap Take 2 capsules by mouth every morning. STOP 3 WEEKS PRIOR TO SURGERY Historical Med, Long-term melatonin 10 mg cap Take by mouth daily at bedtime. Historical Med, Long-term quetiapine fumarate(SEROQUEL 200 MG TAB) Take 200 mg by mouth daily at bedtime. Med Update, Disp-0, R-0 Dx: 1. Screen for colon cancer 2. Rectal bleeding tamsulosin hcl(FLOMAX 0.4 MG 24 HR CAP) Take 0.4 mg by mouth daily at bedtime. Med Update, R-0 Dx: 1. Screen for c (more content not included)... Normal [facility] CONFIRM BLOOD TYPEon 023 ABO B Normal [facility] Comment on above: Order Comment: Speci men Type: BLOOD SPECIMEN [facility]ing Facility[facility] [facility] Address: [place] [address] Performed By: #### 5 8410-2, 72116-0 #### [facility] CLIA [id number] [facility] [place] [address] [place] Rh Nom (Bld) Positive Normal [facility] Comment on above: Order Comment: Speci men Type: BLOOD SPECIMEN Ordering Facility: [facility] Address: [place] [address] Performed By: #### 5 8410-2, 10652-8 #### [facility] CLIA [id number] [address] [place] [address] [place] HISTORY PHYSICALon HISTORY PHYSICAL HNO ID: [id number] Author: Renato Mullen Jr., MD Service: Orthopaedic Surgery Author Type: Physician Type: HANDP Filed: 05/24/2022 7:24 AM Note Text: No change to HANDP Normal [facility] NURSING PROGon 05-24-2022 NURSING PROG HNO ID: [id number] Author: Constanza Daly RN Service: Nursing Author Type: Registered Nurse Type: Nursing Progress Note Filed: 05/24/2022 8:54 AM Note Text: Summary: block Dr. Hui placed left interscalene block using ultrasound guidance. Pt. tolerated well. Normal [facility] OPERATIVE NOon 05-24-2022 OPERATIVE NO HNO ID: [id number] Author: Renato Mullen Jr., MD Service: Orthopaedic Surgery Author Type: Physician Type: Operative Report Filed: 05/31/2022 10:02 AM Note Text: - Operative Notes ANGUS ESTEVES : 1950 AGE: 71 SEX: M CSN: [id number] HOSP SVC: LOCATION: [place] [address] ATTENDING PHYSICIAN: RENATO MULLEN JR DATE OF SERVICE: 05/24/2022 PREOPERATIVE DIAGNOSIS: Left shoulder glenohumeral osteoarthritis with intact rotator cuff. POSTOPERATIVE DIAGNOSES: 1. Left shoulder glenohumeral osteoarthritis with intact rotator cuff. 2. Biceps partial tearing, hypertrophic change and instability. OPERATION: 1. Left total shoulder arthroplasty, anatomic, using the Camilo Biomet 12 x 83 comprehensive stem at approximately 25 degrees of retroversion, a size 4 cemented 3-peg glenoid with a cementless central Regenerex post, 50 x 21 x 57 head in the offset rotation directed to the posterior-inferior for optimal head coverage. 2. Left shoulder biceps long head tenotomy with tenodesis to bone. SURGEON: Renato Mullen MD COMPLICATIONS: None. BLOOD LOSS: 15 mL. OPERATIVE INDICATIONS: Angus Esteves is a 71-year-old male who I have seen in the office, having previously performed right anatomic total shoulder arthroplasty on, with which he has done well. He has similar process of disease on his left side and wished to undergo similar surgery. A thorough review of inherent and material risks of intervention was explained to him in detail and informed consent was obtained prior to the surgery. OPERATION: Angus Esteves was taken to the operating room on May 24, 2022, where he was placed in the supine position on the operative table, where the general anesthetic was administered. Exparel scalene block was applied in the preop holding area. Preoperative antibiotics had been given. All bony prominences were well padded and he was placed into a low beach chair position, where the sterile prep and drape was performed. Following this, a deltopectoral approach was made in standard fashion. Coracobrachialis was placed underneath the Kolbel retractor, which was a large blade. The medium blade was placed to the deltoid and this secured adequate retraction. The rotator cuff was found to be intact. This was opened at the rotator interval and the subscapularis was taken down approximately 1 cm from its attachment and a number 2 Ethibond stay suture was placed at the upper border of the subscapularis. This allowed for exposure to the head, for which Ezra retractors were placed inferior and superior as well as tissue dissection being performed as well as capsule releasing. Head cut was then made at approximately 25 degrees of retroversion. Excess osteophytes were removed. Facuda retractor was placed. Anterior glenoid retractor was placed. Labral tissues were excised with electrocautery. The glenoid sizer for a size 4 was deemed best. It was therefore placed and the central drill hole created. This then allowed for central reaming for the Regenerex post as well as the next jig associated with the 3 drill holes for the pegs. With this completed, the trial sat well with all of the equipment otherwise removed. The trial was then removed. Antibiotic-impregnated irrigation was carried out throughout. Bone surfaces were all dried. The formal size 4 glenoid component was assembled with a Regenerex central post, after which the cement was mixed and was placed on the back of the pegs and the component within the first 3 minutes of cement mixing, after which it was pressurized into the 3 peg holes which were then filled with the component. The central Regenerex peg was cementless, three pegs cemented. The component was impacted into place and excess cement was removed. Compression was held as the cement hardened. Additional irrigation was then carried out to assure there was no issue with loose cement, after which the head was delivered into the wound and was reamed up to a size 12 Mini Stem. The trial was placed with the 50 x 21 x 57 head in the offset rotation, directed posterior inferior being ideal. These trials were then removed. The size 12 x 83 formal stem was impacted into placed at 25 degrees of retroversion and the 50 x 21 x 57 head was then assembled and placed in the posterior-inferior direction to a cleaned taper. This was then reduced and placed through a range of motion. There was no issue or dislocation. Antibiotic-impregnated irrigation was again carried out, after which the biceps tenodesis was finished with the suture tape, followed by reapproximation of the subscapularis with interrupted figure-eight sutures using suture tape as well. Rotator interval zone was closed with number 2 Ethibond, as was the most inferior subscapularis region. A (more content not included)... Normal [facility] CBC panel Auto (Bld)on 05-02 Erythrocyte distribution width (RBC) [Ratio] 12.2 % Normal 11.5-15.0 [facility] Comment on above: Order Comment: Speci men Type: BLOOD SPECIMEN Ordering Facility: [facility] Address: [address] [address] Performed By: #### 5 8410-2, 25362-8 #### [facility] CLIA [id number] [address] [place] [address] [place] Hematocrit (Bld) [Volume fraction] 39.5 % Normal 39.0-51.0 [facility] Comment on above: Order Comment: Speci men Type: BLOOD SPECIMEN Ordering Facility: [facility] Address: [address] [address] Performed By: #### 5 8410-2, 82307-0 #### [facility] CLIA [id number] [address] [place] [address] [place] Hemoglobin (Bld) [Mass/Vol] 14.0 g/dL Normal 13.0-17.0 [facility] Comment on above: Order Comment: Speci men Type: BLOOD SPECIMEN Ordering Facility: [facility] Address: [address] [address] Performed By: #### 5 8410-2, 20659-6 #### [facility] CLIA [id number] [address] [place] [address] [place] MCH (RBC) [Entitic mass] 31.5 pg Normal 26.0-34.0 [facility] Comment on above: Order Comment: Speci men Type: BLOOD SPECIMEN Ordering Facility: [facility] Address: [address] [address] Performed By: #### 5 8410-2, 28929-9 #### [facility] CLIA [id number] [address] [place] [address] [place] MCHC (RBC) [Mass/Vol] 35.4 g/dL Normal 30.5-36.0 [facility] Comment on above: Order Comment: Speci men Type: BLOOD SPECIMEN Ordering Facility: [facility] Address: [address] [address] Performed By: #### 5 8410-2, 00985-6 #### [facility] CLIA [id number] [address] [place] [address] [place] MCV (RBC) [Entitic vol] 88.8 fL Normal 80.0-100.0 [facility] Comment on above: Order Comment: Speci men Type: BLOOD SPECIMEN Ordering Facility: [facility] Address: [address] [place] [address] Performed By: #### 5 8410-2, 30736-4 #### [facility] CLIA [id number] [address] [place] [address] [place] Nucleated RBC (Bld) [#/Vol] 10*3/uL Normal <0.01 [facility] Comment on above: Order Comment: Speci men Type: BLOOD SPECIMEN Ordering Facility: [facility] Address: [address] [place] [address] Performed By: #### 5 8410-2, 53048-1 #### [facility] CLIA [id number] [address] [place] [address] [place] Platelet mean volume (Bld) [Entitic vol] 9.2 fL Normal 9.0-12.7 [facility] Comment on above: Order Comment: Speci men Type: BLOOD SPECIMEN Ordering Facility: [facility] Address: [address] [place] [address] Performed By: #### 5 8410-2, 00418-1 #### [facility] CLIA [id number] [address] [place] [address] [place] Platelets (Bld) [#/Vol] 195 10*3/uL Normal 150-400 [facility] Comment on above: Order Comment: Speci men Type: BLOOD SPECIMEN Ordering Facility: [facility] Address: [address] [place] [address] Performed By: #### 5 8410-2, 42045-6 #### [facility] CLIA [id number] [address] [place] [address] [place] RBC (Bld) [#/Vol] 4.45 10*6/uL Normal 4.20-6.00 [facility] Comment on above: Order Comment: Speci men Type: BLOOD SPECIMEN Ordering Facility: [facility] Address: [place] [address] Performed By: #### 5 8410-2, 87116-5 #### [facility] CLIA [id number] [address] [place] [address] OF [facility] WBC (Bld) [#/Vol] 4.78 10*3/uL Normal 3.70-11.00 [facility] Comment on above: Order Comment: Speci men Type: BLOOD SPECIMEN Ordering Facility: [facility] Address: [place] [address] Performed By: #### 5 8410-2, 93837-0 #### [facility] CLIA [id number] [address] [place] [address] [place] Erythrocyte distribution width (RBC) [Ratio] 12.2 % 11.5 - 15.0 % [facility] Hematocrit (Bld) [Volume fraction] 39.5 % 39.0 - 51.0 % [facility] Hemoglobin (Bld) [Mass/Vol] 14.0 g/dL 13.0 - 17.0 g/dL [facility] MCH (RBC) [Entitic mass] 31.5 pg 26.0 - 34.0 pg [facility] MCHC (RBC) [Mass/Vol] 35.4 g/dL 30.5 - 36.0 g/dL [facility] MCV (RBC) [Entitic vol] 88.8 fL 80.0 - 100.0 fL [facility] Nucleated RBC (Bld) [#/Vol] <0.01 k/uL [facility] Platelet mean volume (Bld) [Entitic vol] 9.2 fL 9.0 - 12.7 fL [facility] Platelets (Bld) [#/Vol] 195 10*3/uL 150 - 400 k/uL [facility] RBC (Bld) [#/Vol] 4.45 10*6/uL 4.20 - 6.0 0 m/uL [facility] WBC (Bld) [#/Vol] 4.78 10*3/uL 3.70 - 11. 00 k/uL [facility] metabolic 2000 panelon 05-02-2022 Albumin [Mass/Vol] 3.8 g/dL Normal 3.2-5.0 [facility] Comment on above: Order Comment: Speci men Type: BLOOD SPECIMEN Ordering Facility: [facility] Address: [address] [place] [address] Performed By: #### 2 4323-8 #### [facility] CLIA [id number] [address] [place] [address] [place] ALP [Catalytic activity/Vol] 85 U/L Normal 45-117 [facility] Comment on above: Order Comment: Speci men Type: BLOOD SPECIMEN Ordering Facility: [facility] Address: [address] [place] [address] Performed By: #### 2 4323-8 #### [facility] CLIA [id number] [address] [place] [address] [place] ALT [Catalytic activity/Vol] 24 U/L Normal 13-61 [facility] Comment on above: Order Comment: Speci men Type: BLOOD SPECIMEN Ordering Facility: [facility] Address: [address] [place] [address] Result Comment: Resu lts may be falsely depressed after the administration of Sulfasalazine and/or Sulfapyridine. Performed By: #### 2 4323-8 #### [facility] CLIA [id number] [address] [place] [address] [place] Anion gap [Moles/Vol] 5 mmol/L Normal 5-16 [facility] Comment on above: Order Comment: Speci men Type: BLOOD SPECIMEN Ordering Facility: [facility] Address: [address] [place] [address] Performed By: #### 2 4323-8 #### [facility] CLIA [id number] [address] [place] [address] [place] AST [Catalytic activity/Vol] 22 U/L Normal 8-34 [facility] Comment on above: Order Comment: Speci men Type: BLOOD SPECIMEN Ordering Facility: [facility] Address: [address] [address] Result Comment: Resu lts may be falsely depressed after the administration of Sulfasalazine and/or Sulfapyridine. Performed By: #### 2 4323-8 #### [facility] CLIA [id number] [address] [place] [address] [place] Bilirubin [Mass/Vol] 0.4 mg/dL Normal 0.2-1.0 [facility] Comment on above: Order Comment: Speci men Type: BLOOD SPECIMEN Ordering Facility: [facility] Address: [address] [address] Performed By: #### 2 4323-8 #### [facility] CLIA [id number] [address] [place] [address] [place] Calcium [Mass/Vol] 9.9 mg/dL Normal 8.5-10.5 [facility] Comment on above: Order Comment: Speci men Type: BLOOD SPECIMEN Ordering Facility: [facility] Address: [address] [address] Performed By: #### 2 4323-8 #### [facility] CLIA [id number] [address] [place] [address] [place] Chloride [Moles/Vol] 106 mmol/L Normal 98-107 [facility] Comment on above: Order Comment: Speci men Type: BLOOD SPECIMEN Ordering Facility: [facility] Address: [address] [address] Performed By: #### 2 4323-8 #### [facility] CLIA [id number] [address] [place] [address] [place] CO2 [Moles/Vol] 29 mmol/L Normal 21-32 [facility] Comment on above: Order Comment: Speci men Type: BLOOD SPECIMEN Ordering Facility: [facility] Address: [address] [address] Performed By: #### 2 4323-8 #### [facility] CLIA [id number] [address] [place] [address] [place] Creatinine [Mass/Vol] 1.17 mg/dL Normal 0.50-1.40 [facility] Comment on above: Order Comment: Lalitha rodriguez Type: BLOOD SPECIMEN Ordering Facility: [facility] Address: [address] [id number] Result Comment: Ce ents receiving either N-Acetylcysteine (NAC) or Metamizole prior to venipuncture, may have falsely depressed results. Performed By: #### 2 4323-8 #### [facility] CLIA [id number] [address] [place] [address] [place] ESTIMATED GLOMERULAR FILTRATION RATE 66 mL/min/1.73m??? Normal >=60 [facility] Comment on above: Order Comment: Lalitha rodriguez Type: BLOOD SPECIMEN Ordering Facility: [facility] Address: [address] [place] [address] Result Comment: Dariana mated Glomerular Filtration Rate (eGFR) is calculated using the 2020 CKD-EPI creatinine equation. This equation utilizes serum creatinine, sex, and age as parameters. The creatinine assay has traceable calibration to isotope dilution-mass spectrometry. Refer to KDIGO guidelines for clinical interpretation. In patients with unstable renal function, e.g. those with acute kidney injury, the eGFR may not accurately reflect actual GFR. Performed By: #### 2 4323-8 #### [facility] CLIA [id number] [address] [place] [address] [place] Glucose [Mass/Vol] 95 mg/dL Normal 70-100 [facility] Comment on above: Order Comment: Lalitha rodriguez Type: BLOOD SPECIMEN Ordering Facility: [facility] Address: [address] [place], [place] [phone] Result Comment: The [place] Diabetes Association (ADA) provides guidance for cutoff values for fasting glucose and random glucose. The ADA defines fasting as no caloric intake for at least 8 hours. Fasting plasma glucose results between 100 to 125 mg/dL indicate increased risk for diabetes (prediabetes). Fasting plasma glucose results greater than or equal to 126 mg/dL meet the criteria for diagnosis of diabetes. In the absence of unequivocal hyperglycemia, results should be confirmed by repeat testing. In a patient with classic symptoms of hyperglycemia or hyperglycemic crisis, random plasma glucose results greater than or equal to 200 mg/dL meet the criteria for diagnosis of diabetes. Reference: Standards of Medical Care in Diabetes 2016, [place] Diabetes Association. Diabetes Care. 2016.39(Suppl 1). Results may be falsely elevated after the administration of Sulfapyridine. Results may be falsely depressed after the administration of Sulfasalazine. Performed By: #### 2 4323-8 #### [facility] CLIA [id number] [address] [place] [address] [place] Potassium [Moles/Vol] 4.2 mmol/L Normal 3.5-5.1 [facility] Comment on above: Order Comment: Melli michael Type: BLOOD SPECIMEN Ordering Facility: [facility] Address: [address] [place] [address] Performed By: #### 2 4323-8 #### [facility] CLIA [id number] [address] [place] [address] [place] Protein [Mass/Vol] 6.7 g/dL Normal 6.0-8.5 [facility] Comment on above: Order Comment: Melli michael Type: BLOOD SPECIMEN Ordering Facility: [facility] Address: [address] [place] [address] Performed By: #### 2 4323-8 #### [facility] CLIA [id number] [address] [place] [address] [place] Sodium [Moles/Vol] 140 mmol/L Normal 136-145 [facility] Comment on above: Order Comment: Speci men Type: BLOOD SPECIMEN Ordering Facility: [facility] Address: [address] [place] [address] Performed By: #### 2 4323-8 #### [facility] CLIA [id number] [address] [place] [address] [place] Urea nitrogen [Mass/Vol] 31 mg/dL High 7-26 [facility] Comment on above: Order Comment: Melli men Type: BLOOD SPECIMEN Ordering Facility: [facility] Address: [address] [place] [address] [place] [address] Performed By: #### 2 4323-8 #### [facility] CLIA [id number] [address] [place] [address] [place] Albumin [Mass/Vol] 3.8 g/dL 3.2 - 5.0 g/dL [facility] ALP [Catalytic activity/Vol] 85 U/L 45 - 117 U/L [facility] ALT [Catalytic activity/Vol] 24 U/L 13 - 61 U/L [facility] Anion gap [Moles/Vol] 5 mmol/L 5 - 16 mmol/L [facility] AST [Catalytic activity/Vol] 22 U/L 8 - 34 U/L [facility] Bilirubin [Mass/Vol] 0.4 mg/dL 0.2 - 1 .0 mg/dL [facility] Calcium [Mass/Vol] 9.9 mg/dL 8.5 - 10. 5 mg/dL [facility] Chloride [Moles/Vol] 106 mmol/L 98 - 10 7 mmol/L [facility] CO2 [Moles/Vol] 29 mmol/L 21 - 32 mmol/L [facility] Creatinine [Mass/Vol] 1.17 mg/dL 0.50 - 1.40 mg/dL [facility] Estimated Glomerular Filtration Rate 66 mL/min/1.73m >=60 mL/min/1.73m [facility] Glucose [Mass/Vol] 95 mg/dL 70 - 100 mg/dL [facility] Potassium [Moles/Vol] 4.2 mmol/L 3.5 - 5.1 mmol/L [facility] Protein [Mass/Vol] 6.7 g/dL 6.0 - 8.5 g/dL [facility] Sodium [Moles/Vol] 140 mmol/L 136 - 145 mmol/L [facility] Urea nitrogen [Mass/Vol] 31 mg/dL High 7 - 26 mg/dL [facility] ECG COMPLETEon 05-02-2022 Atrial Rate 63 BPM [facility] Calculated P Copeland -10 degrees [facility] Calculated R Cop[place] 10 degrees [facility] Calculated T [place] 29 degrees [facility] P-R Interval 216 ms [facility] QRS Duration 76 ms [facility] QT Interval 392 ms [facility] QTC Calculation (Bazett) 401 ms [facility] Ventricular Rate 63 BPM [facility] [id number] 05-02-2022 ECG01 Ventricular Rate : 6 3 BPM Atrial Rate : 63 BPM P-R Interval : 216 ms QRS Duration : 76 ms Q-T Interval : 392 ms QTC Calculation(Bazett) : 401 ms Calculated P Copeland : -10 degrees Calculated R Copeland : 10 degrees Calculated T Copeland : 29 degrees Sinus rhythm 1st degree AV block Otherwise normal ECG No previous ECGs available Confirmed by SARAH DOYLE MD ([id number]) on 05/02/2022 8:24:58 PM NAME : ANGUS ESTEVES PID : [id number] : 1950 Gender : Male Race : ORD : [id number] Procedure Date : May 02 2022 12:21:16 Edit Date : May 02 2022 20:25:00 Diagnosis: Sinus rhythm 1st degree AV block Otherwise normal ECG No previous ECGs available Confirmed by SARAH DOYLE MD ([id number]) on 05/02/2022 8:24:58 PM Test Reason : Location : : [facility] Overread By : SARAH DOYLE MD Edited By : SARAH DOYLE MD Referred By : RUBEN, Acquired by : [facility] HbA1c (Bld)on 05-02-2022 Average glucose Estimated from glycated hemoglobin (Bld) [Mass/Vol] 105 mg/dL [facility] HbA1c (Bld) [Mass fraction] 5.3 % 4.3 - 6.0 % [facility] Average glucose Estimated from glycated hemoglobin (Bld) [Mass/Vol] 105 mg/dL [facility] Comment on above: Order Comment: Lalitha rodriguez Type: BLOOD SPECIMEN Ordering Facility: [facility] Address: [address] [place] [phone] Result Comment: eAG: (Estimated average glucose) is a calculated value from HgbA1c and is textiles sales representative of the average blood glucose level in the last 2-3 month period. Performed By: #### 5 8410-2, 49180-1 #### [facility] CLIA [id number] [facility] [place] [address] [place] HbA1c (Bld) [Mass fraction] 5.3 % Normal 4.3-6.0 [facility] Comment on above: Order Comment: Speci men Type: BLOOD SPECIMEN Ordering Facility: [facility] Address: [address] [place] [address] Result Comment: [place] Diabetes Association guidelines indicate that patients with HgbA1c in the range 5.7-6.4% are at increased risk for development of diabetes, and intervention by lifestyle modification may be beneficial. HgbA1c greater or equal to 6.5% is considered diagnostic of diabetes. Performed By: #### 5 8410-2, 84228-1 #### [facility] CLIA [id number] [address] [place] [address] Laboratory - Microbiology an d Antimicrobial susceptibilityon 05-02-2022 S. aureus and MRSA panel JONH+probe (Nose) Negative Negative [facility] [facility] PCRon S. aureus and MRSA panel JONH+probe (Nose) Normal Negative [facility] Comment on above: Order Comment: Speci men Type: SWAB OF INTERNAL NOSE Ordering Facility: [facility] Address: [address] [place] [address] Result Comment: Nega tive for Staphylococcus aureus by PCR. Negative for MRSA by PCR Performed By: #### S APCR #### [facility] CLIA [id number] [address] [place] [address] TYPE AND SCREEN,30 DAYon ABO B [facility] HIstorical Ab Scr Status Negative [facility] Rh Nom (Bld) Positive [facility] ABO B Normal [facility] Comment on above: Order Comment: Speci men Type: BLOOD SPECIMEN Ordering Facility: [facility] Address: [address] [place] [address] Performed By: #### T SCR30 #### [facility] CLIA [id number] [address] [place] [address] HISTORICAL AB SCR STATUS Negative Normal [facility] Comment on above: Order Comment: Speci men Type: BLOOD SPECIMEN Ordering Facility: [facility] Address: [address] [place] [address] Performed By: #### T SCR30 #### [facility] CLIA [id number] [address] [place] [address] OF DENIS Rh Nom (Bld) Positive Normal [facility] Comment on above: Order Comment: Speci men Type: BLOOD SPECIMEN Ordering Facility: [facility] Address: [place] [address] Performed By: #### T SCR30 #### [facility] CLIA [id number] [address] [place] [address] OF DENIS [id number] 07-16-2020 Date of Onset [id number] Invalid Interpretation Code [facility] ([place]) Comment on above: Performed By: #### C OVD19 #### [place] [address] Employed in Healthcare No [facility] ([place]) Comment on above: Performed By: #### C OVD19 #### [place] [address] First Test No [facility] [place] Comment on above: Performed By: #### C OVD19 #### [place] [address] Hospitalized No [facility] [place] Comment on above: Performed By: #### C OVD19 #### [place] [address] ICU No [facility] [place] Comment on above: Performed By: #### C OVD19 #### [place] [address] Not [facility] [place] Comment on above: Performed By: #### C OVD19 #### [place] [address] Resides in Congregate Care Setting No [facility] [place] Comment on above: Performed By: #### C OVD19 #### [place] [address] SARS-CoV-2 (COVID-19) RNA JONH+probe Ql (Unsp spec) Negative Normal Negative [facility] ([place]) Comment on above: Performed By: #### C OVD19 #### [address] [address] SARS-CoV-2 (COVID-19) RNA JONH+probe Ql (Unsp spec) Normal [facility] ([place] Comment on above: Result Comment: Nega tive results do not preclude SARS-CoV-2 infection and should not be used as the sole basis for patient management decisions. Negative results must be combined with clinical observations, patient history, and epidemiological information. There is a risk of false negative values resulting from improperly collected, transported, or handled specimens. There is a risk of false negative values due to the presence of sequence variants in the pathogen targets of the assay, procedural errors, amplification inhibitors in specimens, or inadequate numbers of organisms for amplification. JOSE ALEJANDRO SARS-CoV-2 Assay is a Real-Time reverse-transcriptase polymerase chain reaction (RT-PCR) based qualitative in vitro diagnostic test intended for the qualitative detection of nucleic acid from the SARS-CoV-2 in nasopharyngeal swab specimens collected from individuals suspected of COVID-19 by their healthcare provider. Testing is limited to laboratories certified under the Clinical Laboratory Improvement Amendments of 1988 (CLIA), 42 U.S.C. ?263a, to perform moderate and high complexity tests. COVID-19 Int Performed By: #### C OVD19 #### [address] [address] Symptomatic as Defined by CDC No [facility] ([place]) Comment on above: Performed By: #### C OVD19 #### [address] [address] Vital Signs Date Time Vital Sign Value Performing Clinician Mackenzie mcarthur 05-02-2022 11:56-0500 Diastolic blood pressure 82 mm[Hg] Pacc 2 Work Phone: [facility] 05-02-2022 11:56-0500 Systolic blood pressure 153 mm[Hg] Pacc 2 Work Phone: [facility] 05-02-2022 11:55-0500 Body height 170.2 cm Pacc 2 Work Phone: [facility] 05-02-2022 11:55-0500 Body weight 105.87 kg Pacc 2 Work Phone: [facility] 05-02-2022 11:55-0500 Heart rate 63 /min Pacc 2 Work Phone: [facility] 05-02-2022 11:55-0500 Respiratory rate 18 /min Pacc 2 Work Phone: [facility] 05-02-2022 11:55-0500 SaO2% (BldA) [Mass fraction] 96 % [facility]acc 2 Work Phone: [facility] Encounters Encounter Date Encounter Type Care Provider Facility Start: 09-24-2024 [facility] Facility[facility] Start: 09-20-2024 ambulatory Fracisco García Facility: [facility] Start: 09-03-2024 ambulatory [facility] Facility:[facility] Start: 08-27-2024 End: 08-27-2024 ambulatory [facility] Facility:[facility] Start: 08-22-2024 End: 08-22-2024 ambulatory Pierce Cummings Facility:[facility] Start: 06-28-2024 End: 06-28-2024 ambulatory Rosie Rodriguez Facility:[facility] Start: 06-20-2024 End: 06-20-2024 ambulatory Laney Fall [employer]LLWAY MAN Facility:[facility] Start: 06-18-2024 ambulatory Efewongbe Oleghe OLS Fa cility:[facility] Start: 06-11-2024 End: 06-11-2024 ambulatory Laney Fall [employer] MAN Facility:[facility] Start: 06-04-2024 ambulatory Efewongbe Oleghe OLS Fa cility:[facility] Start: 05-28-2024 ambulatory Efewongbe Oleghe OLS Fa cility:[facility] Start: 05-21-2024 End: 05-21-2024 ambulatory Efewongbe Oleghe Facility:[facility] Start: 12-25-2023 End: 12-25-2023 ambulatory Pierce Cummings Facility:[facility] Start: 05-24-2022 End: 05-24-2022 Evaluation and management of inpatient RENATO MULLEN JR Facility:[id number] Start: 05-06-2022 Encounter for other preprocedural examination RENATO MULLEN JR [facility] Start: 05-03-2022 End: 05-06-2022 ambulatory RENATO MULLEN JR Facility:[id number] Start: 05-02-2022 End: 05-02-2022 Admission to [place] [address] Work Phone: Start: 05-02-2022 End: 05-02-2022 ambulatory Pac 2 Work Phone: Pre Anesthesia Comment on above: Preop testing (Prima ry Dx); Postprocedural hypoinsulinemia Start: 05-02-2022 End: 05-02-2022 Patient encounter status Pacc 2 Work Phone: Pre Anesthesia Procedures Date Procedure Procedure Detail Performing Clinician Start: 05-02-2022 End: 05-02-2022 Antibody screen P[facility] 2 Work Phone: Comment on above: Order Comment: Speci men Type: BLOOD SPECIMEN Ordering Facility: [facility] Address: [address] [place] [address] Performed By: #### T SCR30 #### [facility] [place] [id number] [address] [place] [address] Start: 05-02-2022 Antibody screen rbc each serum technique Renato Mullen MD Work Phone: Start: 05-02-2022 Blood count complete automated Renato Mullen MD Work Phone: Start: 05-02-2022 Iadna s aureus ampli fied probe tq Renato Mullen MD Work Phone: Start: 11-10-2009 Colonoscopy [facility] 2 Work Phone: Plan of Treatment Date Care Activity Detail Author Start: 05-02-2025 DIABETES SCREEN DIABETES SCREEN [facility] Start: 03-27-2022 ADVANCE DIRECTIVE DISCUSSION ADVANCE DIRECTIVE DISCUSSION [facility] Start: 03-27-2022 DEPRESSION ASSESSMENT DEPRESSION ASS ESSMENT [facility] Start: 11-25-2021 Influenza vaccination INFLUENZA (#1) [facility] Start: 2013 PNEUMOCOCCAL: 65+ (1 - PCV) PNEUMOCOCCAL: 65+ (1 - PCV) [facility] Start: 11-10-2010 Colonoscopy COLONOSCOPY [facility] Start: 11-10-2010 COLORECTAL CANCER SCREENING COLORECTAL CANCER SCREENING [facility] Start: 1998 SHINGRIX VACCINE (1 of 2) SHINGRIX V ACCINE (1 of 2) [facility] Start: 1993 COLOGUARD (FIT-DNA) COLOGUARD (FIT-D NA) [facility] Start: [address] COLONOGRAPHY [facility] Start: 1993 FECAL OCCULT BLOOD FECAL OCCULT BLOO D [facility] Start: 1993 SIGMOIDOSCOPY SIGMOIDOSCOPY [facility] Start: 07-31-1983 LIPID SCREEN LIPID SCREEN [facility] Start: 07-31-1967 Urine microalbumin profile DTAP,TDAP ,TD (1 - Tdap) [facility] Start: 1966 HEPATITIS C SCREENING HEPATITIS C SC REENING [facility] Start: 01-30-1949 COVID-19 VACCINE (#1) COVID-19 VACCI NE (#1) [facility] Payers Date Payer Category Payer Self-pay 2022 Unknown HOSPITAL/MEDICAL GENERIC MEDICAL GENERIC [id number] 2022-Present [phone] [address] [place] [address] Indemnity [id number] 2013 Medicare MEDICARE MEDICAR E A AND B [id number] 2013-Present [phone] [address] [address] [place] [address] Medicare [id number] 2013 Medicare [id number] 2013 Unknown [id number] Unknown [id number] Unknown [id number] Unknown [id number] [id number] Unknown [id number] Unknown [id number] [id number] Unknown [id number] [id number] Unknown [id number] [id number] Unknown [id number] [id number] Unknown [id number] [id number] Unknown [id number] [id number] Unknown [id number] [id number] Unknown [id number] [id number] Unknown [id number] [id number] Unknown [id number] [id number] Unknown [id number] [id number] Unknown [id number] [id number] Social History Date Type Detail Facility Start: 04-29-2022 Tobacco smoking status NHIS Never smoked tobacco [facility] Start: 04-29-2022 Tobacco use and exposure Smokeless tobacco non-user [facility] Start: 05-02-2022 Alcohol intake Current non-dr shrinker of alcohol (finding) [facility] Start: 1950 Sex Assigned At Not on file [facility] NEGATED: Highlighted rowStart: NINF History of tobacco use Passive smoker [facility] Clinical Notes 05-02-2022 to 05-24-2022 Cheryle Fraga MD - 05/02/2022 12:22 PM Holger Laura APRN.ROSANNA - 05/02/2022 11:30 AM EST Note Date & Type Note Facility 05-24-2022 Note HNO ID: [id number] Author: Rosalba Buckley RN Service: Care Management Author Type: Registered Nurse Type: Care Mgt Progress Note Filed: 05/24/2022 5:13 PM Note Text: CARE MANAGEMENT UTILIZATION REVIEW COMMITTEE PROVIDER LIABLE (Admission Status Discrepancy Review) Admission Date: 05/24/2022 Patient's Initial Order is: Inpatient Date Received: May 24, 2022 Date Reviewed: May 24, 2022 Under the authority of the Utilization Management Plan, the Physician Advisor, Dr. Mohinder Perry, has reviewed the medical record of the above patient. The following recommendation has been made by the Physician Advisor, based upon the current available medical information as of the date of this determination. The patient is appropriate for: Observation Rationale for this decision: Lack of medical necessity for inpatient admission and less than 2 midnight stay SIGNATURE: Rosalba Buckley RN PATIENT NAME: Angus Esteves DATE: May 24, 2022 TIME: 5:13 PM Disclaimer: The information in this determination is to be used for utilization management purposes only. The information and recommendation is made pursuant to Medicare Hospital Conditions of Participation (442 CFR Part 482) and is neither a judgment nor an assessment with regard to the appropriateness or quality of the clinical care. Nothing in this document may be used to limit clinical services provided to the above named patient. This form should be used as one part of the process utilized to ensure compliance with [facility] policy regarding Inpatient Admission and Observation Services. The definitions of Inpatient and Observation used in making the determination above are those provided in Medicare Benefit Policy Manual Chapter 1, Section 1 and 10, Chapter 6, Section 20, and the Medicare Claims Processing Manual Chapter 1, Section 50.3 and Chapter 4, Section 290. This recommendation should be considered as only one factor in determining the patient's final level of service along with other pertinent documentation such as the treating physician's order as documented evidence of concurrence. [facility] 05-24-2022 Note HNO ID: [id number] Author: Riya Monzon APRN.CHEMIST HELPER Service: ? Author Type: Nurse [employer] Type: Anesthesia Procedure Notes Filed: 05/24/2022 9:28 AM Note Text: ANESTHESIOLOGY PROCEDURE NOTE Airway General Information Procedure Start Time/Medication Administration: 05/24/2022 9:27 AM Patient location during procedure: OR Timeout Performed Pre-procedure: timeout performed Consent Obtained: Yes Patient identity confirmed: arm band and patient Staffing Anesthesiologist: Esa Hui DO CHEMIST HELPER: Riya Monzon APRN.CHEMIST HELPER Performed by: MANUEL Indications and Patient Condition Indications for airway management: anesthesia Preoxygenated: yes anesthesia circuit Patient position: sniffing Method: modified rapid sequence Cricoid Pressure: Yes Final Airway Details Final airway type: endotracheal airway Final Endotracheal Airway: ETT Cuffed: yes Successful intubation technique: direct laryngoscopy Endotracheal tube insertion site: oral Blade: Annalee Blade size: #3 ETT size (mm): 7.5 Measured from: lips Measurement (cm): 24 Placement verified by: chest auscultation Cormack-Lehane Classification: grade III - view of epiglottis only Number of attempts at approach: 1 SIGNATURE: Riya Monzon APRN.CHEMIST HELPER PATIENT NAME: Angus Esteves DATE: May 24, 2022 TIME: 9:27 AM CSN: [id number] [facility] 05-24-2022 Note HNO ID: [id number] Author: Esa Hui DO Service: Anesthesiology Author Type: Physician Type: Anesthesia Procedure Notes Filed: 05/24/2022 8:50 AM Note Text: ANESTHESIOLOGY PROCEDURE NOTE Peripheral Nerve Block General Information Procedure Start Time/Medication Administration: 05/24/2022 8:45 AM Patient location during procedure: pre-op Timeout Performed Pre-procedure: timeout performed Consent Obtained: Yes Patient identity confirmed: arm band and patient Reason for block: post-op pain management/at surgeon's request Staffing Anesthesiologist: Esa Hui DO Performed by: anesthesiologist Preparation Sterility Preparation: hand hygiene performed prior to procedure, sterile gloves, drapes, and procedure tray, surgical cap used, mask used, skin prep agent completely dried prior to procedure Site Prep: Chloraprep Pre-Procedure Neuro Exam Location: LUE Sensory: intact Motor: intact Procedure Details Patient Position: supine Monitoring: Pulse OX, EKG and NIBP Block Type Upper Extremity: brachial plexus Approach: interscalene Laterality: left Injection Technique: single-shot Ultrasound Guided: Yes Image in Chart: yes Needle Needle Type: echogenic and stimulating Needle Gauge: 22 G Needle Length: 50 mm Needle Localization: anatomical landmarks and ultrasound Assessment Injection assessment: negative aspiration, no paresthesia on injection, incremental injection and local visualized surrounding nerve on ultrasound Paresthesia: none Post-Procedure Neuro Exam Expected Regional Anesthesia: Yes Medications Administered bupivacaine liposome (PF) 1.3 % (13.3 mg/mL) injection (EXPAREL) - peripheral nerve block 133 mg - 05/24/2022 8:47:00 AM bupivacaine (PF) 0.5 % (5 mg/mL) injection - peripheral nerve block 10 mL - 05/24/2022 8:47:00 AM SIGNATURE: Esa Hui DO PATIENT NAME: Angus Esteves DATE: May 24, 2022 TIME: 7:28 AM CSN: [id number] [facility] 05-23-2022 Note HNO ID: [id number] Author: Aleena Rodriguez RN Service: ? Author Type: Registered Nurse Type: Progress Notes Filed: 05/23/2022 2:19 PM Note Text: PRE-PROCEDURE INSTRUCTIONS TO PREPARE FOR YOUR PROCEDURE: Your arrival time for your procedure is 0730. Do NOT eat any solid foods after MIDNIGHT the night prior to your procedure - this includes gum or mints. You can drink clear liquids* up until 0530, which is 2 hours before your arrival time. *Clear liquids = water, carbohydrate drink (sports drink that is clear or yellow in color), Ensure Pre-Surgery (given by EMILIA or lois Loyd), fruit juice without pulp (apple/cranberry), clear tea, black coffee (no cream). NO ALCOHOL. Shower the morning of the procedure, put on clean clothes, and have clean sheets for your bed to help prevent infection after your procedure. Leave all valuables such as jewelry including rings, piercings, wallets, and purses at home. Wear comfortable, loose-fitting clothing. If you wear glasses or contacts, please bring a case. SPECIAL INSTRUCTIONS: If instructed, bring your first voided urine specimen with you. If you were provided skin preparation to use prior to your procedure, complete this as directed. If you were provided Ensure Pre-Surgery drink, you need to drink this at 0530. This should be consumed quickly (in less than 5 minutes, rather than sipped over time) If you use crutches or a walker, bring them with you. If you have a home CPAP/BIPAP machine, bring it with you. If you were instructed to complete a fleets enema or bowel prep, complete as directed. Bring copy of Living Will/Power of Tub Mender. Do not smoke or chew. If you use tobacco, quit or at least cut down before surgery. Do not smoke or chew after midnight the day before your surgery. This effects bleeding, infection, healing, and so much more. Do not take any Diet or Herbal Supplements 2 weeks prior to your surgery date. Please notify your physician if there is any change in your physical condition such as a cold, cough, fever, sore throat, or skin irritation near the surgical site. Visitors under the age of 14 are restricted in the Surgery Center. UPON ARRIVAL: Access to [facility] is located on [address] [employer] parking is available for your convenience from 5am-5pm- there is a $5.00 charge for this service. Take the elevators directly inside the entrance to the 1st Floor Surgery Lobby. Sign in at the podium located to the left when you get off the elevators. A payment may be expected at the time of service. One visitor may come back to the preoperative area with you. The preoperative staff will be reviewing your medical history, please let them know if you prefer not to have a visitor with you during this time. Once you are ready for surgery, two visitors at a time are permitted in your preoperative room. PATIENT MEDICATION INSTRUCTIONS Please read below carefully for your personalized instructions. Medications: If you are on blood thinner or anticoagulants including aspirin, please confirm with your surgical team on when to stop these medications. Unless instructed differently by your surgical team, stay on all of your medications until your surgery. Pre-Surgery Med Instructions Medication Instructions losartan (COZAAR) 50 mg tablet Do not take the morning of surgery metoprolol succinate ER (TOPROL XL) 100 mg Take morning of surgery with a sip of water, no other fluids lamoTRIgine (LAMICTAL) 200 mg tablet Take morning of surgery with a sip of water, no other fluids aspirin, enteric coated (ASPIRIN, ENTERIC COATED) 81 mg EC tablet Follow Surgeon's instructions hydroCHLOROthiazide (HYDRODIURIL, ESIDRIX) 25 mg tablet Do not take the morning of surgery rOPINIRole (REQUIP) 0.5 mg tablet Cholecalciferol, Vitamin D3, 50 mcg (2,000 unit) cap melatonin 10 mg cap quetiapine fumarate(SEROQUEL 200 MG TAB) tamsulosin hcl(FLOMAX 0.4 MG 24 HR CAP) If you have any medication changes between receiving these instructions and your surgery date, please provide this updated information with the nurse who calls you the week day prior to your surgical procedure so we can update your list and provide you with updated instructions for the morning of your procedure. [facility] 05-11-2022 Note HNO ID: [id number] Author: Ambar Laura APRN.CNP Service: ? Author Type: Nurse Practitioner Type: Progress Notes Filed: 05/11/2022 2:42 PM Note Text: Summary: medical clearance Shahana provided medical clearance stating medically optimized [facility] 05-02-2022 Note HNO ID: [id number] Author: Cheryle Fraga MD Service: ? Author Type: Physician Type: Progress Notes Filed: 05/03/2022 3:14 PM Note Text: Summary: DOS MEDS PATIENT MEDICATION INSTRUCTIONS Please read below carefully for your personalized instructions. Medications: If you are on blood thinner or anticoagulants including aspirin, please confirm with your surgical team on when to stop these medications. Unless instructed differently by your surgical team, stay on all of your medications until your surgery. Pre-Surgery Med Instructions Medication Instructions losartan (COZAAR) 50 mg tablet Do not take the morning of surgery metoprolol succinate ER (TOPROL XL) 100 mg Take morning of surgery with a sip of water, no other fluids lamoTRIgine (LAMICTAL) 200 mg tablet Take morning of surgery with a sip of water, no other fluids aspirin, enteric coated (ASPIRIN, ENTERIC COATED) 81 mg EC tablet Follow Surgeon's instructions hydroCHLOROthiazide (HYDRODIURIL, ESIDRIX) 25 mg tablet Do not take the morning of surgery rOPINIRole (REQUIP) 0.5 mg tablet Cholecalciferol, Vitamin D3, 50 mcg (2,000 unit) cap melatonin 10 mg cap quetiapine fumarate(SEROQUEL 200 MG TAB) tamsulosin hcl(FLOMAX 0.4 MG 24 HR CAP) If you have any medication changes between receiving these instructions and your surgery date, please provide this updated information with the nurse who calls you the week day prior to your surgical procedure so we can update your list and provide you with updated instructions for the morning of your procedure. [facility] 05-02-2022 Note HNO ID: [id number] Author: Ambar Laura APRN.ROSANNA Service: ? Author Type: Nurse Practitioner Type: Progress Notes Filed: 05/03/2022 3:14 PM Note Text: LTSA 05/24 [place] 71yo obese male, nonsmoker. PMH: HTN, bipolar, OCD, ?GIB. On ASA- to d/w PCP when to hold. [facility] APPOINTMENT: ([place] 05/02/22): I met Greco today in [facility] with his daughter. He had other shoulder replaced with Ruben 4 years ago, no problems with block/anesthesia. He has an excellent functional capacity without CV issues. He uses his CPAP almost every night and admits that it makes a big difference in his alertness when he uses it. EKG: NSR, 1st degree AVB 63 bpm. 153/82 - 63 - 18 - 96% sat RA. PCP Shahana in [place]. 05/03 ROSANNA Laura: A1C 5.3, NEG SA/MRSA, B+ CBC Latest Ref Rng AND Units 05/02/2022 WBC 3.70 - 11.00 k/uL 4.78 RBC 4.20 - 6.00 m/uL 4.45 HEMOGLOBIN 13.0 - 17.0 g/dL 14.0 HEMATOCRIT 39.0 - 51.0 % 39.5 MCV 80.0 - 100.0 fL 88.8 MCH 26.0 - 34.0 pg 31.5 MCHC 30.5 - 36.0 g/dL 35.4 RDW-CV 11.5 - 15.0 % 12.2 PLATELETS 150 - 400 k/uL 195 MPV 9.0 - 12.7 fL 9.2 CMP Latest Ref Rng AND Units 05/02/2022 SODIUM 136 - 145 mmol/L 140 POTASSIUM 3.5 - 5.1 mmol/L 4.2 CHLORIDE 98 - 107 mmol/L 106 CO2 21 - 32 mmol/L 29 GLUCOSE 70 - 100 mg/dL 95 BUN 7 - 26 mg/dL 31(H) CREATININE 0.50 - 1.40 mg/dL 1.17 EGFR >=60 mL/min/1.73m? 66 PROTEIN, TOTAL 6.0 - 8.5 g/dL 6.7 ALBUMIN 3.2 - 5.0 g/dL 3.8 CALCIUM, TOTAL 8.5 - 10.5 mg/dL 9.9 BILIRUBIN, TOTAL 0.2 - 1.0 mg/dL 0.4 AST 8 - 34 U/L 22 ALT 13 - 61 U/L 24 ALKALINE PHOSPHATASE 45 - 117 U/L 85 [facility] 05-02-2022 History of Presen t illness Narrative Summary: DOS MEDS PATIENT MEDICATION INSTRUCTIONS Please read below carefully for your personalized instructions. Medications: If you are on blood thinner or anticoagulants including aspirin, please confirm with your surgical team on when to stop these medications. Unless instructed differently by your surgical team, stay on all of your medications until your surgery. Pre-Surgery Med Instructions Medication Instructions losartan (COZAAR) 50 mg tablet Do not take the morning of surgery metoprolol succinate ER (TOPROL XL) 100 mg Take morning of surgery with a sip of water, no other fluids lamoTRIgine (LAMICTAL) 200 mg tablet Take morning of surgery with a sip of water, no other fluids aspirin, enteric coated (ASPIRIN, ENTERIC COATED) 81 mg EC tablet Follow Surgeon's instructions hydroCHLOROthiazide (HYDRODIURIL, ESIDRIX) 25 mg tablet Do not take the morning of surgery rOPINIRole (REQUIP) 0.5 mg tablet Cholecalciferol, Vitamin D3, 50 mcg (2,000 unit) cap melatonin 10 mg cap quetiapine fumarate(SEROQUEL 200 MG TAB) tamsulosin hcl(FLOMAX 0.4 MG 24 HR CAP) If you have any medication changes between receiving these instructions and your surgery date, please provide this updated information with the nurse who calls you the week day prior to your surgical procedure so we can update your list and provide you with updated instructions for the morning of your procedure. LTSA 05/24 Hellmann 71yo obese male, nonsmoker. PMH: HTN, bipolar, OCD, ?GIB. On ASA- to d/w PCP when to hold. [facility] APPOINTMENT: ([place] 05/02/22): I met Angus today in [facility] with his daughter. He had other shoulder replaced with Ruben 4 years ago, no problems with block/anesthesia. He has an excellent functional capacity without CV issues. He uses his CPAP almost every night and admits that it makes a big difference in his alertness when he uses it. EKG: NSR, 1st degree AVB 63 bpm. 153/82 - 63 - 18 - 96% sat RA. PCP Shahana in [place]. 05/03 ROSANNA Laura: A1C 5.3, NEG SA/MRSA, B+ CBC Latest Ref Rng & Units 05/02/2022 WBC 3.70 - 11.00 k/uL 4.78 RBC 4.20 - 6.00 m/uL 4.45 HEMOGLOBIN 13.0 - 17.0 g/dL 14.0 HEMATOCRIT 39.0 - 51.0 % 39.5 MCV 80.0 - 100.0 fL 88.8 MCH 26.0 - 34.0 pg 31.5 MCHC 30.5 - 36.0 g/dL 35.4 RDW-CV 11.5 - 15.0 % 12.2 PLATELETS 150 - 400 k/uL 195 MPV 9.0 - 12.7 fL 9.2 CMP Latest Ref Rng & Units 05/02/2022 SODIUM 136 - 145 mmol/L 140 POTASSIUM 3.5 - 5.1 mmol/L 4.2 CHLORIDE 98 - 107 mmol/L 106 CO2 21 - 32 mmol/L 29 GLUCOSE 70 - 100 mg/dL 95 BUN 7 - 26 mg/dL 31(H) CREATININE 0.50 - 1.40 mg/dL 1.17 EGFR >=60 mL/min/1.73m 66 PROTEIN, TOTAL 6.0 - 8.5 g/dL 6.7 ALBUMIN 3.2 - 5.0 g/dL 3.8 CALCIUM, TOTAL 8.5 - 10.5 mg/dL 9.9 BILIRUBIN, TOTAL 0.2 - 1.0 mg/dL 0.4 AST 8 - 34 U/L 22 ALT 13 - 61 U/L 24 ALKALINE PHOSPHATASE 45 - 117 U/L 85 documented in this encounter [facility] Evaluation note Diagnosis Preop testing- Primary Preoperative examination, unspecified 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 Unspecified arthropathy, shoulder region [facility] Procedure (Routine) - Closed Specialty Diagnoses / Procedures Referred By Contac t [facility] Diagnoses Preop testing Procedures ECG COMPLETE ECG ROUTINE ECG W/LEAST 12 LDS W/I&R Renato Mullen Jr., MD [address] [place] [address] [facility] [address] [place] [address] Referral ID Status Reason Start Date Expiration Date V isits Requested Visits Authorized [id number] Closed Auto-Generated Referral Financial Clearance Required - OON Payor Patient Cleared - INN Insurance Found 05/02/2022 04/28/2023 [facility] Narrative* Outpatient Procedure (Routine) - Closed Specialty Diagnoses / Procedures Referred By Contac t [facility] Diagnoses Preop testing Procedures ECG COMPLETE ECG ROUTINE ECG W/LEAST 12 LDS W/I&R Renato Mullen Jr., MD [address] [place] [address] [facility] [address] [place] [address] Referral ID Status Reason Start Date Expiration Date V isits Requested Visits Authorized [id number] Closed Auto-Generated Referral Financial Clearance Required - OON Payor Patient Cleared - INN Insurance Found 05/02/2022 04/28/2023 1 1 [facility] Summary Purpose Family History No Family History Records FoundNo Family History Records FoundNo Family History Records Found Advance Directives No Advanced Directives Records FoundNo Advanced Directives Records FoundNo Advanced Directives Records Found Additional Source Comments (unrecognized sect ion and content) No Status Records FoundNo Status Records FoundNo Status Records Found INFORMATION SOURCE (unrecogn ized section and content) DATE CREATED AUTHOR 07/21/2020 [facility] ([place]) DATE CREATED AUTHOR AUTHOR'S ORGANIZ ATION 06/02/2022 [facility] DATE CREATED AUTHOR AUTHOR'S ORGANIZ ATION 09/24/2024 [facility] Source Comments (unrecognize d section and content) In the event this informatio n is protected by the Federal Confidentiality of Alcohol and Drug Abuse Patient Records regulations: The Federal rules restrict any use of the information to criminally investigate or prosecute any alcohol or drug abuse patient.[facility] Care Teams (unrecognized sec tion and content) Gearman Relationship Specialty Start Date End Date Rosie Rodriguez [address] [place] [address] PCP - General Family Medicine 05/02/22 FOR RECORDS PERTAINING TO PATIENTS WHO ARE OR HAVE BEEN ENROLLED IN A CHEMICAL DEPENDENCY/SUBSTANCEABUSE PROGRAM, SOME INFORMATION MAY BE OMITTED. This clinical summary was aggregated from multiple sources. Caution should be exercised in using it in the provision of clinical care. This summary normalizes information from multiple sources, and as a consequence, information in this document may materially change the coding, format and clinical context of patient data. In addition, data may be omitted in some cases. CLINICAL DECISIONS SHOULD BE BASED ON THE PRIMARY CLINICAL RECORDS. [facility] [employer] provides no warranty or guarantee of the accuracy or completeness of information in this document.
== END | disposition home or self-care (01) ==
PROVIDERS: PCP Family Medicine; Referring Provider Family Medicine; Visit Provider Family Medicine
DX: R06.02 Shortness of breath (principal)
CPT/HCPCS: 71275; 74174; Q9967; A4216

== ENCOUNTER → 2025-01-01 | Outpatient (CLI) | payer MEDICARE, OTHER, SELFPAY ==
--- NOTE | 2025-01-01 08:04 | ECHOCS_ITS ---
Reason For Study Reason For Study: Aortic Stenosis Procedure This was a 2D Doppler, Color Flow transthoracic echocardiogram. Contrast injection was performed. Exam performed in department. Left Ventricle Normal LV size. Moderate concentric left ventricular hypertrophy. Left ventricular systolic function is normal. The left ventricular ejection fraction is 60 %. Stage 1 diastolic dysfunction. No regional wall motion abnormalities noted. Right Ventricle Normal RV size. Normal systolic function. Atria Normal left atrium. Normal right atrium. Mitral Valve Normal mitral valve. Mild (1+) eccentric mitral valve insufficiency. Tricuspid Valve Normal tricuspid valve. Aortic Valve Trisinus/trileaflet aortic valve. Moderate focal aortic valve calcification. Peak aortic valve gradient 55 mmHg. Mean aortic valve gradient 34 mmHg. Moderate to severe aortic stenosis. Trivial eccentric aortic valve insufficiency. Pulmonic Valve Normal pulmonic valve. Great Vessels Normal aortic root. The pulmonary artery is normal size. Inferior vena cava collapse with respiration. Pericardium/Pleural No pericardial effusion. Medication 22 gauge I.V. with prn adaptor inserted into right arm. Diluted definity 1.5ml given slow IV push to enhance endocardial definition. MMode/2D Measurements & Calculations LVIDd: 4.4 cm IVSd: 1.4 cm LVOT diam: 2.1 cm LVIDs: 2.9 cm LVPWd: 1.3 cm RVDd: 3.2 cm FS: 33.9 % LVOT area: 3.5 cm2 Ao root diam: 4.0 cm LAV(MOD-bp): 63.9 ml LVAd ap4: 35.9 cm2 LAV(MOD-bp) Indexed: 31.0 ml/m2 LVLd ap4: 8.9 cm LAV(MOD-sp2): 65.2 ml EDV(MOD-sp4): 116.9 ml LAV(MOD-sp4): 56.3 ml EDV(sp4-el): 123.2 ml LVAs ap4: 20.3 cm2 LVLs ap4: 7.4 cm ESV(MOD-sp4): 46.2 ml ESV(sp4-el): 47.1 ml EF(MOD-sp4): 60.4 % EF(sp4-el): 61.8 % SV(MOD-sp4): 70.6 ml SV(sp4-el): 76.2 ml LA A4 area: 20.8 cm2 SI(MOD-sp4): 34.2 ml/m2 LA dimension(2D): 4.3 cm RA A4 area: 12.7 cm2 TAPSE: 2.1 cm Time Measurements MV dec time: 0.27 sec Doppler Measurements & Calculations MV E max jesse: 65.0 cm/sec Lat Peak E' Jesse: 7.5 cm/sec Med Peak E' Jesse: 6.5 cm/sec MV A max jesse: 89.3 cm/sec E/E' lat: 8.7 E/E' med: 10.0 MV E/A: 0.73 MV V2 max: 102.6 cm/sec MV P1/2t max jesse: 78.4 cm/sec Ao V2 max: 368.9 cm/sec MV max P.2 mmHg MV P1/2t: 100.9 msec Ao max P.6 mmHg MV V2 mean: 47.8 cm/sec MV dec slope: 227.7 cm/sec2 Ao V2 mean: 278.5 cm/sec MV mean P.1 mmHg MVA(P1/2t): 2.2 cm2 Ao mean P.3 mmHg MV V2 VTI: 36.9 cm Ao V2 VTI: 93.2 cm MVA(VTI): 2.6 cm2 AV (velocity ratio): 0.30 ILEANA(I,D): 1.0 cm2 ILEANA(V,D): 0.81 cm2 AI max jesse: 350.5 cm/sec LV V1 max: 86.6 cm/sec SV(LVOT): 96.0 ml AI max P.2 mmHg LV V1 max P.0 mmHg LV V1 mean P.4 mmHg AI dec slope: 75.2 cm/sec2 LV V1 mean: 52.2 cm/sec AI P1/2t: 1366 msec LV V1 VTI: 27.7 cm PA V2 max: 80.3 cm/sec ECHO/Echo Complete W/ Contrast Interpretation Summary Normal LV size. Left ventricular systolic function is normal. The left ventricular ejection fraction is 60 %. Moderate concentric left ventricular hypertrophy. Stage 1 diastolic dysfunction. Moderate focal aortic valve calcification. Mean aortic valve gradient 34 mmHg. Contrast injection was performed. Ordering Physician: Pierce Cummings Referring Physician: Pierce Cummings Performed By: Db Bledsoe RCS
== END | disposition home or self-care (01) ==
LOC: CVS 07:55
PROVIDERS: PCP Family Medicine; Referring Provider Psychiatry & Neurology Neurology; Visit Provider Psychiatry & Neurology Neurology
DX: I35.0 Nonrheumatic aortic (valve) stenosis (principal)
CPT/HCPCS: 93306; Q9957; A4216; C8929

== ENCOUNTER 2025-01-24 09:00 | Outpatient (RCR) | payer MEDICARE, OTHER, SELFPAY ==
--- NOTE | 2024-06-25 11:08 | HP.OTEVAL_ITS ---
Patient's Visit Information Visit Information Visit Information: TABITHA ESTEVES is a 73 year old M, referred to Occupational Therapy by Dr. Fracisco García MD, with a diagnosis of CVA. Date of Evaluation: 06/25/24 Occupational Therapist: Vira Presley, ROBERTO/Emi, CHT Subjective Subjective: This 73 year old male was seen for OT eval with dx of CVA. pt arrives with following PT evaluation. pts states while vacationing in [place] pt suffered a CVA about 10 weeks ago. Pt was tsf to [place] to [facility] to undergo rehab. Pt just released on Monday06/21/24. pts states prior to leaving for [place] pt was working with a personal financial counselor to improve his physical health. 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 pt was IND with all ADLs and IADLs and driving prior to his CVA. pt states he would like to get his right UE strength back to be able to dress/ eat and write more at his PLOF. ADLs Comments: pt lives with in 1 story home with 2nd story but does not go up there. pt has shower chair pt states dressing is ok - slower but able to perform pt states slower with grooming and now uses electric razer- right hand slow motion and feeling of being numb ROM Shoulder: right 100 left 150 Elbow: right/left WNL Forearm: right supination 40* left WNL Strength Shoulder: flexion right 9# left 13# Elbow: biceps 14# left 21# triceps R 12# left 24# Tar And Ammonia Pump Operator: right 45# left 75# Lateral Pinch: right 12# left 20# Tripod Pinch: right 10# left 18# Strength Comments: pt demo with right side weakness limiting pts functional ADLS Sensation Thumb: right/left 2.83 interpretation Normal sensation Index: right/left 2.83 interpretation Normal sensation Middle: right/left 2.83 interpretation Normal sensation Ring: right/left 2.83 interpretation Normal sensation Little: right/left 2.83 interpretation Normal sensation Nine Hole Peg Right: 49.28 sec. Left: 28.00 sec. In-Hand Manipulation Finger to Palm Translation: Severe - Right and Normal - Left Palm to Finger Translation: Severe - Right and Normal - Left Comments: pt demo with compromised FMS limiting writing Quick DASH-Disab of Arm,Shoulder& Hand Quick DASH Score: 72.7250 Goals Goal:: Pt will demo a increase in fit 2 peak by 10# to increase pts ind. with ADLs by d/c pt will demo a increase in right technology architect strength to 65# or greater to increase pts ind. with ADL and IADLs by d.c Goal:: pt will demo a increase in right shoulder flexion by 30* to increase pts ind. with ADLs and IADLs by d.c Goal:: pt will demo the ability to write 5 sentences with good legibility by d.c pt will demo the ability to manipulate 10 coins from finger- palm & palm to finger tips without dropping coins to increase pts ability to manipulate coins by d/c. pt will demo the ability to tie shoes IND by dc pt will demo a decrease in 9-hole peg testing by 15 sec. or greater to indicate increase in FMS by d/c Rehabilitation General Assessment: pt demo with a decline in functional performance of ADLs, limited fine motor skills limiting pts ind. with self feeding/ writing and shaving. Pt weakness and slow motor processing has limited pt with ADLs and IADLs. pt would benefit from further skilled OT services 2-3x week for 8 weeks to return pt to his PLOF. pt and pts demo understanding and agree to POC. Rehabilitation Potential: Good Anticipated Interventions Anticipated Interventions: A/AAROM/PROM, Strengthening, Fine Motor Coord/Morgan and Neuro Reeducation Visit Plan Frequency: 2-3x /Week Duration: 4 Weeks TEXT: Thank you for the opportunity to evaluate your patient. For Medicare and Medicare HMO plans, please review the plan of care and approve it. It will need to be FAXED BACK to us at [phone] for Medicare purposes. Please let me know if there are questions or concerns regarding this plan of care. Physician Signature: Date:
--- NOTE | 2024-06-26 11:20 | HP.PTEVAL_ITS ---
Patient's Visit Information Visit Information Visit Information: TABITHA ESTEVES is a 73 year old M referred to Physical Therapy by Dr. Fracisco García MD with a diagnosis of CVA with R sided weakness. Date of Evaluation: 06/25/24 Physical Therapist: Abbe Moyer DPT Visit Plan Frequency: 3x /Week Duration: 6 Weeks Plan: 1) SL balance on RLE, dynamic balance on multiple surfaces 2) functional strengthening 3) progressive walking program 4) progress to gym strengthening in order to progress to this once done with PT. Subjective Subjective: Pt. is here today for his initial evaluation with diagnosis of CVA. Pt. was in [place] had a CVA with R sided weakness. Pt. reports coming back home this past weekend after having a stay at local SNF. Pt. reports having no tingling, but occasional numbness in his R leg. Pt. is now walking without AD. Pt. had marked R sided weakness, but has improved. He still reports some weakness, but more so in his hand than his leg. Pt. repots being able to complete most activities at home. He is not back to driving, but has started light progressive walking to [employer]. 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 He does have a history of B TSA limited end range B shoulder ROM and some intermittently low back pain. Objective Objective: POSTURE: fairly normal, normal SARAH in stance. PALPATION: Pt. has no pain with palpation of BLEs. No marked edema noted. NEURO: Pt. has slight dulled sensation on R LE. Pt. has normal DTR of BLEs. Pt. is able to rise on heels and toes without issues. ROM: trunk flexion min loss NE, extension min loss NE, SB min loss NE, rotation nil loss NE bilt. Pt. has very tight B HS and hip flexors. Slight tightness in B calves. MMT: PT. has 5/5 symmetrical strength, except hip flexion RLE 17#, LLE 32.9#. GAIT: Pt. has decrease bilateral arm swing and decreased step length. No LOB noted. Pt. tends to walk in guarded posture. Balance/Special Test Scores Functional Gait Assessment Score: 17 % Disability: 43.3400 Lower Extremity Functional Score: 48 TUG Test Time Seconds: 13.5 30 Second Chair Rise Test Seconds: 11 Goals Goal 1:: LTG: pt. to be I with HEP. Goal Time Frame: 4-6 Weeks Goal 2:: LTG: pt. to complete TUG under 10sec without use of AD. Goal Time Frame: 4-6 Weeks Goal 3:: LTG: Pt. to have increased FGA to score of 23/30 indicating proper balance. Goal Time Frame: 4-6 Weeks Goal 4:: LTG: pt. to have symmetrical strength between BLEs. Goal Time Frame: 4-6 Weeks Goal 5:: LTG: Pt. to complete 6 MWT with distance of at least 1000' Goal Time Frame: 4-6 Weeks Rehabilitation Potential Physical Therapy Diagnosis: Pt. has signs and symptoms consistent with CVA with R sided effect. He has progressed well, but still has some weakness, difficulty with gait and balance. Rehabilitation Potential: Excellent Anticipated Interventions Patient/Client Instruction: Educate patient on: Condition, Plan of Care, Risk Factors and Benefits of Fitness Program For the Purpose of:: To foster healthy habits, To improve decision making, To facilitate caregiver knowledge, To improve self management, To prevent re-injury and To improve ability to perform tasks related to life management Therapeutic Exercise to Include: Strength training, Power training, Endurance training, Balance training, Coordination, Flexibilty training and Gait and locomotor training For the Purpose of:: To decrease pain, To increase ROM, To improve nutrient delivery to tissue, To increase oxygenation perfusion, To improve muscle performance and motor function, To improve ability to perform ADL's, To improve gait and locomotor functions and To improve health of tissue Text: Thank you for the opportunity to evaluate your patient. For Medicare and Medicare HMO plans, please review the plan of care and approve it. It will need to be FAXED BACK to us at [phone] for Medicare purposes. For Medicare only, by signing this I certify the plan of care. Please let me know if there are questions or concerns regarding this plan of care. Physician Signature: Date:
--- NOTE | 2024-07-17 10:24 | HP.OTREVAL ---
Re-Evaluation Intro: Dr. Fracisco García MD, It has been my pleasure to treat TABITHA ESTEVES over the last 11 visits for CVA. Please see the progress note below for an update on the occupational therapy plan of care! Subjective Subjective: pt arrives to session- states he is doing ok- feels his FMS are still behind and continues to say feeding himself continues to be a problem. Objective Objective/Function: fet2 peak force testing shoulder flexion 10.9# increase from 9# biceps 24# increase from 14# triceps 20 an increase from 12# right pharmacy scheduler strength 55# a increase from 45# right lateral pinch 14# increase from 12# right tripod pinch 10# same as eval 9-hole peg test 49.10 a decrease from 49.28 sec. pt has made gains with strength of biceps/triceps but continues to struggle with shoulder strength and pharmacy scheduler/pinch strength. Plan Plan Frequency: 2-3x /Week Duration: 4 Weeks Visits in this POC: (Insurance-$2410) 2-3x week for 4 weeks Plan: Continue POC:will increase his sessions to 60 min 2-3x week for 4 weeks Goals Goals Patient Goals: Regain Mobility, Regain Strength, Improve Fine Motor Skills, Use Hand/Wrist/Arm Normally Again, Be More Independent in ADLS, Resume Former Household Responsibilities (Cooking,Cleaning,Yard, etc.) and Resume Hobbies Goal:: Pt will demo a increase in fit 2 peak by 10# to increase pts ind. with ADLs by d/c pt will demo a increase in right pharmacy scheduler strength to 65# or greater to increase pts ind. with ADL and IADLs by d.c (progressing) Goal:: pt will demo a increase in right shoulder flexion by 30* to increase pts ind. with ADLs and IADLs by d.c Goal:: pt will demo the ability to write 5 sentences with good legibility by d.c pt will demo the ability to manipulate 10 coins from finger- palm & palm to finger tips without dropping coins to increase pts ability to manipulate coins by d/c. pt will demo the ability to tie shoes IND by dc pt will demo a decrease in 9-hole peg testing by 15 sec. or greater to indicate increase in FMS by d/c Goal:: Pt will demo the ability to simulate using feeding utensils with increased fluid motion to not spill food by d.cAyse Anticipated Interventions Anticipated Interventions Anticipated Interventions: A/AAROM/PROM, Strengthening, Fine Motor Coord/Morgan and Neuro Reeducation Re-Evaluation Ending Re-evaluation ending: Please do not hesitate to contact me at [phone] by phone or if you have questions or concerns regarding this new plan of care! Sincerely, Vira Presley, OTR/L, CHT
--- NOTE | 2024-07-26 11:04 | HP.PTREVAL ---
Re-Evaluation Intro: Dr. Fracisco García MD, It has been my pleasure to treat TABITHA ESTEVES over the last 15 visits for CVA with R sided weakness. Please see the progress note below for an update on the physical therapy plan of care! Subjective Subjective: Pt. reports overall doing better. Pt. reports being ~20% better overall. He feels like he might have regressed a bit with his R shoulder. Objective Objective/Function: TU.4 without use of AD. Pt. has greatest difficulty with directional changes. FGA 22/30 6 MWT : 1238 feet. MMT: RLE: ankle: DF 28.4#; knee: ext 36.4#, flex 28.7#; hip flex: 24.8#, abd 27.5# LLE: ankle DF: 29.9#; knee: ext 40.7#, flex 37.2#; hip: flex 32.1#, abd 29.9# 30sec sit to stand rep test 10 without use of UEs GAIT: Pt. ambulates with decreased bilateral step length. He also has he fatigues has decreased controlled eccentric DF. STAIRS: Pt. is able to negotiate with out HR with reciprocal pattern. Pt. does have some difficulty with eccentric lowering. Plan Plan Plan: Cont. to work on BLE strengthening, dynamic balance and multiple surfaces, Core strengthening. Add in SLS balance/control gait mechanics especially as he fatigues. Balance/Gait/Functional tests Balance/Special Test Scores Functional Gait Assessment Score: 22 % Disability: 26.6700 Lower Extremity Functional Score: 48 TUG Test Time Seconds: 12.4 Tug Test: <20 sec.=mostly independent 30 Second Chair Rise Test Seconds: 10 6 Minute Walk Test: 1238 feet Goals Goals Goal 1:: LTG: pt. to be I with HEP. Goal Time Frame: 4-6 Weeks Goal Progress: Progressing Goal 2:: LTG: pt. to complete TUG under 10sec without use of AD. Goal Time Frame: 4-6 Weeks Goal Progress: Progressing Goal 3:: LTG: Pt. to have increased FGA to score of 23/30 indicating proper balance. Goal Time Frame: 4-6 Weeks Goal Progress: Progressing Goal 4:: LTG: pt. to have symmetrical strength between BLEs. Goal Time Frame: 4-6 Weeks Goal Progress: Progressing Goal 5:: NEW GOAL: Pt. to complete 6 MWT with distance of at least 1500' Goal Time Frame: 4-6 Weeks Goal Progress: Progressing Goal 6:: LTG: Pt. to complete 30sec sit to stand rep test with at least 15 reps. Goal Time Frame: 4-6 Weeks Goal Progress: Progressing Anticipated Interventions Anticipated Interventions Patient/Client Instruction: Educate patient on: Condition, Plan of Care, Risk Factors and Benefits of Fitness Program For the Purpose of:: To foster healthy habits, To improve decision making, To facilitate caregiver knowledge, To improve self management, To prevent re-injury and To improve ability to perform tasks related to life management Therapeutic Exercise to Include: Strength training, Power training, Endurance training, Balance training, Coordination, Flexibilty training and Gait and locomotor training For the Purpose of:: To decrease pain, To increase ROM, To improve nutrient delivery to tissue, To increase oxygenation perfusion, To improve muscle performance and motor function, To improve ability to perform ADL's, To improve gait and locomotor functions and To improve health of tissue Re-Evaluation Ending Re-evaluation ending: Please do not hesitate to contact me at [phone] by phone or if you have questions or concerns regarding this new plan of care! Sincerely, Abbe Moyer DPT
--- NOTE | 2024-08-07 16:30 | HP.SP.EV_ITS ---
Visit History Visit Info Date of Eval: 08/07/24 Today is Visit #: 1 Hydrostatic Tubing Tester: AYLA History Attending Doctor: Referring Doctor: Reason for Referral: CVA. RX HERE Medical Diagnosis: Stroke Date of Onset of Diagnosis: 04-13-2024 Previous speech therapy: Yes Results: [facility]; Advanced from NPO/NG x1 week then "passed" MBSS in acute. Transitioned from pureed foods and "thickened" liquids to full regular diet and thin liquids prior to return to [place] around 05/13/24. "Somewhat" addressed vocal intensity and quality with sustained phonation. Other Relevant Medical History/Diagnoses/Surgery: Left CVA with right hemiparesis, dysphagia, dysphonia, depression Medications related to this diagnosis: See EMR Smoking Status: Never smoker Diagnosis Diagnosis: CVA dysphagia, dysphonia Pain Is pain an issue with your current prescribed condition?: No Personal Preferred language: Danish Patient Allergies Allergies Allergies: Allergies No Known Allergies Allergy (Verified 07/18/23 15:05) Subjective Dysphagia Symptoms Reported Symptoms/Problems with: Drooling, Coughing and Difficulty Swallowing Liquids Current Diet Solids Current Diet: Regular Current Diet Liquids Current Liquids: Thin Hawkins free water Protocol: No Comments Comments: -: Patient does not use straws as a personal preference. Objective Dysphagia Administered by Administered by: Self Thin Liquids Administred via: Cup Oral Transit: WNL Bolus clearance: significant clearance/minimal residue Gagging: No Cough: immediate and throat clear Pharyngeal phase: suspect pharyngeal deficits Patient Report: Coughing with thin water via cup with large volume successive sips only. Cough immediate and strong. Right labial flaccidity measures 12mm via labial goniometer, results in right anterior loss of liquid bolus 3/6 trials. Patient endorses drooling with neck in flexion. Pureed Administered via: Spoon Oral Preparation: lip or tongue seal bolus escape Oral Transit: WNL Bolus clearance: significant clearance/minimal residue Gagging: No Cough: none observed/unable to assess Pharyngeal phase: immediate laryngeal elevation Comments: Right buccal residue 2/5 trials. Clears with minimal verbal cues for subsequent dry, effortful swallow. Regular Oral Preparation: WNL Oral Transit: Delay > 1 seconds Bolus clearance: significant clearance/minimal residue Gagging: No Cough: immediate and throat clear Pharyngeal phase: suspect pharyngeal deficits Comments: Bolus prep and manipulation WFL with william cracker /. Minimal lingual residue clears with liquid wash, then results in immediate reflexive throat clear /, with patient reporting sensation of "a crumb trying to go down the wrong way". Impact Impact on Safety & Functioning: Risk for Aspiration Recommendations Modified Barium Swallow/Cookie Swallow Recommended: Yes Swallowing Treatment: Yes Diet Texture Recommendations Solids: Regular (Level 7) Liquids: Thin (Level 0) Other liquids: Thin Hawkins free water Protocol: No Safety Saftey Precautions/Swallowing Recommendations (Check all that Apply): Small Sips & Bites when Eating, No Straw, Multiple Swallows, Alternate Liquids & Solids and Other (Specify Below) Other: Upright position for all intake, exaggerated labial seal, effortful swallow Results Swallowing Within Normal Limits: No Swallowing Diagnosis: Oropharyngeal Phase Dysphagia (R13.12) Severity: Mild Reference: Neuro-QoL instrument Radiation Oncology Patient Plan Plan Plan: Patient self-referred to outpatient speech therapy services following CVA (03/2024) due exacerbation of dysphagia and dysphonia. Patient and spouse report increased coughing with liquids, and worsening of vocal quality. GREEN END DEPARTMENT SUPERVISOR instruct spouse per scheduling ENT consult for endoscopy, as required prior to initiating treatment, and patient is established patient of local ENT. Patient presents with mild oropharyngeal dysphagia requiring skilled ST 1x/wk x 16 weeks to address deficits in functional swallow via remediation and compensation. Patient to complete MBSS for assessment of pharyngeal integrity. GREEN END DEPARTMENT SUPERVISOR to obtain order. Recommendations Treatment Warranted: Yes Treatment Warranted: Dysphagia Progress Prognosis: Excellent Frequency Frequency: 1x/Week Duration: 4 Months Visits in this POC: 16 Patient/Family Goal Patient/Family Goal: Reduce/Eliminate coughing with liquids; stop drooling Goals that are Established Determination:: Goals will be added/modified as deemed necessary and appropriate. Therapy will be discontinued when results of re-evaluation indicate therapy is no longer needed or lack of progress has been documented. Goal #1-5 Goal #1: Patient will tolerate regular diet and thin liquids to facilitate adequate hydration/nutrition with optimum safety and efficiency of swallowing function without overt signs and symptoms of dysphagia or aspiration. Goal #2: Patient will independently utilize recommended compensatory swallowing techniques for dysphagia management to reduce the risk of pulmonary compromise with PO intake. Goal #3: Patient will independently complete prescribed pharyngeal strengthening exercises to facilitate improved muscle strength and coordination of swallow function. Goal #4: Patient will independently complete prescribed oral strengthening exercises to facilitate improved anterior liquid bolus containment and eliminate anterior loss of saliva 8/10 times. Education Patient has Indicated that the Following Identified Educational Needs: None The Patient has indicated that they have no educational or learning abilities that may effect their care.: Yes Patient Instruction Patient Education: Diagnosis, Treatment Plan, Goals, Safety Precautions, Diet Level and Home Exercise Program Person Taught: Patient and Significant Other Teaching Method: Discussion, Demonstration and Handout Response to teaching: Return Demonstration, Reinforcement Needed and Has Prior Knowledge
--- NOTE | 2024-08-23 10:17 | HP.PTREVAL ---
Re-Evaluation Intro: Dr. Fracisco García MD, It has been my pleasure to treat TABITHA ESTEVES over the last 20 visits for CVA with R sided weakness. Please see the progress note below for an update on the physical therapy plan of care! Subjective Subjective: Pt. reports falling the other day. He was walking over cinder blocks and caught his heel on one and fell. Pt. reports being okay, a little sore. Pt. has otherwise been doing well. He did the nustep to warm up prior to PT this date. He still has the greatest c/o is with his right hand. Gripping and using for dressing and eating is still difficult. Objective Objective/Function: MMT: previous: RLE: ankle: DF 28.4#; knee: ext 36.4#, flex 28.7#; hip flex: 24.8#, abd 27.5# LLE: ankle DF: 29.9#; knee: ext 40.7#, flex 37.2#; hip: flex 32.1#, abd 29.9# Current: RLE DF 37.2#; knee: ext 59.8#, flexion 33.1#: hip: flex 28.2#, abd 43.3# LLE: ankle: DF 45.6#; knee: ext 54.3#, flexion 37.1#; hip: flex 34.0#, abd 39.8# Pt. has improved on most strengthening. He is close to symmetrical on several, the greatest difference is with knee extension. Stairs: reciprocal, no HR to ascend. 1 HR to descend. GAIT: pt. is doing better, but is still having some issues with directional changes, but corrects balance well. No signs of foot drop or catching his foot today. I would like him to have a slightly better TUG time, walk a little bit further with 6 Min walk test and progress to more gym exercises. He is progressing towards his goals, goals as still appropriate at this point in time and he is progressing towards these goals as well. Plan Plan Plan: Progress gait endurance, progress TUG time and progress gym exercises to independent program. Work on both LE and UE progression. Progress to I with this program. Cont. with SLS balance on either LE and dynamic balance progression. Balance/Gait/Functional tests Balance/Special Test Scores Functional Gait Assessment Score: 22 % Disability: 26.6700 Lower Extremity Functional Score: 50 TUG Test Time Seconds: 12.4 Tug Test: <20 sec.=mostly independent 30 Second Chair Rise Test Seconds: 10 6 Minute Walk Test: 1315 no AD Goals Goals Goal 1:: LTG: pt. to be I with HEP. Goal Time Frame: 4-6 Weeks Goal Progress: Progressing Goal 2:: LTG: pt. to complete TUG under 10sec without use of AD. Goal Time Frame: 4-6 Weeks Goal Progress: Progressing Goal 3:: LTG: Pt. to have increased FGA to score of 23/30 indicating proper balance. Goal Time Frame: 4-6 Weeks Goal Progress: Progressing Goal 4:: LTG: pt. to have symmetrical strength between BLEs. Goal Time Frame: 4-6 Weeks Goal Progress: Progressing Goal 5:: NEW GOAL: Pt. to complete 6 MWT with distance of at least 1500' Goal Time Frame: 4-6 Weeks Goal Progress: Progressing Goal 6:: LTG: Pt. to complete 30sec sit to stand rep test with at least 15 reps. Goal Time Frame: 4-6 Weeks Goal Progress: Progressing Anticipated Interventions Anticipated Interventions Patient/Client Instruction: Educate patient on: Condition, Plan of Care, Risk Factors and Benefits of Fitness Program For the Purpose of:: To foster healthy habits, To improve decision making, To facilitate caregiver knowledge, To improve self management, To prevent re-injury and To improve ability to perform tasks related to life management Therapeutic Exercise to Include: Strength training, Power training, Endurance training, Balance training, Coordination, Flexibilty training and Gait and locomotor training For the Purpose of:: To decrease pain, To increase ROM, To improve nutrient delivery to tissue, To increase oxygenation perfusion, To improve muscle performance and motor function, To improve ability to perform ADL's, To improve gait and locomotor functions and To improve health of tissue Re-Evaluation Ending Re-evaluation ending: Please do not hesitate to contact me at [phone] by phone or if you have questions or concerns regarding this new plan of care! Sincerely, Abbe Moyer DPT
--- NOTE | 2024-09-20 11:26 | HP.PTREVAL_ITS ---
Re-Evaluation Intro: Dr. Fracisco García MD, It has been my pleasure to treat TABITHA ESTEVES over the last 27 visits for CVA with R sided weakness. Please see the progress note below for an update on the physical therapy plan of care! Subjective Subjective: Pt. Objective Objective/Function: TU.3 no AD previous: RLE DF 37.2#; knee: ext 59.8#, flexion 33.1#: hip: flex 28.2#, abd 43.3# LLE: ankle: DF 45.6#; knee: ext 54.3#, flexion 37.1#; hip: flex 34.0#, abd 39.8# current: RLE: ankle: DF46.8#, knee: ext 66.5#, flex 41.7#; hip flex44.8#, abd 49.2# LLE: ankle DF 69.5#, knee: ext 65.3#, flex 39.1#; hip: flex 55.0#, abd 60.2# GAIT: Pt. is ambulating well without LOB. Tabitha is doing significantly better. I am going to put his PT on hold for 2-3 weeks. He is going to try and do a gym program with his and granddaughter . Plan Plan Plan: PT on hold as he tries to complete HEP in gym independently with spouse and grand daughter. If I do not hear from him in the next few weeks I will DC back to physician. Balance/Gait/Functional tests Balance/Special Test Scores Functional Gait Assessment Score: 26 % Disability: 13.3400 Lower Extremity Functional Score: 61 TUG Test Time Seconds: 9.3 Tug Test: <10 sec.=free mobile 30 Second Chair Rise Test Seconds: 13 6 Minute Walk Test: 1579 normal is (1410- 1920) Goals Goals Goal 1:: LTG: pt. to be I with HEP. Goal Time Frame: 4-6 Weeks Goal Progress: Goal Met Goal 2:: LTG: pt. to complete TUG under 10sec without use of AD. Goal Time Frame: 4-6 Weeks Goal Progress: Goal Met Goal 3:: LTG: Pt. to have increased FGA to score of 23/30 indicating proper balance. Goal Time Frame: 4-6 Weeks Goal Progress: Goal Met Goal 4:: LTG: pt. to have symmetrical strength between BLEs. Goal Time Frame: 4-6 Weeks Goal Progress: Goal Met Goal 5:: NEW GOAL: Pt. to complete 6 MWT with distance of at least 1500' Goal Time Frame: 4-6 Weeks Goal Progress: Progressing Goal 6:: LTG: Pt. to complete 30sec sit to stand rep test with at least 15 reps. Goal Time Frame: 4-6 Weeks Goal Progress: Progressing Anticipated Interventions Anticipated Interventions Patient/Client Instruction: Educate patient on: Condition, Plan of Care, Risk Factors and Benefits of Fitness Program For the Purpose of:: To foster healthy habits, To improve decision making, To facilitate caregiver knowledge, To improve self management, To prevent re-injury and To improve ability to perform tasks related to life management Therapeutic Exercise to Include: Strength training, Power training, Endurance training, Balance training, Coordination, Flexibilty training and Gait and locomotor training For the Purpose of:: To decrease pain, To increase ROM, To improve nutrient delivery to tissue, To increase oxygenation perfusion, To improve muscle performance and motor function, To improve ability to perform ADL's, To improve gait and locomotor functions and To improve health of tissue Re-Evaluation Ending Re-evaluation ending: Please do not hesitate to contact me at [phone] by phone or Fax: if you have questions or concerns regarding this new plan of care! Sincerely, Abbe Moyer DPT
--- NOTE | 2024-10-16 13:09 | HP.PTDCSUM ---
Discharge Summary D/C summary: It has been my pleasure to treat TABITHA ESTEVES referred by Dr. Fracisco García MD, with the diagnosis of CVA with R sided weakness for a total of 29 visit(s). Discharge Date: 10/16/24 Please see the following information for a summary of their discharge status. Subjective Subjective: PT. reports no issues today. Pt. pleased. Pt. reports no pain or imbalance. Pt. is to start personal training next week. Pt. reports being 90% better overall. Pain Low back: Pain Intensity (Out of 10): 0 Overall Improvement % Improvement: 90 Objective Objective/Function: Pt. is overall doing well. Pt. pleased with progress. He is back to all activities without issues. Pt. is going to start back up with personal trained starting next week. He is met all of his goals with PT. I am DCing him back to I HEP at this point in time. Goals Goal 1:: LTG: pt. to be I with HEP. Goal Progress: Goal Met Goal 2:: LTG: pt. to complete TUG under 10sec without use of AD. Goal Progress: Goal Met Goal 3:: LTG: Pt. to have increased FGA to score of 23/30 indicating proper balance. Goal Progress: Goal Met Goal 4:: LTG: pt. to have symmetrical strength between BLEs. Goal Progress: Goal Met Goal 5:: NEW GOAL: Pt. to complete 6 MWT with distance of at least 1500' Goal Progress: Goal Met Goal 6:: LTG: Pt. to complete 30sec sit to stand rep test with at least 15 reps. Goal Progress: Goal Met Plan Plan: Pt. to be DC from PT at this point in time. D/C Information d/c sentence: If there are questions or concerns regarding this patient's physical therapy, please feel free to call me at [phone]. Thank you for the referral of this patient. Sincerely, Abbe Moyer, DPT Balance/Gait/Functional tests Balance/Special Test Scores Functional Gait Assessment Score: 26 % Disability: 13.3400 Lower Extremity Functional Score: 67 TUG Test Time Seconds: 9.3 Tug Test: <10 sec.=free mobile 30 Second Chair Rise Test Seconds: 15 6 Minute Walk Test: 1674feet normal is (1410- 1920) Improvement % Improvement: 90
--- NOTE | 2024-10-25 11:09 | OTREVAL_ITS ---
Re-Evaluation Intro: Dr. Fracisco García MD, It has been my pleasure to treat TABITHA ESTEVES over the last 29 visits for CVA. Please see the progress note below for an update on the occupational therapy plan of care! Subjective Subjective: Wanting to know where he's at with progress today, cancelled his last appt with Nurys and did not reschedule. Difficulty with buttoning, opening ziploc bags, opening cups/lids. pt expressing that he feels he still has some work to do for OT to fully utilize his first year post stroke for optimizing recovery. pt still expressing frustration with certain things he can't do at home as described above. Talking about using a button hook vs helping him. Objective Objective/Function: measurements taken: R shoulder flexion 125* R forearm supination 85* R applied psychology professor strength 79# R lateral 15# R tripod 8# R 9HPT 38sec quick DASH 52%, decreased from 72% pt would benefit from continued OT services to further improve strength, coordination, decreased numbness and improved indep at home with ADL/IADL tasks Plan Plan Frequency: 2-3x /Week Duration: 4 Weeks Visits in this POC: (Insurance-$[id number]) 2-3x week for 4 weeks Plan: Continue POC for x2/week for 5 weeks with 60 minute sessions Goals Goals Patient Goals: Regain Mobility, Regain Strength, Improve Fine Motor Skills, Use Hand/Wrist/Arm Normally Again, Be More Independent in ADLS, Resume Former H ousehold Responsibilities (Cooking,Cleaning,Yard, etc.) and Resume Hobbies Goal:: Pt will demo a increase in fit 2 peak by 10# to increase pts ind. with ADLs by d/c pt will demo a increase in right applied psychology professor strength to 65# or greater to increase pts ind. with ADL and IADLs by d.c (MET 10/25 AT 79#) Goal:: pt will demo a increase in right shoulder flexion by 30* to increase pts ind. with ADLs and IADLs by d.c (PROGRESSING 10/25 improved by 25*) Goal:: pt will demo the ability to write 5 sentences with good legibility by d.c pt will demo the ability to manipulate 10 coins from finger- palm & palm to finger tips without dropping coins to increase pts ability to manipulate coins by d/c. (progressing 10/25) pt will demo the ability to tie shoes IND by dc pt will demo a decrease in 9-hole peg testing by 15 sec. or greater to indicate increase in FMS by d/c (progressing decreased by 11 seconds 10/25) Goal:: Pt will demo the ability to simulate using feeding utensils with increased fluid motion to not spill food by d.c. Anticipated Interventions Anticipated Interventions Anticipated Interventions: A/AAROM/PROM, Strengthening, Fine Motor Coord/Morgan and Neuro Reeducation Re-Evaluation Ending Re-evaluation ending: Please do not hesitate to contact me at [phone] by phone or if you have questions or concerns regarding this new plan of care! Sincerely, Kia Lopez
--- NOTE | 2024-11-26 15:18 | HP.SP.REEV ---
Visit History Visit Info Date of Eval: 08/07/24 Today is Visit #: 1 Public Information Coordinator: MARGAUX History Attending Doctor: Referring Doctor: Reason for Referral: CVA. RX HERE Medical Diagnosis: Stroke Date of Onset of Diagnosis: 04-13-2024 Previous speech therapy: Yes Results: [facility] and [facility] [place]; Advanced from NPO/NG x1 week then "passed" MBSS in acute. Transitioned from pureed foods and "thickened" liquids to full regular diet and thin liquids prior to return to [place] around 05/13/24. "Somewhat" addressed vocal intensity and quality with sustained phonation. Other Relevant Medical History/Diagnoses/Surgery: Left CVA with right hemiparesis, dysphagia, dysphonia, depression Medications related to this diagnosis: See EMR Smoking Status: Never smoker Diagnosis Diagnosis: Left CVA with right hemiparesis, dysphagia, Parkinson's Disease, Mild Cognitive deficits, dysphonia. Pain Is pain an issue with your current prescribed condition?: No Personal Preferred language: Trinid[place] Patient Allergies Allergies Allergies: Allergies No Known Allergies Allergy (Verified 10/29/24 08:46) Previous/Current Goals Goals 1-5 Previous Goal #1: Patient will tolerate regular diet and thin liquids to facilitate adequate hydration/nutrition with optimum safety and efficiency of swallowing function without overt signs and symptoms of dysphagia or aspiration. Goal 1 Status: Therapeutic trials with thin water via plastic bottle to assess for s/s dysphagia and train patient in swallow strategies. 11/03 no indications of dysphagia. Immediate reflexive cough x1. Right anterior loss of water x1. During treatment, throat clearing ranges from increased throat clearing to Patient taking 4 single sips with only one throat clear. Goal will be discontinued as patient stated he knows what to do at home and "just needs to do it." ( per patient statement) Previous Goal #2: Patient will independently utilize recommended compensatory swallowing techniques for dysphagia management to reduce the risk of pulmonary compromise with PO intake. Goal 2 Status: Minimal verbal and visual cues for exaggerated labial seal for liquid containment and reduced bolus size to facilitate bolus control. Goal will be discontinued at Patient's request. Previous Goal #3: Patient will independently complete prescribed pharyngeal strengthening exercises to facilitate improved muscle strength and coordination of swallow function. Goal 3 Status: Patient reported that he is swishing water and chewing gum for his exercises. He was cued to add pharyngeal exercises also. Patient has reported during most sessions that he is not completing his exercises at home. Again, patient stated he knows what to do at home and "just needs to do it." ( per patient statement) Goal discontinued. Previous Goal #4: Patient will independently complete prescribed oral strengthening exercises to facilitate improved anterior liquid bolus containment and eliminate anterior loss of saliva 8/10 times. Goal 4 Status: Patient has stated that he is completing oral exercises intermittently at home and stated he can independently do this at home as he has been educated on them. He requested this goal to be discontinued. Previous Goal #5: Patient will increase vocal loudness to reach a target sound pressure level of 70 dB MOISTURE METER OPERATOR with 1 cue during reading at the word and sentence level, which will help increase vocal respiratory support for functional communication. Goal 5 Status: GOAL CONTINUES. Patient ranged from average of 55-62dB with no cues in conversation. With moderate cues, he can increase to 68-72dB but reduces back to previous level unless given cues. Goals 6-10 Previous Goal #6: Patient will sustain phonation for 10 seconds using good breath support on 4/5 trials on 2/3 consecutive sessions. Goal 6 Status: Goal was added recently so limited data collection. Trials: 7, 8, 9, 12 seconds. Maximal cues to use good breath support. Goal to continue. Previous Goal #7: Patient will complete a cognitive evaluation to establish baseline cognitive functioning following CVA. Goal 7 Status: See BCAT below. Subjective Dysphagia Symptoms Reported Symptoms/Problems with: Drooling, Coughing and Difficulty Swallowing Liquids Current Diet Solids Current Diet: Regular Current Diet Liquids Current Liquids: Thin Hawkins free water Protocol: No Comments Comments: -: Patient does not use straws as a personal preference. Objective Dysphagia Administered by Administered by: Self Thin Liquids Administred via: Cup Oral Transit: WNL Bolus clearance: significant clearance/minimal residue Gagging: No Cough: immediate and throat clear Pharyngeal phase: suspect pharyngeal deficits Patient Report: Coughing with thin water via cup with large volume successive sips only. Cough immediate and strong. Right labial flaccidity measures 12mm via labial goniometer, results in right anterior loss of liquid bolus 3/6 trials. Patient endorses drooling with neck in flexion. Pureed Administered via: Spoon Oral Preparation: lip or tongue seal bolus escape Oral Transit: WNL Bolus clearance: significant clearance/minimal residue Gagging: No Cough: none observed/unable to assess Pharyngeal phase: immediate laryngeal elevation Comments: Right buccal residue 2/5 trials. Clears with minimal verbal cues for subsequent dry, effortful swallow. Regular Oral Preparation: WNL Oral Transit: Delay > 1 seconds Bolus clearance: significant clearance/minimal residue Gagging: No Cough: immediate and throat clear Pharyngeal phase: suspect pharyngeal deficits Comments: Bolus prep and manipulation WFL with william cracker 08/30. Minimal lingual residue clears with liquid wash, then results in immediate reflexive throat clear /6, with patient reporting sensation of "a crumb trying to go down the wrong way". Impact Impact on Safety & Functioning: Risk for Aspiration Recommendations Modified Barium Swallow/Cookie Swallow Recommended: Yes Swallowing Treatment: Yes Diet Texture Recommendations Solids: Regular (Level 7) Liquids: Thin (Level 0) Other liquids: Thin Hawkins free water Protocol: No Safety Saftey Precautions/Swallowing Recommendations (Check all that Apply): Small Sips & Bites when Eating, No Straw, Multiple Swallows, Alternate Liquids & Solids and Other (Specify Below) Other: Upright position for all intake, exaggerated labial seal, effortful swallow Results Swallowing Within Normal Limits: No Swallowing Diagnosis: Oropharyngeal Phase Dysphagia (R13.12) Severity: Mild Swallowing Performance Scale Swallowing Performance Scale Swallowing Performance Scale Result: 3 Mild Reference: Neuro-QoL instrument Radiation Oncology Patient Other Other BCAT: -: Total BCAT® Score: 37/50 Impression: This BCAT® score is suggestive of Mild Cognitive Impairment (MCI). The BCAT® provides information about the probable MCI stage and the probable MCI subtype. Both are important for identifying individual strengths and weaknesses, determining actionable interventions, and creating a patient-centered plan of care. MCI is essentially a cognitive syndrome that may represent a pre-dementia phase. People with MCI have more cognitive impairment than those with normal cognition but less impairment than people living with dementia. Patients with MCI are at risk for developing dementia, especially Alzheimer's disease. Studies show that people with MCI are five or more times more likely to convert to Alzheimer's disease per year than people with no cognitive problems. Patients with MCI are often able to manage many of the complex tasks of daily living (IADL), such as shopping, laundry, transportation, medication, telephone, housekeeping, and finances. However, given memory problems and the high conversion rate to dementia, persons with this BCAT® score are at risk for specific problems in these areas, which could place them at some safety risk if they are living in a situation without an appropriate level of direct support. There is often a thin line differentiating Stage 1 MCI from normal cognition. It is important to ask the patient or a knowledgeable informant, direct questions about applied memory. Examples are: Have you been forgetful? Have you misplaced your keys, wallet, or glasses? Have you missed taking a dose of medication? Have you missed any appointments? Also, scores on any cognitive test can be influenced by depression and anxiety. It is important to ask questions about mood functioning. One idea to keep in mind when working with patients who have MCI, and their families is that the term "Mild Cognitive Disorder" can be misleading. Often patients and families think that the word "mild" implies that the patient does not have a serious problem. Unfortunately, MCI is a serious health condition that can have far reaching implications for independence and everyday functioning. Education about this disorder is very important. Many clinicians have adopted the diagnostic term, Mild Neurocognitive Disorder (MND), in place of MCI. There is quite a bit of overlap between the two diagnoses, and many patients with BCAT® scores consistent with MCI also meet criteria for MND. Probable MCI Stage: MCI Staging is based on total BCAT® Test Scores. Stage 1 MCI reflects total BCAT® Scores between 39-43 (inclusive). People with Stage 1 MCI have more subtle changes in cognition and functional performance than people with Stage 2 MCI. Also, people with Stage 1 MCI are less likely to progress to dementia and have a longer MCI timeline than people with Stage 2 MCI. Stage 2 MCI reflects total BCAT® Scores between 34-38 (inclusive). People with Stage 2 MCI have more significant changes in cognition and functional performance than people with Stage 1 MCI. Also, people with Stage 2 MCI are more likely to progress to dementia and have a shorter MCI timeline than people with Stage 1 MCI. In fact, many people with Stage 2 MCI demonstrate cognitive and functional deficits similar to those with mild stage dementia. For people with scores consistent with MCI, the clinician may consider administration of the Verbal Test of Practical Judgment (VPJ®) to identify impairments in judgment that may impact safety and the ability to live independently. Probable Subtype: Multi-domain MCI (mMCI) Typically, there is one prominent cognitive problem, although there can be more than one. By far the most common problem is with memory. This is often referred to as amnestic MCI (aMCI). A true memory problem is prospective; that is, it involves the ability to make new memories and learn new things. This should not be confused with the ability to recall people, places, or events from the distant past. With aMCI, other cognitive skills tend to be generally normal or close to normal. Executive control functions (ECFs), such as judgment, planning, organization, and problem-solving, are typically mostly intact. However, the Executive Control Functions Factor (ECFF) score should be taken into consideration, as some patients with MCI have ECF deficits. For example, there is a subtype of MCI called executive MCI (eMCI), where the primary problem is with executive functions, while memory is generally within normal limits. Some MCI patients have multiple cognitive problems, but do not meet criteria for dementia. This condition is called multi-domain MCI (mMCI). A fourth subtype is "undifferentiated" MCI. Patients with undifferentiated MCI tend to either be at the very early stage of MCI or have normal cognitive functioning at baseline but may be experiencing a medical problem negatively impacting cognition. Examples include UTI, pneumonia, and other infections. Total Contextual Memory Factor (CMF) Score: 12 The Contextual Memory Factor (CMF) indicates current verbal memory skills. It is highly predictive of cognitive diagnosis (MCI versus dementia) and instrumental activities of daily living (IADL). It is also sensitive to those who have amnestic MCI (and who do not have dementia). The score range is 0-15. Scores below 12 typically indicate significant memory concerns that can impact everyday living. A score of 14, combined with a total BCAT® score in the MCI range, is often associated with [id number]. When this occurs, a review of executive functions and other cognitive domains may be helpful. Total Executive Control Functions Factor (ECFF) Score: 4 The Executive Control Functions Factor (ECFF) indicates current executive control functions abilities. There is a strong correlation between ECFF and predicting everyday activities of daily living, especially the higher order skills involving judgment, problem-solving, and reasoning. The score range is 0-7. Scores below 5 generally indicate problems in executive control that could interfere with successful independent living. Some people have problems with executive functions but have relatively intact memory skills. When this occurs, the subtype of executive MCI may be indicated. Total Complex Attention Factor (CAF) Score: 8 Complex attention is an essential cognitive domain. It includes immediate, selective, and divided attention skills. It is highly associated with the ability to perform basic and complex activities of daily living. The Complex Attention Factor score (CAF) predicts ADL and IADL abilities and empirically measures the attentional skills necessary for independent functioning. Lower scores are associated with weaker performance, whereas higher scores suggest stronger abilities. Scores of 7-8 are within the normal/adequate range, and persons with these results may demonstrate higher levels of independence. Scores below 7 indicate likely attentional deficits, the need for more supervision or assistance, and higher risk for safety concerns and errors when completing basic or complex functional tasks. Please note that the CAF has a low performance threshold so most people should score in the adequate range. Total Cognitive Task Math Teacher (CTM) Score: 24 The Cognitive Task Math Teacher (CTM) integrates an individual’s performance in three primary cognitive domains: contextual memory, executive control functions, and complex attention. Together, these skills are among the most powerful predictors of carlos outcomes, including performance of basic and complex activities of daily living. The CTM score informs clinicians and families about impairments that can impact functional performance and highlight each individual’s risk for falls and adverse events at home, rehospitalizations and the need for residential support. The CTM score should be considered as part of a comprehensive assessment and be used to guide treatment interventions that address these underlying skill areas and promote a safe and sustainable transition to the next level of care. The CTM is an important clinical tool that informs the plan of care and should be used to identify persons at higher risk for cognitively related functional deficits. When interpreting the CTM score, it is helpful to recognize what scores indicate normal functioning and what scores indicate higher risk. CTM scores in the 26-30 range are within normal limits. These patients have relatively low risk. CTM scores in the 20-25 range indicate moderate risk. CTM scores below 20 indicate relatively high risk. Plan Plan Plan: Speech therapy is recommended to continue for 4 weeks to focus on recall strategies and increased volume for functional communication. Patient requested to discontinue dysphagia therapy. Recommendations Treatment Warranted: Yes Treatment Warranted: Cognition and Voice Progress Prognosis: Good Frequency Frequency: 1x/Week Duration: 4 Weeks Visits in this POC: 4 Patient/Family Goal Patient/Family Goal: Reduce/Eliminate coughing with liquids; stop drooling Goals that are Established Determination:: Goals will be added/modified as deemed necessary and appropriate. Therapy will be discontinued when results of re-evaluation indicate therapy is no longer needed or lack of progress has been documented. Goal #1-5 Goal #1: Patient will increase vocal loudness to reach a target sound pressure level of 70 dB MOISTURE METER OPERATOR with 1 cue during reading at the word and sentence level, which will help increase vocal respiratory support for functional communication. Goal #2: Patient will sustain phonation for 10 seconds using good breath support on 4/5 trials on 2/3 consecutive sessions. Goal #3: Patient will demonstrate an understanding of recall strategies to be able to use at least 2 strategies for functional home carry over of recall tasks on 3/4 trials on 2/3 consecutive sessions. Education Patient has Indicated that the Following Identified Educational Needs: None The Patient has indicated that they have no educational or learning abilities that may effect their care.: Yes Patient Instruction Patient Education: Diagnosis, Treatment Plan, Goals, Safety Precautions, Diet Level and Home Exercise Program Person Taught: Patient and Significant Other Teaching Method: Discussion, Demonstration and Handout Response to teaching: Return Demonstration, Reinforcement Needed and Has Prior Knowledge
--- NOTE | 2024-12-26 13:18 | HP.OTDCNRP_ITS ---
Patient Information Patient Information: TABITHA ESTEVES was seen in my office for initial evaluation on 06/25/24. The following Plan of Care was established for this patient: POC Established Plan: d/c pt has established a health and wellness program Anticipated Interventions Anticipated Interventions: A/AAROM/PROM, Strengthening, Fine Motor Coord/Morgan and Neuro Reeducation Last Seen Last Seen: This patient was last seen in our office 11/29/24. Pertinent comments regarding their Occupational therapy will appear below: pt progressed well in OT. was seen for 38 sessions. At this time has transitioned to a health and wellness program. Pt no showed last scheduled apt and at this time is d/c. 9 hole peg test right 25.92 sec. 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 I would be happy to see this patient again in the future if found appropriate by the physician. Thank you! Vira Presley, OTR/L, CHT
--- NOTE | 2025-02-04 12:54 | HP.SP.DC ---
ST Discharge Summary Discharged: Discharge: Angus Mc is discharged from speech therapy at [facility] as of 01/24/25 due to plateau with goals. 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 He also has a diagnosis of Parkinson’s disease. Initially, therapy focused on dysphagia from his CVA. He reported initially that he was completing exercises then over time, reduced to 1-2 times per week then not at all. He continued to exhibit throat clearing occasionally for thin liquids as he was not using his compensatory strategies. His most recent plan of care focused on increasing volume due to lower volume common with Parkinson’s disease and recall strategies as patient reported he continues to have difficulty with memory. He was provided with a written list of 5 strategies, ways to use them and how to carry over. Patient reported that he was not using them as other things at times were his “focus.” His volume was 69.2- to 69.4 during the sessions. Patient needed maximal cues to stay on task during the sessions. His was present for the last session and she was educated on volume related to Parkinson’s as well as memory. She was receptive to small changes in the environment at home to help with his recall skills. He is discharged from speech therapy due to plateau of skills and patient lacking carry over into home activities. Patient was in agreement as he stated he knew what to do at home. Thank you for allowing me to participate in the care of this patient.
== END 2025-01-24 19:00 | disposition home or self-care (01) ==
LOC: SP 09:00
PROVIDERS: PCP Family Medicine; Referring Provider Orthopaedic Surgery; Visit Provider Orthopaedic Surgery
DX: I69.351 Hemiplegia and hemiparesis following cerebral infarction affecting right dominant side (principal); R13.10 Dysphagia, unspecified; R47.01 Aphasia
CPT/HCPCS: 92507; 92526; 92610; 97110; 97112; 97116; 97140; 97161; 97166; 97530

== ENCOUNTER → 2025-02-04 | Outpatient (CLI) | payer MEDICARE, OTHER, SELFPAY ==
--- NOTE | 2025-02-04 13:02 | CDU_ITS ---
Reason For Study Reason For Study: Bilateral Carotid Bruit Rt. Velocities/BP Lt. Velocities/BP Prox CCA 76.5/16.0 cm/sec. Prox CCA 130.8/21.2 cm/sec. Mid CCA 92.4/24.8 cm/sec. Mid CCA 94.1/22.8 cm/sec. Dist CCA 83.3/19.4 cm/sec. Dist CCA 79.3/10.6 cm/sec. Prox ICA 88.8/30.3 cm/sec. Prox ICA 87.9/21.6 cm/sec. Mid ICA 76.0/24.8 cm/sec. Mid ICA 99.0/30.2 cm/sec. Dist ICA 74.6/23.6 cm/sec. Dist ICA 114.2/30.3 cm/sec. Rt. ICA/CCA = 1.0. Lt. ICA/CCA = 1.2. Prox ECA 105.1/10.6 cm/sec. Prox ECA 137.4/18.9 cm/sec. Rt. Vert. 34.6/10.6 cm/sec. Lt. Vert. 39.6/5.3 cm/sec. Right Extracranial There is intimal thickening but no significant atherosclerotic plaque noted in the right common carotid artery. There is heterogeneous, irregular atherosclerotic plaque noted in the right internal carotid artery. There is homogeneous, smooth atherosclerotic plaque noted in the right external carotid artery. Antegrade flow is noted in the right vertebral artery. Left Extracranial There is homogeneous, smooth atherosclerotic plaque noted in the left common carotid artery. There is heterogeneous, smooth atherosclerotic plaque noted in the left internal carotid artery. There is heterogeneous, irregular atherosclerotic plaque noted in the left external carotid artery. Antegrade flow is noted in the left vertebral artery. Procedure Carotid Duplex [id number]. This is a Carotid Duplex examination using B-mode, color flow and specral Doppler. The exam was diagnostic. Exam performed in department. VL/Carotid Duplex Ultrasound Interpretation Summary Mild (<50%) stenosis right extracranial internal carotid. Mild (<50%) stenosis left extracranial internal carotid. Flow within the vertebral arteries is antegrade bilaterally. Ordering Physician: Pierce Cummings Referring Physician: Betty Cuevas Performed By: Luis Tapia RVT
--- OUTSIDE RECORDS SUMMARY | 2025-02-04 13:40 | XMS RPT_ITS | CCD ---
Author Organization [facility] Care Team Providers Care Director Of Field Service Name Role Phone Rosie Rodriguez Primary Care Provider RENATO MULLEN JR Referring Unav ailable ROSIE RODRIGUEZ Primary Care Unavailable RENATO MULLEN JR Admitting Unav ailable RENATO MULLEN JR Attending Unav ailable Pierce Cummings Attending Unavailable Mason, Chalon Primary Care Unavailable Mason, Chalon Referring Unavailable Oleghe, Efewongbe Attending Unavailable Jolliff, Rosie S Primary Care Unavailable Jolliff, Rsoie S Referring Unavailable Jolliff, Rosie S Attending Unavailable Jolliff, Rosie S Primary Care Unavailable Tickton BELL CAPTAIN, Laney Attending Unavailable Jolliff, Rosie S Primary Care Unavailable Tickton BELL CAPTAIN, Laney Attending Unavailable Jolliff, Rosie S Primary Care Unavailable Mason, Chalon Primary Care Unavailable Lona, Tarentum Attending Unavailable Baddoji Pierce Referring Unavailable Mason, Chalon Primary Care Unavailable Lona, Cayetano Attending Unavailable Tickton BELL CAPTAIN, Laney Attending Unavailable Jolliff, Rosie S Primary Care Unavailable Oleghe OLS Efewongbe Attending Unavailabl e Jolliff, Rosie S Primary Care Unavailable Mason, Chalon Primary Care Unavailable Mason, Chalon Referring Unavailable Mason, Chalon Attending Unavailable Mason, Chalon Primary Care Unavailable Mason, Chalon Referring Unavailable Mason, Chalon Attending Unavailable Emiliano Pierce Referring Unavailable Baddour Pierce Attending Unavailable Mason, Chalon Primary Care Unavailable García, Fracisco Referring Unavailable GarcíaFracisco Attending Unavailable Jolliff, Rosie S Primary Care Unavailable Oleghe OLS Efewongbe Attending Unavailabl e Jolliff, Rosie S Primary Care Unavailable Oleghe OLS, Efewongbe Referring Unavailabl e Jolliff, Rosie S Primary Care Unavailable Oleghe OLS, Kalynongalfonso Attending Unavailjosé miguel e Arianna MENDOZA, Efewongbe Referring UnavailRosie Light Primary Care Unavailable Arianna MENDOZA, Manuel Attending Unavailjosé miguel keyana Pierce Cummings Attending Unavailable Pierce Cummings Referring Unavailable Betty Cuevas Primary Care Unavailable Rosie Rodriguez S Primary Care Unavailable Arianna MENDOZA, Manuel Attending Unavailjosé miguel keyana Pierce Cummings Attending Unavailable AlizavictorianoRosie el S Primary Care Unavailable Rosie Rodriguez S Referring Unavailable Pierce Cummings Attending Unavailable Betty Cuevas Primary Care Unavailable Rosie Rodriguez Referring Unavailable Medications Completed/Discontinued Medications Medication Drug Class(es) [...] Translations: [Cerebral infarction, unspecified] Onset: 07-03-2024 Chronic Complications of surgical procedures or medical care (2 sources) Hypoinsulinemia following procedure; Translations: [Postprocedural hypoinsulinemia] Onset: 05-06-2022 Chronic Essential hypertension (1 source) Essential (primary) hypertension; Translations: [Essential (primary) hypertension] Onset: 10-02-2024 Chronic Heart valve disorders (1 source) Nonrheumatic aortic (valve) stenosis; Translations: [Nonrheumatic aortic (valve) stenosis] Onset: 01-20-2025 Chronic Osteoarthritis (2 sources) Primary osteoarthritis, left shoulder; Translations: [Arthritis of left shoulder region] Onset: 05-24-2022 Chronic Past or Other Problems Problem Classification Problem Date Documented Da te Episodic/Chronic Cardiac dysrhythmias (1 source) Bradycardia, unspecified; Translations: [Bradycardia, unspecified] Onset: 09-03-2024 Episodic Other lower respiratory disease (1 source) Shortness of breath; Translations: [Shortness of breath] Onset: 09-30-2024 Episodic Spondylosis; intervertebral disc disorders; other back problems (1 source) Low back pain; Translations: [Lumbago] Onset: 09-30-2008 09-30-2008 Episodic Results Test Name Value Interpretation Reference Range Facility Neurology Visit Reporton Neurology Visit Report [facility] [address] [place] [address], [address] [place] [address] OFFICE VISIT Date of Service: 01/30/25 MR#: [id number] Acct: [id number] Name: TABITHA ESTEVES Rep #: [id number] : 1950 Provider: Dr. Pierce doty MD Age/Sex: 74/M Location: [facility] Status: Signed HPI HPI Chief Complaint: Details: Interim History: Tabitha returns for follow-up visit. He has a history of hypertension, hyperlipidemia, right renal atrophy, obstructive sleep apnea (on CPAP), depression, anxiety, and bipolar disorder. He is accompanied by [...] voice has become hypophonic since 2021. He had previously seen a psychiatrist for his bipolar disorder, depression and anxiety. He has been taking quetiapine for years. His dose of quetiapine was previously reduced to 25mg nightly. He has been taking lamotrigine for years. He also takes fluoxetine. An attempt to discontinue quetiapine resulted in worsening of his mood disorder. He previously took quetiapine 300 mg nightly. Carbidopa/levodopa was initiated in 2022 and he is tolerating this well. Following initiation of carbidopa/levodopa and reduction of his dose of quetiapine, he had some improvement of his parkinsonian tremor and gait. His gait has been more shuffling recently and his tremor has slightly increased. He has had some memory difficulty since [...] status over recent months is reported. He discontinued ropinirole nightly for periodic leg movement of sleep and has not had recurrence of this condition. He has exhibited some drooling and decreased facial expressiveness. Mini-Mental status exam score was 26/30 in November 2022. His carotid ultrasound (July 2023) did not reveal hemodynamically significant stenosis. His cardiac echo (2023) revealed moderate aortic stenosis and left ventricular hypertrophy. 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 His deficits resolved except for mild right sided facial weakness and mild right upper extremity weakness and diplopia on leftward gaze. He had physical therapy. He was treated with a thrombolytic at the time of initiation presentation of his stroke and was subsequently placed on aspirin and Eliquis. Clopidogrel was not initiated due to concern that he would be a nonresponder to this medication (details regarding this determination are presently not available). He denies having atrial fibrillation. His 14 day cardiac event monitor did not reveal atrial fibrillation or flutter; the baseline rhythm was sinus rhythm. He takes Eliquis. The patient has not had symptoms suggestive of recurrent stroke. Melatonin was not of benefit for his insomnia. Mirtazapine has been prescribed for his insomnia. Physical Exam: Neuro: The patient is awake; he is slightly bradyphrenic; no rigidity is noted in the wrists; no tremor is noted at rest or when arms are extended however a right hand tremor is noted when he ambul ates gait is mildly slow; he exhibits decreased arm swing bilaterally; his posture is stooped; he is oriented to day of the week; he is able to spell world backwards; he is able to subtract 7 from 93 Neck: bilateral bruits are auscultated Heart: Regular rhythm and rate; a cardiac murmur is noted On exam in July 2024: Bilateral bruits versus transmitted heart sounds (on examination in 2023, a left carotid bruit was auscultated) Supplemental Info Head CT (06/28/2018): FINDINGS: Normal [...] bilaterally. Mucosal thickening of the maxillary sinuses (more content not included)... Normal [facility] Echo Complete W/ Contraston 01-01-2025 Echo Complete W/ Contrast [facility] [address] [place] [address] Echo Complete W/ Contrast 01/01/25 0807 MR#: [id number] Acct: [id number] Name: TABITHA ESTEVES Rep #: [id number] : 1950 74 From: Cayetano Zamorano MD Attending Dr: Dr. Pierce Cummings MD Status: R EG [facility] Ordering Dr: Pierce Cummings MD Date: 01/01/25 Location: [facility] Sex: M C Admitted: Reason For Study Reason For Study: Aortic Stenosis Procedure This was a 2D Doppler, Color Flow transthoracic echocardiogram. Contrast injection was performed. Exam performed in department. Left Ventricle Normal LV size. Moderate concentric left ventricular hypertrophy. Left ventricular systolic function is normal. The left ventricular ejection fraction is 60 %. Stage 1 diastolic dysfunction. No regional wall motion abnormalities noted. Right Ventricle Normal RV size. Normal systolic function. Atria Normal left atrium. Normal right atrium. Mitral Valve Normal mitral valve. Mild (1+) eccentric mitral valve insufficiency. Tricuspid Valve Normal tricuspid valve. Aortic Valve Trisinus/trileaflet aortic valve. Moderate focal aortic valve calcification. Peak aortic valve gradient 55 mmHg. Mean aortic valve gradient 34 mmHg. Moderate to severe aortic stenosis. Trivial eccentric aortic valve insufficiency. Pulmonic Valve Normal pulmonic valve. Great Vessels Normal aortic root. The pulmonary artery is normal size. Inferior vena cava collapse with respiration. Pericardium/Pleural No pericardial effusion. Medication 22 gauge I.V. with prn adaptor inserted into right arm. Diluted definity 1.5ml given slow IV push to enhance endocardial definition. MMode/2D Measurements Calculations LVIDd: 4.4 cm IVSd: 1.4 cm LVOT diam: 2.1 cm LVIDs: 2.9 cm LVPWd: 1.3 cm RVDd: 3.2 cm FS: 33.9 % LVOT area: 3.5 cm2 Ao root diam: 4.0 cm LAV(MOD-bp): 63.9 ml LVAd ap4: 35.9 cm2 LAV(MOD-bp) Indexed: 31.0 ml/m2 LVLd ap4: 8.9 cm LAV(MOD-sp2): 65.2 ml EDV(MOD-sp4): 116.9 ml LAV(MOD-sp4): 56.3 ml EDV(sp4-el): 123.2 ml LVAs ap4: 20.3 cm2 LVLs ap4: 7.4 cm ESV(MOD-sp4): 46.2 ml ESV(sp4-el): 47.1 ml EF(MOD-sp4): 60.4 % EF(sp4-el): 61.8 % SV(MOD-sp4): 70.6 ml SV(sp4-el): 76.2 ml LA A4 area: 20.8 cm2 SI(MOD-sp4): 34.2 ml/m2 LA dimension(2D): 4.3 cm RA A4 area: 12.7 cm2 TAPSE: 2.1 cm Time Measurements MV dec time: 0.27 sec Doppler Measurements Calculations MV E max jessica: 65.0 cm/sec Lat Peak E' Jessica: 7.5 cm/sec Med Peak E' Jessica: 6.5 cm/sec MV A max jessica: 89.3 cm/sec E/E' lat: 8.7 E/E' med: 10.0 MV E/A: 0.73 MV V2 max: 102.6 cm/sec MV P1/2t max jessica: 78.4 cm/sec Ao V2 max: 368.9 cm/sec MV max P.2 mmHg MV P1/2t: 100.9 msec Ao max P.6 mmHg MV V2 mean: 47.8 cm/sec MV dec slope: 227.7 cm/sec2 Ao V2 mean: 278.5 cm/sec MV mean P.1 mmHg MVA(P1/2t): 2.2 cm2 Ao mean P.3 mmHg MV V2 VTI: 36.9 cm Ao V2 VTI: 93.2 cm MVA(VTI): 2.6 cm2 AV (velocity ratio): 0.30 ILEANA(I,D): 1.0 cm2 ILEANA(V,D): 0.81 cm2 AI max jessica: 350.5 cm/sec LV V1 max: 86.6 cm/sec SV(LVOT): 96.0 ml AI max P.2 mmHg LV V1 max P.0 mmHg LV V1 mean P.4 mmHg AI dec slope: 75.2 cm/sec2 LV V1 mean: 52.2 cm/sec AI P1/2t: 1366 msec LV V1 VTI: 27.7 cm PA V2 max: 80.3 cm/sec ECHO/Echo Complete W/ Contrast Interpretation Summary Normal LV size. Left ventricular systolic function is normal. The left ventricular ejection fraction is 60 %. Moderate concentric left ventricular hypertrophy. Stage 1 diastolic dysfunction. Moderate focal aortic valve calcification. Mean aortic valve gradient 34 mmHg. Contrast injection was performed. Ordering Physician: Pierce Cummings Referring Physician: Pierce Cummings Performed By: Db Bledsoe RCS 01/01/25 1154 Date Cayetano Zamorano MD CC: Dr. Betty Cuevas MD; Dr. 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 Fracisco García MD Status: RE G RCR Eval Date: Discharge Date: Patient Information Patient Information: TABITHA ESTEVES was seen in my office for initial evaluation on 06/25/24. The following Plan of Care was established for this patient: POC Established Plan: d/c pt has established a health and wellness program Anticipated Interventions Anticipated Interventions: A/AAROM/PROM, Strengthening, Fine Motor Coord/Morgan and Neuro Reeducation Last Seen Last Seen: This patient was last seen in our office 11/29/24. Pertinent comments regarding their Occupational therapy will appear below: pt progressed well in OT. was seen for 38 sessions. At this time has transitioned to a health and wellness program. Pt no showed last scheduled apt and at this time is d/c. 9 hole peg test right 25.92 sec. left 24.30 shoulder ROM flexion right 115* left 125* Shoulder fit2 testing right 11# increased from 9# Biceps right 28# increased from 14# manual arts teacher strength 85# At this point I will be discontinuing this patient from occupational therapy. I would be happy to see this patient again in the future if found appropriate by the physician. Thank you! Vira Presley, OTR/L, CHT 12/26/24 1318 CC: Dr. Rosie Rodriguez MD; Dr. Fracisco García MD MK Signed Normal [facility] SP/HP.SPREEVon 11-26-2024 SP/HP.SPREEV [facility] Speech Pathology [facility] [address] [place] [address] / REEVALUATION / MEDICARE RECERTIFICATION SPEECH THERAPY MR#: [id number] Acct: [id number] Name: TABITHA ESTEVES Rep #: [id number] : 1950 74 From: Max Thompson M.A., [facility] Referring Dr.: Dr. Fracisco García MD Insurance: MEDICARE PART A B [employer] [facility] Visit History Visit Info Date of Eval: 08/07/24 Today is Visit #: 1 Stiff Straw Hat Washer: MARGAUX History Attending Doctor: Referring Doctor: Reason for Referral: CVA. RX HERE Medical Diagnosis: Stroke Date of Onset of Diagnosis: 04-13-2024 Previous speech therapy: Yes Results: [facility] and [facility]; Advanced from NPO/NG x1 week then passed MBSS in acute. Transitioned from pureed foods and thickened liquids to full regular diet and thin liquids prior to return to [place] around 05/13/24. Somewhat addressed vocal intensity and quality with sustained phonation. Other Relevant Medical History/Diagnoses/Surge ry: Left CVA with right hemiparesis, dysphagia, dysphonia, depression Medications related to this diagnosis: See EMR Smoking Status: Never smoker Diagnosis Diagnosis: Left CVA with right hemiparesis, dysphagia, Parkinson's Disease, Mild Cognitive deficits, dysphonia. Pain Is pain an issue with your current prescribed condition?: No Personal Preferred language: Turkmen Patient Allergies Allergies Allergies: Allergies No Known Allergies Allergy (Verified 10/29/24 08:46) Previous/Current Goals Goals 1-5 Previous Goal #1: Patient will tolerate regular diet and thin liquids to facilitate adequate hydration/nutrition with optimum safety and efficiency of swallowing function without overt signs and symptoms of dysphagia or aspiration. Goal 1 Status: Therapeutic trials with thin water via plastic bottle to assess for s/s dysphagia and train patient in swallow strategies. 8/10 no indications of dysphagia. Immediate reflexive cough x1. Right anterior loss of water x1. During treatment, throat clearing ranges from increased throat clearing to Patient taking 4 single sips with only one throat clear. Goal will be discontinued as patient stated he knows what to do at home and just needs to do it. ( per patient statement) Previous Goal #2: Patient will independently utilize recommended compensatory swallowing techniques for dysphagia management to reduce the risk of pulmonary compromise with PO intake. Goal 2 Status: Minimal verbal and visual cues for exaggerated labial seal for liquid containment and reduced bolus size to facilitate bolus control. Goal will be discontinued at Patient's request. Previous Goal #3: Patient will independently complete prescribed pharyngeal strengthening exercises to facilitate improved muscle strength and coordination of swallow function. Goal 3 Status: Patient reported that he is swishing water and chewing gum for his exercises. He was cued to add pharyngeal exercises also. Patient has reported during most sessions that he is not completing his exercises at home. Again, patient stated he knows what to do at home and just needs to do it. ( per patient statement) Goal discontinued. Previous Goal #4: Patient will independently complete prescribed oral strengthening exercises to facilitate improved anterior liquid bolus containment and eliminate anterior loss of saliva 8/10 times. Goal 4 Status: Patient has stated that he is completing oral exercises intermittently at home and stated he can independently do this at home as he has been educated on them. He requested this goal to be discontinued. Previous Goal #5: Patient will increase vocal loudness to reach a target sound pressure level of 70 dB SENIOR FUNCTIONAL ANALYST with 1 cue during reading at the word and sentence level, which will help increase vocal respiratory support for functional communication. Goal 5 Status: GOAL CONTINUES. Patient ranged from average of 55-62dB with no cues in conversation. With moderate cues, he can increase to 68-72dB but reduces back to previous level unless given cues. Goals 6-10 Previous Goal #6: Patient will sustain phonation for 10 seconds using good breath support on 4/5 trials on 2/3 consecutive sessions. Goal 6 Status: Goal was added recently so limited data collection. Trials: 7, 8, 9, 12 seconds. Maximal cues to use good breath support. Goal to continue. Previous Goal #7: Patient will complete a cognitive evaluation to establish baseline cognitive functioning following CVA. Goal 7 Status: See BCAT below. Subjective Dysphagia Symptoms Reported Symptoms/Problems with: Drooling, Coughing and Difficulty Swallowing Liquids Current Diet Solids Current Diet: Regular Current Diet Liquids Current Liquids: Thin Hawkins free water Protoco (more content not included)... Normal [facility] Neurology Visit Reporton Neurology Visit Report [facility] [address], [address] [place] [address] OFFICE VISIT Date of Service: 10/29/24 MR#: [id number] Acct: [id number] Name: TABITHA ESTEVES Rep #: [id number] : 1950 Provider: Dr. Pierce doty MD Age/Sex: 74/M Location: [facility] Status: Signed HPI HPI Chief Complaint: Details: Interim History: Tabitha returns for follow-up visit. He has a history of hypertension, hyperlipidemia, right renal atrophy, obstructive sleep apnea (on CPAP), depression, anxiety, and bipolar disorder. He is accompanied by [...] voice has become hypophonic since 2021. He had previously seen a psychiatrist for his bipolar disorder, depression and anxiety. He has been taking quetiapine for years. His dose of quetiapine was previously reduced to 25mg nightly. He has been taking lamotrigine for years. He also takes fluoxetine. An attempt to discontinue quetiapine resulted in worsening of his mood disorder. He previously took quetiapine 300 mg nightly. Carbidopa/levodopa was initiated in 2022 and he is tolerating this well. Following initiation of carbidopa/levodopa and reduction of his dose of quetiapine, he had some improvement of his parkinsonian tremor and gait. No significant change in his parkinsonian symptoms has been noted since his last visit in July 2024. He has had some memory difficulty since [...] status over recent months is reported. He discontinued ropinirole nightly for periodic leg movement of sleep and has not had recurrence of this condition. He has exhibited some drooling and decreased [...] weakness and diplopia on leftward gaze. He had physical therapy. He was treated with a thrombolytic at the time of initiation presentation of his stroke and was subsequently placed on aspirin and Eliquis. Clopidogrel was not initiated due to concern that he would be a nonresponder to this medication (details regarding this determination are presently not available). He denies having atrial fibrillation. His 14 day cardiac event monitor did not reveal atrial fibrillation or flutter; the baseline rhythm was sinus rhythm. His dose of Eliquis was recently reduced to 2.5mg BID by his primary care provider. The patient has not had symptoms suggestive of recurrent stroke. Melatonin was not of benefit for his insomnia. Mirtazapine has been prescribed for his insomnia. Physical Exam: Neuro: The patient is awake; he is slightly bradyphrenic; no rigidity is noted in the wrists; no tremor is noted at rest or when arms are extended; gait is mildly slow; he exhibits decreased arm swing bilaterally; his right hand movement is mildly slow Neck: no bruits Heart: Regular rhythm and rate; a cardiac murmur is noted On exam in July 2024: Bilateral bruits versus transmitted heart sounds (on examination in 2023, a left carotid bruit was auscultated) Supplemental Info Head CT (06/28/2018): FINDINGS: Normal [...] Partial opacification of the ethmoid sinuses. Mucosal (more content not included)... Normal [facility] Re-Evalution OTon 10-25-2024 Re-Evalution OT [facility] Occupational Therapy [facility] [address] [place] [address]. [address] [place] [address] / REEVALUATION / MEDICARE RECERTIFICATION OCCUPATIONAL THERAPY MR#: [id number] Acct: [id number] Name: TABITHA ESTEVES Rep #: [id number] : 1950 74 From: Kia Lopez Referring Dr.: Dr. Fracisco García MD Status: RE G RCR Insurance: MEDICARE PART A B Eval Date: [facility] ([facility] Re-Evaluation Intro: Dr. Fracisco García MD, It has been my pleasure to treat TABITHA ESTEVES over the last 29 visits for CVA. Please see the progress note below for an update on the occupational therapy plan of care! Subjective Subjective: Wanting to know where he's at with progress today, cancelled his last appt with Nurys and did not reschedule. Difficulty with buttoning, opening ziploc bags, opening cups/lids. pt expressing that he feels he still has some work to do for OT to fully utilize his first year post stroke for optimizing recovery. pt still expressing frustration with certain things he can't do at home as described above. Talking about using a button hook vs helping him. Objective Objective/Function: measurements taken: R shoulder flexion 125* R forearm supination 85* R manual arts teacher strength 79# R lateral 15# R tripod 8# R 9HPT 38sec quick DASH 52%, decreased from 72% pt would benefit from continued OT services to further improve strength, coordination, decreased numbness and improved indep at home with ADL/IADL tasks Plan Plan Frequency: 2-3x /Week Duration: 4 Weeks Visits in this POC: (Insurance-$2410) 2-3x week for 4 weeks Plan: Continue POC for x2/week for 5 weeks with 60 minute sessions Goals Goals Patient Goals: Regain Mobility, Regain Strength, Improve Fine Motor Skills, Use Hand/Wrist/Arm Normally Again, Be More Independent in ADLS, Resume Former Household Responsibilities (Cooking,Cleaning,Yard, etc.) and Resume Hobbies Goal:: Pt will demo a increase in fit 2 peak by 10# to increase pts ind. with ADLs by d/c pt will demo a increase in right manual arts teacher strength to 65# or greater to increase pts ind. with ADL and IADLs by d.c (MET 10/25 AT 79#) Goal:: pt will demo a increase in right shoulder flexion by 30* to increase pts ind. with ADLs and IADLs by d.c (PROGRESSING 10/25 improved by 25*) Goal:: pt will demo the ability to write 5 sentences with good legibility by d.c pt will demo the ability to manipulate 10 coins from finger- palm palm to finger tips without dropping coins to increase pts ability to manipulate coins by d/c. (progressing 10/25) pt will demo the ability to tie shoes IND by dc pt will demo a decrease in 9-hole peg testing by 15 sec. or greater to indicate increase in FMS by d/c (progressing decreased by 11 seconds 10/25) Goal:: Pt will demo the ability to simulate using feeding utensils with increased fluid motion to not spill food by d.c. Anticipated Interventions Anticipated Interventions Anticipated Interventions: A/AAROM/PROM, Strengthening, Fine Motor Coord/[place] and Neuro Reeducation Re-Evaluation Ending Re-evaluation ending: Please do not hesitate to contact me at [phone] by phone or if you have questions or concerns regarding this new plan of care! Sincerely, Kia Lopez 10/25/24 1112 CC: Dr. Rosie Rodriguez MD; Dr. Fracisco García MD MRRaisa Signed For Medicare only, by signing this I certify the plan of care. Physicians Signature Date Normal [facility] PT D/C Summary (1)on 025 PT D/C Summary (1) [facility] Physical Therapy [facility] [facility]. [address] [place] [address] / REHABILITATION SERVICES DISCHARGE SUMMARY MR#: [id number] Acct: [id number] Name: TABITHA ESTEVES Rep #: [id number] : 1950 74 From: Abbe Moyer DPT Referring Dr.: Dr. Fracisco García MD Status: RE G RCR Insurance: MEDICARE PART A B [employer] [facility] Discharge Summary D/C summary: It has been my pleasure to treat TABITHA ESTEVES referred by Dr. Fracisco García MD, with the diagnosis of CVA with R sided weakness for a total of 29 visit(s). Discharge Date: 10/16/24 Please see the following information for a summary of their discharge status. Subjective Subjective: PT. reports no issues today. Pt. pleased. Pt. reports no pain or imbalance. Pt. is to start personal training next week. Pt. reports being 90% better overall. Pain Low back: Pain Intensity (Out of 10): 0 Overall Improvement % Improvement: 90 Objective Objective/Function: Pt. is overall doing well. Pt. pleased with progress. He is back to all activities without issues. Pt. is going to start back up with personal trained starting next week. He is met all of his goals with PT. I am DCing him back to I HEP at this point in time. Goals Goal 1:: LTG: pt. to be I with HEP. Goal Progress: Goal Met Goal 2:: LTG: pt. to complete TUG under 10sec without use of AD. Goal Progress: Goal Met Goal 3:: LTG: Pt. to have increased FGA to score of 23/30 indicating proper balance. Goal Progress: Goal Met Goal 4:: LTG: pt. to have symmetrical strength between BLEs. Goal Progress: Goal Met Goal 5:: NEW GOAL: Pt. to complete 6 MWT with distance of at least 1500' Goal Progress: Goal Met Goal 6:: LTG: Pt. to complete 30sec sit to stand rep test with at least 15 reps. Goal Progress: Goal Met Plan Plan: Pt. to be DC from PT at this point in time. D/C Information d/c sentence: If there are questions or concerns regarding this patient's physical therapy, please feel free to call me at [phone]. Thank you for the referral of this patient. Sincerely, Abbe Moyer, DPT Balance/Gait/Functional tests Balance/Special Test Scores Functional Gait Assessment Score: 26 % Disability: 13.3400 Lower Extremity Functional Score: 67 TUG Test Time Seconds: 9.3 Tug Test: <10 sec.=free mobile 30 Second Chair Rise Test Seconds: 15 6 Minute Walk Test: 1674feet normal is (1410- 1920) Improvement % Improvement: 90 10/16/24 1309 CC: Dr. Rosie Rodriguez MD; Dr. Fracisco García MD CLS Signed Normal [facility] CTA Chst, Abd, Pel W and/or WOon 09-24-2024 CTA Chst, Abd, Pel W and/or WO [facility] Imaging Services [address] [place] [address] CTA Chst, Abd, Pel W and/or WO MR#: [id number] Acct: [id number] Name: TABITHA ESTEVES Rep #: [id number] : 1950 M 74 From: Mohinder Du MD PCP: Dr. Betty Cuevas MD Status: REG CLI Study: CTA Chst, Abd, Pel W and/or WO Date of Exam: 0 09/24/24 Exam# [id number] Ordering Dr: Betty Cuevas MD PROCEDURE: CTA CHST, ABD, PEL W AND/OR WO 09/24/2024 REASON FOR EXAM: SOB TECHNIQUE: CTA CHST, ABD, PEL W AND/OR WO coronal and Sagittal reconstruction series were provided. One or more dose reduction techniques were used (e.g., Automated exposure control, adjustment of the mA and/or kV according to patient size, use of iterative reconstruction technique. CONTRAST: Isovue 300 VOLUME: 100 mL RADIATION DOSE SUMMARY: CTDlvol: 62 mGy DLP: 1847 mGycm COMPARISON: Chest x-ray 08/27/2024, abdominopelvic CT 07/02/2020 FINDINGS: Unremarkable base of neck and axilla. Thoracic spine degeneration. Normal esophagus. Upper limits of normal heart size. LVH. No aortic dissection. No pulmonary embolism. Basilar atelectasis. No consolidation, effusion, or pneumothorax. On the left, intrapulmonary lymph node. On the right, no suspicious lung nodules. Normal gallbladder. Upper abdominal solid organs show no acute findings. Atrophic left kidney. No hydronephrosis. Small bladder diverticulum. Mildly enlarged prostate. No retroperitoneal or pelvic adenopathy. No free air. Nondistended bowel. No acute large bowel findings. No signs of appendicitis. Small metallic foreign bodies in the right gluteal area, possible remote injury. Lumbar spine scoliosis and degeneration. CT/CTA Chst, Abd, Pel W and/or WO IMPRESSION: No acute chest abdomen or pelvic pathology. Reading Location: [place] [address] CC: Dr. Betty Cuevas MD Hearing Aid Mechanic: Signed Normal [facility] Re-Evaluation - PT (1)on Re-Evaluation - PT (1) [facility] Physical Therapy [facility] [address] [place] [address]. [address] [place] [address] / REEVALUATION / MEDICARE RECERTIFICATION PHYSICAL THERAPY MR#: [id number] Acct: [id number] Name: TABITHA ESTEVES Rep #: [id number] : 1950 74 From: Abbe Moyer DPT Referring Dr.: Dr. Fracisco García MD Status:REG RCR Insurance: MEDICARE PART A B [employer] [facility] Re-Evaluation Intro: Dr. Fracisco García MD, It has been my pleasure to treat TAIBTHA ESTEVES over the last 27 visits for [...] GAIT: Pt. is ambulating well without LOB. Tabitha is doing significantly better. I am going [...] do not hesitate to contact me at [phone] by phone or if you have questions or concerns regarding this new plan of care! Sincerely, Abbe Moyer, DPT 09/20/24 1126 CC: Dr. Rosie Rodriguez MD; Dr. Fracisco García MD CLS Signed For Medicare only, by signing this I certify the plan of care. Physicians Signature Date Normal [facility] Chest PA and Lateralon 08-27 Chest PA and Lateral [facility] [address] [place], [place] [address] Chest PA and Lateral MR#: [id number] Acct: [id number] Name: DANIELITOTABITHA Raisa Rep #: [id number] : 1950 M 74 From: Blaine Barrow MD PCP: Dr. Betty Cuevas MD Status: REG CLI Study: Chest PA and Lateral Date of Exam: 08/27/24 Exam# [id number] Ordering Dr: Betty Cuevas MD PROCEDURE: CHEST [...] pneumonia. Other findings as noted. Reading Location: [id number] CC: Dr. Betty Cuevas MD Hearing Aid Mechanic: Signed Normal [facility] Comprehensive Metabolic Prof ilon 08-27-2024 Albumin [Mass/Vol] 4.1 g/dL Normal 3.4-4.8 [facility] Comment on above: Order Comment: Order Date: 08/27/24Order Info: 0786-1 - CMPOrder Info: 3016-3 - TSH Performed By: #### L 500.4050, L501.9520 ####[facility] [address] [place], [address] Albumin/Globulin [Mass ratio] 1.4 {ratio} Normal 0.9-2.4 [facility] Comment on above: Order Comment: Order Date: 08/27/24Order Info: 0786-1 - CMPOrder Info: 3016-3 - TSH Performed By: #### L 500.4050, L501.9520 ####[facility] [address] [place], [address] ALK PHOS 97 U/L Normal 40-129 [facility] Comment on above: Order Comment: Order Date: 08/27/24Order Info: 0786-1 - CMPOrder Info: 3 - TSH Performed By: #### L 500.4050, L501.9520 ####[facility] [address] [place], [address] ALT [Catalytic activity/Vol] 17 U/L Normal <=46 [facility] Comment on above: Order Comment: Order Date: 08/27/24Order Info: 0786-1 - CMPOrder Info: 3 - TSH Performed By: #### L 500.4050, L501.9520 ####[facility] [address] [place], [address] AST [Catalytic activity/Vol] 26 U/L Normal <=37 [facility] Comment on above: Order Comment: Order Date: 08/27/24Order Info: 0786- - CMPOrder Info: 3 - TSH Performed By: #### L 500.4050, L501.9520 ####[facility] [address] [place], [address] Bilirubin [Mass/Vol] 0.45 mg/dL Normal 0.00-1.30 [facility] Comment on above: Order Comment: Order Date: 08/27/24Order Info: 0786- - CMPOrder Info: 3 - TSH Performed By: #### L 500.4050, L501.9520 ####[facility] [address] [place], [address] BUN/CRE 25.7 RATIO High 10-20 [facility] Comment on above: Order Comment: Order Date: 08/27/24Order Info: 0786-1 - CMPOrder Info: 3015-3 - TSH Performed By: #### L 500.4050, L501.9520 ####[facility] [address] [place], [address] Calcium [Mass/Vol] 9.3 mg/dL Normal 7.6-11.0 [facility] Comment on above: Order Comment: Order Date: 08/27/24Order Info: 0786-1 - CMPOrder Info: 3015-05 - TSH Performed By: #### L 500.4050, L501.9520 ####[facility] [address] [place], [address] Chloride [Moles/Vol] 106 mmol/L Normal 98-108 [facility] Comment on above: Order Comment: Order Date: 08/27/24Order Info: 0786-1 - CMPOrder Info: 3015-05 - TSH Performed By: #### L 500.4050, L501.9520 ####[facility] [address] [place], [address] CO2 [Moles/Vol] 21.7 mmol/L Normal 21.0-32.0 [facility] Comment on above: Order Comment: Order Date: 08/27/24Order Info: 0786- - CMPOrder Info: 3015-05 - TSH Performed By: #### L 500.4050, L501.9520 ####[facility] [address] [place], [address] Creatinine [Mass/Vol] 1.17 mg/dL Normal 0.70-1.20 [facility] Comment on above: Order Comment: Order Date: 08/27/24Order Info: 0786-1 - CMPOrder Info: 3015-05 - TSH Performed By: #### L 500.4050, L501.9520 ####[facility] [address] [place], [address] GAP 12 Normal 5-15 [facility] Comment on above: Order Comment: Order Date: 08/27/24Order Info: 0786-1 - CMPOrder Info: 3 - TSH Performed By: #### L 500.4050, L501.9520 ####[facility] [address] [place], [address] GFR/1.73 sq M.predicted among non-blacks MDRD (S/P/Bld) [Vol rate/Area] 65 mL/min/{1.73_m2} Normal >60 [facility] Comment on above: Order Comment: Order Date: 08/27/24Order Info: 0786-1 - CMPOrder Info: 3015-3 - TSH Result Comment: mL/m in/1.73m2 CKD-EPI Creatinine Equation (2020) Performed By: #### L 500.4050, L501.9520 ####[facility] [address] [place], [address] Globulin (S) [Mass/Vol] 2.9 g/dL Normal 2.2-4.2 [facility] Comment on above: Order Comment: Order Date: 08/27/24Order Info: 0786-1 - CMPOrder Info: 3 - TSH Performed By: #### L 500.4050, L501.9520 ####[facility] [address] [place], [address] Glucose [Mass/Vol] 94 mg/dL Normal 70-99 [facility] Comment on above: Order Comment: Order Date: 08/27/24Order Info: 0786- - CMPOrder Info: 3015- - TSH Performed By: #### L 500.4050, L501.9520 ####[facility] [address] [place], [address] Potassium [Moles/Vol] 4.0 mmol/L Normal 3.3-5.1 [facility] Comment on above: Order Comment: Order Date: 08/27/24Order Info: 0786-1 - CMPOrder Info: 301-3 - TSH Performed By: #### L 500.4050, L501.9520 ####[facility] [address] [place], [address] Sodium [Moles/Vol] 141 mmol/L Normal 133-145 [facility] Comment on above: Order Comment: Order Date: 08/27/24Order Info: 0786-1 - CMPOrder Info: 3015-05 - TSH Performed By: #### L 500.4050, L501.9520 ####[facility] [address] [place], [address] T PROT 6.9 g/dL Normal 5.9-8.4 [facility] Comment on above: Order Comment: Order Date: 08/27/24Order Info: 0786- - CMPOrder Info: 3 - TSH Performed By: #### L 500.4050, L501.9520 ####[facility] [address] [place], [address] Urea nitrogen [Mass/Vol] 30 mg/dL High 4-19 [facility] Comment on above: Order Comment: Order Date: 08/27/24Order Info: 0786- - CMPOrder Info: 3015-05 - TSH Performed By: #### L 500.4050, L501.9520 ####[facility] [address] [place], [address] Thyroid Stim Hormone (TSH)on 08-27-2024 TSH 1.210 uIU/mL Normal 0.300-4.200 [facility] Comment on above: Order Comment: Order Date: 08/27/24Order Info: 0786-1 - CMPOrder Info: 3015-05 - TSH Performed By: #### L 500.4050, L501.9520 ####[facility] [address] [place], [address] Vitamin D,25 Hydroxyon 08-27 Vitamin D 25-OH 69.8 ng/mL Normal 30-100 [facility] Comment on above: Order Comment: Order Date: 08/27/24Order Info: 0786-1 - CMPOrder Info: 3015-3 - TSH Result Comment: Pilar min D Status Deficiency: <20 ng/mL (50nmol/L) Insufficiency: 20-30 ng/mL (50-75 nmol/L) Sufficiency: 30-100 ng/mL (75-250 nmol/L) Toxicity: >100 ng/mL (>250 nmol/L) Performed By: #### L 506.1001 ####[facility] [address] [place], [place], [address] Re-Evaluation - PT (1)on Re-Evaluation - PT (1) [facility] Physical Therapy [facility] [address] [place] [address] / REEVALUATION / MEDICARE RECERTIFICATION PHYSICAL THERAPY MR#: [id number] Acct: [id number] Name: TABITHA ESTEVES Rep #: [id number] : 1950 74 From: Abbe Moyer DPT Referring Dr.: Dr. Fracisco García MD Status:REG RCR Insurance: MEDICARE PART A B [employer] [facility] Re-Evaluation Intro: Dr. Fracisco García MD, It has been my pleasure to treat TABITHA ESTEVES over the last 20 visits for [...] do not hesitate to contact me at [phone] by phone or if you have questions or concerns regarding this new plan of care! Sincerely, Abbe Moyer, DPT 08/23/24 1017 CC: Dr. Rosie Rodriguez MD; Dr. Fracisco García MD CLS Signed For Medicare only, by signing this I certify the plan of care. Physicians Signature Date Normal [facility] Neurology Visit Reporton Neurology Visit Report [facility] [address] [place] [address], [address] [place] [address] OFFICE VISIT Date of Service: 08/22/24 MR#: [id number] Acct: [id number] Name: TABITHA ESTEVES Rep #: [id number] : 1950 Provider: Dr. Pierce doty MD Age/Sex: 74/M Location: [facility] Status: Signed HPI [facility] Chief Complaint: Details: Interim History: Tabitha returns for follow-up visit. He has a [...] involutional tubbs (more content not included)... Normal [facility] SP/HP.SP.Marti 08-07-2024 SP/HP.SP.EV [facility] Speech Pathology [facility] [address] [place] [address]. [address] [place] [address] / REHABILITATION SERVICES INITIAL EVALUATION MR#: [id number] Acct: [id number] Name: TABITHA ESTEVES Rep #: [id number] : 1950 74 From: Jennifer Hernandez Referring Dr.: Dr. Fracisco García MD Status: RE G RCR Insurance: MEDICARE PART A B [employer] [facility] Visit History Visit Info Date of Eval: 08/07/24 Today is Visit #: 1 Stiff Straw Hat Washer: AYLA History Attending Doctor: Referring Doctor: Reason for Referral: CVA. RX HERE Medical Diagnosis: Stroke Date of Onset of Diagnosis: 04-13-2024 Previous speech therapy: Yes Results: [facility] and [facility] [place]; Advanced from NPO/NG x1 week then passed MBSS in acute. Transitioned from pureed foods and thickened liquids to full regular diet and thin liquids prior to return to [place] around 05/13/24. Somewhat addressed vocal intensity and quality with sustained phonation. Other Relevant Medical History/Diagnoses/Surge ry: Left CVA with right hemiparesis, dysphagia, dysphonia, depression Medications related to this diagnosis: See EMR Smoking Status: Never smoker Diagnosis Diagnosis: CVA dysphagia, dysphonia Pain Is pain an issue with your current prescribed condition?: No Personal Preferred language: Turkmen Patient Allergies Allergies Allergies: Allergies No Known [...] Bolus prep and manipulation WFL with william dean 6/6. Minimal lingual residue clears with liquid wash, [...] with liquids, and worsening of vocal quality. SENIOR FUNCTIONAL ANALYST instruct spouse per scheduling ENT consult for endoscopy, as required prior to initiating treatment, and patient is established patient of local ENT. Patient presents with mild oropharyngeal dysphagia requiring skilled ST 1x/wk x 16 weeks to address deficits in functional swallow via remediation and compensation. Patient to complete MBSS for assessment of pharyngeal integrity. SENIOR FUNCTIONAL ANALYST to obtain order. Recommendations Treatment Warranted: Yes Treatment Warranted: Dysphagia Progress Prognosis: Excellent Frequency Frequency: 1x/Week Duration: 4 Months Visits in this POC: 16 (more content not included)... Normal [facility] Re-Evaluation - PT (1)on Re-Evaluation - PT (1) [facility] Physical Therapy [facility] [address] [place] [address]. [address] [place] [address] / REEVALUATION / MEDICARE RECERTIFICATION PHYSICAL THERAPY MR#: [id number] Acct: [id number] Name: TABITHA ESTEVES Rep #: [id number] : 1950 73 From: Abbe Moyer DPT Referring Dr.: Dr. Fracisco García MD Status:REG RCR Insurance: MEDICARE PART A B [employer] [facility] Re-Evaluation Intro: Dr. Fracisco García MD, It has been my pleasure to treat TABITHA ESTEVES over the last 15 visits for [...] has greatest difficulty with directional changes. FGA 22/30 6 MWT : 1238 feet. MMT: RLE: [...] do not hesitate to contact me at [phone] by phone or if you have questions or concerns regarding this new plan of care! Sincerely, Abbe Moyer DPMaulik 07/26/24 1104 CC: Dr. Rosie Rodriguez MD; Dr. Fracisco García MD CLS Signed For Medicare only, by signing this I certify the plan of care. Physicians Signature Date Normal [facility] Re-Evalution OTon 07-17-2024 Re-Evalution OT [facility] Occupational Therapy [facility] [address] [facility] [place] [address] / REEVALUATION / MEDICARE RECERTIFICATION OCCUPATIONAL THERAPY MR#: [id number] Acct: [id number] Name: TABITHA ESTEVES Rep #: [id number] : 1950 73 From: Vira MEJIA/JOSE CARLOS MiddletonT Referring Dr.: Dr. Fracisco García MD Status: RE G RCR Insurance: MEDICARE PART A B Eval Date: [employer] [facility] Re-Evaluation Intro: Dr. Fracisco García MD, It has been my pleasure to treat TABITHA ESTEVES over the last 11 visits for [...] triceps 20 an increase from 12# right manual arts teacher strength 55# a increase from 45# right lateral pinch 14# increase from 12# right tripod pinch 10# same as eval 9-hole peg test 49.10 a decrease from 49.28 sec. pt has made gains with strength of biceps/triceps but continues to struggle with shoulder strength and manual arts teacher/pinch strength. Plan Plan Frequency: 2-3x /Week Duration: [...] pt will demo a increase in right manual arts teacher strength to 65# or greater to increase [...] do not hesitate to contact me at [phone] by phone or if you have questions or concerns regarding this new plan of care! Sincerely, Vira Presley, OTR/L, CHT 07/17/24 1024 CC: Dr. Rosie Rodriguez MD; Dr. Fracisco García MD MK Signed For Medicare only, by signing this I certify the plan of care. Physicians Signature Date Normal [facility] Lipid Profileon 06-28-2024 CHOL:HDL 2.71 Normal [facility] Comment on above: Order Comment: Order Date: 08/29/23 Order Info: 2857-1 - PSA Performed By: #### L 500.4100 #### [facility] Laboratory [address] [facility] [place], [place], [address] Cholesterol [Mass/Vol] 135 mg/dL Normal <=200 [facility] Comment on above: Order Comment: Order Date: 08/29/23 Order Info: 2857-1 - PSA Result Comment: Chol esterol level, Desirable <200 mg/dL Borderline high cholesterol 200-239 mg/dL High cholesterol >=240 mg/dL Recommendations of the NCEP Adult Treatment Panel for the following risk-cutoff thresholds for the [place] population. Performed By: #### L 500.4100 #### [facility] [address] [place], [place], [address] Cholesterol in HDL [Mass/Vol] 50 mg/dL Normal [facility] Comment on above: Order Comment: Order Date: 08/29/23 Order Info: 2857-1 - PSA Result Comment: Alesia onal Cholesterol Education Program (NCEP) guidelines: <40 mg/dL: Low HDL-cholesterol (major risk factor for CHD) >= 60 mg/dL: High HDL-cholesterol (negative risk factor for CHD) HDL-cholesterol is affected by a number of factors, e.g. smoking, exercise, hormones, sex and age. Performed By: #### L 500.4100 #### [facility] [address] [place], [address] Cholesterol in LDL [Mass/Vol] 73 mg/dL Normal [facility] Comment on above: Order Comment: Order Date: 08/29/23 Order Info: 2857-1 - PSA Result Comment: Bord tepkrh=169-389 mg/dL Higher Wnou=164 mg/dL or greater Performed By: #### L 500.4100 #### [facility] [address] [place], [address] Cholesterol in VLDL [Mass/Vol] 12 mg/dL Normal 5-40 [facility] Comment on above: Order Comment: Order Date: 08/29/23 Order Info: 2857-1 - PSA Performed By: #### L 500.4100 #### [facility] [address] [place], [address] Triglyceride [Mass/Vol] 59 mg/dL Normal [facility] Comment on above: Order Comment: Order Date: 08/29/23 Order Info: 2857-1 - PSA Result Comment: The drugs N-Acetylcysteine and Metamizole may falsely depress this assay. Normal range: <150 mg/dL Borderline High: 150-199 mg/dL High: 200-499 mg/dL Very High: >500 mg/dL Performed By: #### L 500.4100 #### [facility] [address] [place], [address] PSA,Total - Annual Screenon 06-28-2024 PSA,TOT SCREEN 0.65 ng/mL Normal 0.02-4.00 [facility] Comment on above: Order Comment: Order [...] values. Performed By: #### L 501.9910 #### [facility] [address] [place], [place], [address] Inital Evaluation (1) - PTon 06-26-2024 Inital Evaluation (1) - PT [facility] Physical Therapy [facility] [facility] [place] [address] / REHABILITATION SERVICES INITIAL EVALUATION MR#: [id number] Acct: [id number] Name: TABITHA ESTEVES Rep #: [id number] : 1950 73 From: Abbe Moyer DPT Referring Dr.: Dr. Fracisco García MD Status: RE G RCR Insurance: MEDICARE PART A B [facility] Patient's Visit Information Visit Information Visit Information: TABITHA ESTEVES is a 73 year old M [...] with diagnosis of CVA. Pt. was in [place] had a CVA with R sided weakness. [...] to be FAXED BACK to us at [phone] for Medicare purposes. For Medicare only, by signing this I certify the plan of care. Please let me know if there are questions or concerns regarding this plan of care. Physician Signature: Date: 06/26/24 1121 CC: Dr. Rosie Rodriguez MD; Dr. Fracisco García MD CLS Signed Normal [facility] OT General Evaluationon 04-0 OT General Evaluation [facility] Occupational Therapy [address] [place] [address] / REHABILITATION SERVICES INITIAL EVALUATION MR#: [id number] Acct: [id number] Name: TABITHA ESTEVES Rep #: [id number] : 1950 73 From: Vira MEJIA/Emi, CHT Referring Dr.: Dr. Fracisco García MD Status: RE G RCR Insurance: MEDICARE PART A B Eval Date: [employer] [facility] Patient's Visit Information Visit Information Visit Information: TABITHA ESTEVES is a 73 year old M, referred to Occupational Therapy by Dr. Fracisco García MD, with a diagnosis of CVA. Date of Evaluation: 06/25/24 Occupational Therapist: Vira Presley, OTR/Emi, CHT Subjective Subjective: This 73 year old male was seen for OT rohini with dx of CVA. pt arrives with following PT evaluation. pts states while vacationing in [place] pt suffered a CVA about 10 weeks ago. Pt was tsf to [place] to [facility] to undergo rehab. Pt just released on Monday06/21/24. pts states prior to leaving for [place] pt was working with a personal banker to improve his physical health. 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 pt was IND with all ADLs and [...] left 21# triceps R 12# left 24# Farm Crops Teacher: right 45# left 75# Lateral Pinch: right [...] pt will demo a increase in right manual arts teacher strength to 65# or greater to increase [...] to be FAXED BACK to us at [phone] for Medicare purposes. Please let me know if there are questions or concerns regarding this plan of care. Physician Signature: Date: 06/25/24 1108 CC: Dr. Rosie Rodriguez MD; Dr. Fracisco García MD MK Signed For Medicare only, by signing this I certify the plan of care. Physicians Signature Date [facility] ANES POSTPROC EVALon 023 ANES POSTPROC EVAL HNO ID: [id number] Author: Esa Hui DO Service: Anesthesiology Author Type: Physician Type: Anesthesia Postprocedure Evaluation Filed: 05/24/2022 12:14 PM Note Text: POST ANESTHESIA EVALUATION NOTE : 1950 Procedure Summary Date: 05/24/22 Room / Location: OR / MR OR Anesthesia Start: 916 Anesthesia Stop: 1125 [...] Documentation SIGNATURE: Esa Hui DO PATIENT NAME: Tabitha Esteves DATE: May 24, 2022 TIME: 12:14 PM CSN: [id number] [facility] ANES PRE-OPon 05-24-2022 ANES PRE-OP HNO ID: [id number] Author: Esa Hui DO Service: Anesthesiology Author Type: Physician Type: Anesthesia Preprocedure Evaluation Filed: 05/24/2022 7:41 AM Note Text: ANESTHESIOLOGY DAY OF SURGERY NOTE : 1950 Procedure Information Date/Time: 05/24/22929 Procedure: ARTHROPLASTY REPLACE JOINT TOTAL SHOULDER (Left: Shoulder) Location: MR OR 01 / MR OR Surgeons: Renato Mullen Jr., MD Estimated [...] and consent discussed: yes. Patient / Responsible Green Party agrees to proceed: yes Patient / Surrogate [...] updated information obtained (more content not included)... [facility] BRIEF OP NOTon 05-24-2022 BRIEF OP NOT HNO ID: [id number] Author: Renato Mullen Jr., MD Service: Orthopaedic Surgery Author Type: Physician Type: Brief Op Note Filed: 05/24/2022 1:22 PM Note Text: TOTAL KNEE ARTHROPLASTY BRIEF OPERATIVE / PROCEDURE NOTE LOG ID: [id number] Surgery/Procedure Date: 05/24/2022 Incision/Procedure Start Time: 9:46 AM Incision Close/Procedure End Time: 11:14 AM Surgeon(s)/Proceduralis t(s) and Surgical Services Asst(s): Surgeon(s) and Role: * Renato Mullen Jr., MD - Primary Shingle Carrier: Anand Garza SA Procedure(s): Procedure(s) (LRB): ARTHROPLASTY [...] Implant Name Type Inv. Item Serial No. Aerial Erector Lot No. LRB No. Used [employer] TM SHOULDER GLENOID PROSTHESIS [id number] Implant [employer] [id number] Left 1 Implanted PIN STEINMANN COMPREHENSIVE 3.2MM STAINLESS STEEL 9IN FIXATION THREAD - [id number] Pin PIN STEINMANN COMPREHENSIVE 3.2MM STAINLESS STEEL 9IN FIXATION THREAD [employer] [id number] Left 1 Non-Implant HEAD COMPREHENSIVE VERSA-DIAL 57MM 50MM 21MM HUMERAL SHOULDER - [id number] Joint - Shoulder HEAD COMPREHENSIVE VERSA-DIAL 57MM 50MM 21MM HUMERAL SHOULDER [employer] [id number] Left 1 Implanted ADAPTER COMPREHENSIVE STANDARD TITANIUM HEAD TAPER REVERSE SHOULDER SYSTEM - [id number] Joint - Shoulder ADAPTER COMPREHENSIVE STANDARD TITANIUM HEAD TAPER REVERSE SHOULDER SYSTEM [employer] [id number] Left 1 Implanted STEM COMPREHENSIVE 12MM MINI POROUS 83MM HUMERAL SHOULDER - [id number] Joint - Shoulder STEM COMPREHENSIVE 12MM MINI POROUS 83MM HUMERAL SHOULDER [employer] [id number] Left 1 Implanted ALLIANCE IMP SHIELD 4 PEG MOD GLENOID [id number] Implant [employer] [id number] Left 1 Implanted CEMENT BIOMET BONE 40GM - [id number] Cement / Putty CEMENT BIOMET BONE 40GM [employer] [id number] Left 1 Implanted Bearing Surface: Fixed Fixation: Hybrid SSI Risk Factors: NA Constraint: none Other: None Pre-Op/Pre-Procedure Diagnosis: Arthritis of left shoulder region [M19.012] Post-Op/Post-Procedure Diagnosis: Arthritis of left shoulder region [M19.012] Weight Bearing Status: Non-Weight Bearing SIGNATURE: Renato Mullen Jr, MD PATIENT NAME: Tabitha Esteves DATE: May 24, 2022 TIME: 1:20 PM [facility] 05-24-2022 [facility] HNO ID: [id number] Author: Kevin Geiger APRN.SENIOR INSTRUCTIONAL DESIGNER Service: Orthopaedic Surgery Author Type: Nurse Practitioner Type: Discharge Summary Filed: 05/25/2022 2:07 PM Note Text: Attestation signed by Renato Mullen Jr., MD at 05/31/2022 10:00 AM Agree DISCHARGE SUMMARY PATIENT NAME: Tabitha Esteves ADMISSION DATE: 05/24/2022 DISCHARGE DATE: 05/24/2022 [...] total shoulder arthroplasty 05/24/[address] Mullen [facility] COURSE: This is a 71-year-old gentleman who came into [facility] as had been scheduled and underwent [...] Screen for c (more content not included)... [facility] CONFIRM BLOOD TYPEon [address] [facility] Comment on above: Order Comment: Speci men Type: BLOOD SPECIMEN Ordering Facility: [facility] Address: [address] [place] [address] Performed By: #### 5 8410-2, 49614-8 #### [facility] CLIA [id number] [address] [place] [address] Rh Nom (Bld) Positive [facility] Comment on above: Order Comment: Speci men Type: BLOOD SPECIMEN Ordering Facility: [facility] Address: [address] [place] [address] Performed By: #### 5 8410-2, 58185-8 #### [facility] CLIA [id number] [address] [place] [address] HISTORY PHYSICALon HISTORY PHYSICAL HNO ID: [id number] Author: Renato Mullen Jr., MD Service: Orthopaedic Surgery Author Type: Physician Type: HANDP Filed: 05/24/2022 7:24 AM Note Text: No change to HANDP [facility] NURSING PROGon 05-24-2022 NURSING PROG HNO ID: [id number] Author: Constanza Daly RN Service: Nursing Author Type: Registered Nurse Type: Nursing Progress Note Filed: 05/24/2022 8:54 AM Note Text: Summary: block Dr. Hui placed left interscalene block using ultrasound guidance. Pt. tolerated well. Normal [facility] OPERATIVE NOon 05-24-2022 OPERATIVE NO HNO ID: [id number] Author: Renato Mullen Jr., MD Service: Orthopaedic Surgery Author Type: Physician Type: Operative Report Filed: 05/31/2022 10:02 AM Note Text: [facility] - Operative Notes TABITHA ESTEVES : 1950 AGE: 71 SEX: M CSN: [id number] [facility]: LOCATION: [place] [address] ATTENDING PHYSICIAN: RENATO MULLEN JR DATE OF [...] None. BLOOD LOSS: 15 mL. OPERATIVE INDICATIONS: Tabitha Esteves is a 71-year-old male who I [...] was obtained prior to the surgery. OPERATION: Tabitha Esteves was taken to the operating room [...] region. A (more content not included)... Normal [facility] CBC panel Auto (Bld)on 05-02 Erythrocyte distribution width (RBC) [Ratio] 12.2 % Normal 11.5-15.0 [facility] Comment on above: Order Comment: Lalitha rodriguez Type: BLOOD SPECIMEN Ordering Facility: [facility] Address: [address] [address] Performed By: #### 5 8410-2, 64625-4 #### [facility] CLIA [id number] [address] [place] [address] [place] Hematocrit (Bld) [Volume fraction] 39.5 % Normal 39.0-51.0 [facility] Comment on above: Order Comment: Lalitha rodriguez Type: BLOOD SPECIMEN Ordering Facility: [facility] Address: [address] [id number] Performed By: #### 5 8410-2, 75041-1 #### [facility] CLIA [id number] [address] [place] [address] [place] Hemoglobin (Bld) [Mass/Vol] 14.0 g/dL Normal 13.0-17.0 [facility] Comment on above: Order Comment: Lalitha rodriguez Type: BLOOD SPECIMEN Ordering Facility: [facility] Address: [address] [id number] Performed By: #### 5 8410-2, 02837-9 #### [facility] CLIA [id number] [address] [place] [address] [place] MCH (RBC) [Entitic mass] 31.5 pg Normal 26.0-34.0 [facility] Comment on above: Order Comment: Speci men Type: BLOOD SPECIMEN Ordering Facility: [facility] Address: [address] [place] [address] Performed By: #### 5 8410-2, 80601-7 #### [facility] CLIA [id number] [address] [place] [address] MCHC (RBC) [Mass/Vol] 35.4 g/dL Normal 30.5-36.0 [facility] Comment on above: Order Comment: Speci men Type: BLOOD SPECIMEN Ordering Facility: [facility] Address: [address] [place] [address] Performed By: #### 5 8410-2, 65065-4 #### [facility] CLIA [id number] [address] [place] [address] [place] MCV (RBC) [Entitic vol] 88.8 fL Normal 80.0-100.0 [facility] Comment on above: Order Comment: Speci men Type: BLOOD SPECIMEN Ordering Facility: [facility] Address: [address] [place] [address] Performed By: #### 5 8410-2, 40560-7 #### [facility] CLIA [id number] [address] [place] [address] [place] Nucleated RBC (Bld) [#/Vol] 10*3/uL Normal <0.01 [facility] Comment on above: Order Comment: Speci men Type: BLOOD SPECIMEN Ordering Facility: [facility] Address: [address] [place] [address] Performed By: #### 5 8410-2, 54259-9 #### [facility] CLIA [id number] [address] [place] [address] [place] Platelet mean volume (Bld) [Entitic vol] 9.2 fL Normal 9.0-12.7 [facility] Comment on above: Order Comment: Speci men Type: BLOOD SPECIMEN Ordering Facility: [facility] Address: [address] Performed By: #### 5 8410-2, 44702-7 #### [facility] CLIA [id number] [address] [place] [address] [place] Platelets (Bld) [#/Vol] 195 10*3/uL Normal 150-400 [facility] Comment on above: Order Comment: Speci men Type: BLOOD SPECIMEN Ordering Facility: [facility] Address: [address] Performed By: #### 5 8410-2, 96722-9 #### [facility] CLIA [id number] [address] [place] [address] [place] RBC (Bld) [#/Vol] 4.45 10*6/uL Normal 4.20-6.00 [facility] Comment on above: Order Comment: Speci men Type: BLOOD SPECIMEN Ordering Facility: [facility] Address: [address] Performed By: #### 5 8410-2, 07483-7 #### [facility] CLIA [id number] [address] [place] [address] [place] WBC (Bld) [#/Vol] 4.78 10*3/uL Normal 3.70-11.00 [facility] Comment on above: Order Comment: Speci men Type: BLOOD SPECIMEN Ordering Facility: [facility] Address: [address] Performed By: #### 5 8410-2, 49271-8 #### [facility] CLIA [id number] [address] [place] [address] [place] Erythrocyte distribution width (RBC) [Ratio] 12.2 % 11.5 - 15.0 % [facility] Hematocrit (Bld) [Volume fraction] 39.5 % 39.0 - 51.0 % [facility] Hemoglobin (Bld) [Mass/Vol] 14.0 g/dL 13.0 - 17.0 g/dL [facility] MCH (RBC) [Entitic mass] 31.5 pg 26.0 - 34.0 pg [facility] MCHC (RBC) [Mass/Vol] 35.4 g/dL 30.5 - 36.0 g/dL [facility] MCV (RBC) [Entitic vol] 88.8 fL 80.0 - 100.0 fL [facility] Nucleated RBC (Bld) [#/Vol] <0.01 k/uL [facility] Platelet mean volume (Bld) [Entitic vol] 9.2 fL 9.0 - 12.7 fL [facility] Platelets (Bld) [#/Vol] 195 10*3/uL 150 - 400 k/uL [facility] RBC (Bld) [#/Vol] 4.45 10*6/uL 4.20 - 6.0 0 m/uL [facility] WBC (Bld) [#/Vol] 4.78 10*3/uL 3.70 - 11. 00 k/uL [facility] Comprehensive metabolic 2000 panelon 05-02-2022 Albumin [Mass/Vol] 3.8 g/dL Normal 3.2-5.0 [facility] Comment on above: Order Comment: Speci men Type: BLOOD SPECIMEN Ordering Facility: [facility] Address: [address] [place] [address] Performed By: #### 2 4323-8 #### [facility] CLIA [id number] [address] [place] [address] [place] ALP [Catalytic activity/Vol] 85 U/L Normal 45-117 [facility] Comment on above: Order Comment: Speci men Type: BLOOD SPECIMEN Ordering Facility: [facility] Address: [address] [place] [address] Performed By: #### 2 4323-8 #### [facility] CLIA [id number] [address] [place] [address] [place] ALT [Catalytic activity/Vol] 24 U/L Normal 13-61 [facility] Comment on above: Order Comment: Speci men Type: BLOOD SPECIMEN Ordering Facility: [facility] Address: [address] [address] Result Comment: Resu lts may be falsely depressed after the administration of Sulfasalazine and/or Sulfapyridine. Performed By: #### 2 4323-8 #### [facility] CLIA [id number] [address] [place] [address] [place] Anion gap [Moles/Vol] 5 mmol/L Normal 5-16 [facility] Comment on above: Order Comment: Speci men Type: BLOOD SPECIMEN Ordering Facility: [facility] Address: [address] [address] Performed By: #### 2 4323-8 #### [facility] CLIA [id number] [address] [place] [address] [place] AST [Catalytic activity/Vol] 22 U/L Normal 8-34 [facility] Comment on above: Order Comment: Speci men Type: BLOOD SPECIMEN Ordering Facility: [facility] Address: [address] [place] [address] Result Comment: Resu lts may be falsely depressed after the administration of Sulfasalazine and/or Sulfapyridine. Performed By: #### 2 4323-8 #### [facility] CLIA [id number] [address] [place] [address] [place] Bilirubin [Mass/Vol] 0.4 mg/dL Normal 0.2-1.0 [facility] Comment on above: Order Comment: Speci men Type: BLOOD SPECIMEN Ordering Facility: [facility] Address: [address] [address] Performed By: #### 2 4323-8 #### [facility] CLIA [id number] [address] [place] [address] [place] Calcium [Mass/Vol] 9.9 mg/dL Normal 8.5-10.5 [facility] Comment on above: Order Comment: Speci men Type: BLOOD SPECIMEN Ordering Facility: [facility] Address: [address] [place] [address] Performed By: #### 2 4323-8 #### [facility] CLIA [id number] [address] [place] [address] [place] Chloride [Moles/Vol] 106 mmol/L Normal 98-107 [facility] Comment on above: Order Comment: Speci men Type: BLOOD SPECIMEN Ordering Facility: [facility] Address: [address] [place] [address] Performed By: #### 2 4323-8 #### [facility] CLIA [id number] [address] [place] [address] [place] CO2 [Moles/Vol] 29 mmol/L Normal 21-32 [facility] Comment on above: Order Comment: Speci men Type: BLOOD SPECIMEN Ordering Facility: [facility] Address: [address] [place] [address] Performed By: #### 2 4323-8 #### [facility] CLIA [id number] [address] [place] [address] [place] Creatinine [Mass/Vol] 1.17 mg/dL Normal 0.50-1.40 [facility] Comment on above: Order Comment: Speci men Type: BLOOD SPECIMEN Ordering Facility: [facility] Address: [address] [place] [address] Result Comment: Ce ents receiving either N-Acetylcysteine (NAC) or Metamizole prior to venipuncture, may have falsely depressed results. Performed By: #### 2 4323-8 #### [facility] CLIA [id number] [address] [place] [address] [place] ESTIMATED GLOMERULAR FILTRATION RATE 66 mL/min/1.73m??? Normal >=60 [facility] Comment on above: Order Comment: Speci men Type: BLOOD SPECIMEN Ordering Facility: [facility] Address: [address] [place] [address] Result Comment: Dariana mated Glomerular Filtration Rate [...] GFR. Performed By: #### 2 4323-8 #### [facility] CLIA [id number] [address] [place], [place] [address] [place] Glucose [Mass/Vol] 95 mg/dL Normal 70-100 [facility] Comment on above: Order Comment: Lalitha rodriguez Type: BLOOD SPECIMEN Ordering Facility: [facility] Address: [address] [place] [address] Result Comment: The [place] Diabetes Association (ADA) provides guidance for cutoff [...] Standards of Medical Care in Diabetes 2016, [place] Diabetes Association. Diabetes Care. 2016.39(Suppl 1). Results may be falsely elevated after the administration of Sulfapyridine. Results may be falsely depressed after the administration of Sulfasalazine. Performed By: #### 2 4323-8 #### [facility] CLIA [id number] [address] [place] [address] [place] Potassium [Moles/Vol] 4.2 mmol/L Normal 3.5-5.1 [facility] Comment on above: Order Comment: Lalitha rodriguez Type: BLOOD SPECIMEN Ordering Facility: [facility] Address: [address] [place], [place] [id number] Performed By: #### 2 4323-8 #### [facility] CLIA [id number] [address] [place] [address] [place] Protein [Mass/Vol] 6.7 g/dL Normal 6.0-8.5 [facility] Comment on above: Order Comment: Speci men Type: BLOOD SPECIMEN Ordering Facility: [facility] Address: [address] [address] Performed By: #### 2 4323-8 #### [facility] CLIA [id number] [address] [place] [address] [place] Sodium [Moles/Vol] 140 mmol/L Normal 136-145 [facility] Comment on above: Order Comment: Speci men Type: BLOOD SPECIMEN Ordering Facility: [facility] Address: [address] [address] Performed By: #### 2 4323-8 #### [facility] CLIA [id number] [address] [place] [address] [place] Urea nitrogen [Mass/Vol] 31 mg/dL High 7- [facility] Comment on above: Order Comment: Speci men Type: BLOOD SPECIMEN Ordering Facility: [facility] Address: [address] [address] Performed By: #### 2 4323-8 #### [facility] CLIA [id number] [address] [place] [address] [place] Albumin [Mass/Vol] 3.8 g/dL 3.2 - 5.0 g/dL [facility] ALP [Catalytic activity/Vol] 85 U/L 45 - 117 U/L [facility] ALT [Catalytic activity/Vol] 24 U/L 13 - 61 U/L [facility] Anion gap [Moles/Vol] 5 mmol/L 5 - 16 mmol/L [facility] AST [Catalytic activity/Vol] 22 U/L 8 - 34 U/L [facility] Bilirubin [Mass/Vol] 0.4 mg/dL 0.2 - 1 .0 mg/dL [facility] Calcium [Mass/Vol] 9.9 mg/dL 8.5 - 10. 5 mg/dL [facility] Chloride [Moles/Vol] 106 mmol/L 98 - 10 7 mmol/L [facility] CO2 [Moles/Vol] 29 mmol/L 21 - 32 mmol/L [facility] Creatinine [Mass/Vol] 1.17 mg/dL 0.50 - 1.40 mg/dL [facility] Estimated Glomerular Filtration Rate 66 mL/min/1.73m >=60 mL/min/1.73m [facility] Glucose [Mass/Vol] 95 mg/dL 70 - 100 mg/dL [facility] Potassium [Moles/Vol] 4.2 mmol/L 3.5 - 5.1 mmol/L [facility] Protein [Mass/Vol] 6.7 g/dL 6.0 - 8.5 g/dL [facility] Sodium [Moles/Vol] 140 mmol/L 136 - 145 mmol/L [facility] Urea nitrogen [Mass/Vol] 31 mg/dL High 7 - 26 mg/dL [facility] ECG COMPLETEon 05-02-2022 Atrial Rate 63 BPM [facility] Calculated P Jolley -10 degrees [facility] Calculated R Jolley 10 degrees [facility] Calculated T Jolley [address] [facility] P-R Interval 216 ms [facility] QRS Duration 76 ms [facility] QT Interval 392 ms [facility] QTC Calculation (Bazett) 401 ms [facility] Ventricular Rate 63 BPM [facility] STZ50am 05-02-2022 ECG01 Ventricular Rate : 6 3 BPM Atrial Rate : 63 BPM P-R Interval : 216 ms QRS Duration : 76 ms Q-T Interval : 392 ms QTC Calculation(Bazett) : 401 ms Calculated P Jolley : -10 degrees Calculated R Jolley : 10 degrees Calculated T Jolley : 29 degrees Sinus rhythm 1st degree AV block Otherwise normal ECG No previous ECGs available Confirmed by SARAH DOYLE MD ([id number]) on 05/02/2022 8:24:58 PM NAME : TABITHA ESTEVES PID : [id number] : 1950 Gender : Male Race : ORD : [id number] Procedure Date : May 02 2022 12:21:16 Edit Date : May 02 2022 20:25:00 Diagnosis: Sinus rhythm 1st degree AV block Otherwise normal ECG No previous ECGs available Confirmed by SARAH DOYLE MD ([id number]) on 05/02/2022 8:24:58 PM Test Reason : Location : 2 : [facility]AT Overread By : SARAH DOYLE MD Edited By : SARAH DOYLE MD Referred By : RUBEN, Acquired by : [facility], [facility] HbA1c (Bld)on 05-02-2022 Average glucose Estimated from glycated hemoglobin (Bld) [Mass/Vol] 105 mg/dL [facility] HbA1c (Bld) [Mass fraction] 5.3 % 4.3 - 6.0 % [facility] Average glucose Estimated from glycated hemoglobin (Bld) [Mass/Vol] 105 mg/dL Normal [facility] Comment on above: Order Comment: Lalitha rodriguez Type: BLOOD SPECIMEN Ordering Facility: [facility] Address: [address] [place] [address] Result Comment: eAG: (Estimated average glucose) is a calculated value from HgbA1c and is technical account representative of the average blood glucose level in the last 2-3 month period. Performed By: #### 5 8410-2, 24928-2 #### [facility] CLIA [id number] [address] [place] [address] OF [facility] HbA1c (Bld) [Mass fraction] 5.3 % Normal 4.3-6.0 [facility] Comment on above: Order Comment: Lalitha rodriguez Type: BLOOD SPECIMEN Ordering Facility: [facility] Address: [address] [place] [address] Result Comment: [place] Diabetes Association guidelines indicate that patients with HgbA1c in the range 5.7-6.4% are at increased risk for development of diabetes, and intervention by lifestyle modification may be beneficial. HgbA1c greater or equal to 6.5% is considered diagnostic of diabetes. Performed By: #### 5 8410-2, 60986-7 #### [facility] CLIA [id number] [address] [place] [address] OF [facility] Laboratory - Microbiology an d Antimicrobial susceptibilityon 05-02-2022 S. aureus and MRSA panel JONH+probe (Nose) Negative Negative [facility] STAPH AUREUS PCRon S. aureus and MRSA panel JONH+probe (Nose) Normal Negative [facility] Comment on above: Order Comment: Lalitha rodriguez Type: SWAB OF INTERNAL NOSE Ordering Facility: [facility] Address: [address] [place] [address] Result Comment: Nega tive for Staphylococcus aureus by PCR. Negative for MRSA by PCR Performed By: #### S APCR #### [facility] CLIA [id number] [address] [place] [address] [place] TYPE AND SCREEN,30 DAYon ABO B [facility] HIstorical Ab Scr Status Negative [facility] Rh Nom (Bld) Positive [facility] ABO B Normal [facility] Comment on above: Order Comment: Speci men Type: BLOOD SPECIMEN Ordering Facility: [facility] Address: [address] [place] [address] Performed By: #### T [id number] #### [facility] CLIA [id number] [address] [place] [address] OF [place] HISTORICAL AB SCR STATUS Negative Normal [facility] Comment on above: Order Comment: Speci men Type: BLOOD SPECIMEN Ordering Facility: [facility] Address: [address] [place] [address] Performed By: #### T SCR30 #### [facility] CLIA [id number] [address] [place] [address] Rh Nom (Bld) Positive Normal [facility] Comment on above: Order Comment: Speci men Type: BLOOD SPECIMEN Ordering Facility: [facility] Address: [address] [place] [address] Performed By: #### T [id number] #### [facility] CLIA [id number] [address] [place] [address] OF DENIS [id number] 07-16-2020 Date of Onset [id number] Invalid Interpretation Code [facility] ([place]) Comment on above: Performed By: #### C OVD19 #### [address] [address] Employed in Healthcare No [facility] ([place]) Comment on above: Performed By: #### C OVD19 #### [facility] [address] [place] [address] First Test No [facility] ([place] Comment on above: Performed By: #### C OVD19 #### [address] [address] Hospitalized No [facility] ([place] Comment on above: Performed By: #### C OVD19 #### [facility] [address] [place], [place] [id number] ICU No [facility] ([place] Comment on above: Performed By: #### C OVD19 #### [facility] [address] [place] [address] Not [facility] ([place] Comment on above: Performed By: #### C OVD19 #### [facility] [address] [place] [address] Resides in Congregate Care Setting No [facility] ([place] Comment on above: Performed By: #### C OVD19 #### [place] [address] [place] [address] SARS-CoV-2 (COVID-19) RNA JONH+probe Ql (Unsp spec) Negative Normal Negative [facility] [place] Comment on above: Performed By: #### C OVD19 #### [place] [address] SARS-CoV-2 (COVID-19) RNA JONH+probe Ql (Unsp spec) Normal [facility] ([place] Comment on above: Result Comment: Nega tive [...] Int Performed By: #### C OVD19 #### [facility] [address] [place] [address] Symptomatic as Defined by CDC No Normal [facility] ([place] Comment on above: Performed By: #### C OVD19 #### [facility] [address] [place] [address] Vital Signs Date Time Vital Sign Value Performing Clinician Mackenzie mcarthur 05-02-2022 11:56-0500 Diastolic blood pressure 82 mm[Hg] Pacc 2 Work Phone: [facility] 05-02-2022 11:56-0500 Systolic blood pressure 153 mm[Hg] Pacc 2 Work Phone: [facility] 05-02-2022 11:55-0500 Body height 170.2 cm Pacc 2 Work Phone: [facility] 05-02-2022 11:55-0500 Body weight 105.87 kg Pacc 2 Work Phone: [facility] 05-02-2022 11:55-0500 Heart rate 63 /min Pacc 2 Work Phone: [facility] 05-02-2022 11:55-0500 Respiratory rate 18 /min Pacc 2 Work Phone: [facility] 05-02-2022 11:55-0500 SaO2% (BldA) [Mass fraction] 96 % Pacc 2 Work Phone: [facility] Encounters Encounter Date Encounter Type Care Provider Facility Start: 01-30-2025 End: 01-30-2025 ambulatory [facility] Facility:[facility] Start: 01-24-2025 ambulatory Fracisoc García Facility: [facility] Start: 01-01-2025 [facility] Start: 01-01-2025 End: 01-01-2025 ambulatory [facility] Facility:[facility] Start: 10-29-2024 End: 10-29-2024 ambulatory [facility] Facility:[facility] Start: 09-24-2024 End: 09-24-2024 ambulatory [facility] Facility:[facility] Start: 09-03-2024 ambulatory Pierce Cummings Facilit y:[facility] Start: 08-27-2024 End: 08-27-2024 ambulatory Betty Cuevas Facility:[facility] Start: 08-22-2024 End: 08-22-2024 ambulatory Pierce Cummings Facility:[facility] Start: 06-28-2024 End: 06-28-2024 ambulatory Rosie Rodriguez Facility:[facility] Start: 06-20-2024 End: 06-20-2024 ambulatory [facility] BELL CAPTAIN Facility:[facility] Start: 06-18-2024 ambulatory Efewongbe Oleghe OLS Fa cility:[facility] Start: 06-11-2024 End: 06-11-2024 ambulatory [facility]LL CAPTAIN Facility:[facility] Start: 06-04-2024 ambulatory Efewongbe Oleghe OLS Fa cility:[facility] Start: 05-28-2024 ambulatory Efewongbe Oleghe OLS Fa cility:[facility] Start: 05-21-2024 End: 05-21-2024 ambulatory Efewongbe Oleghe Facility:[facility] Start: 05-24-2022 End: 05-24-2022 Evaluation and management of inpatient RENATO MULLEN Facility:[id number] Start: 05-06-2022 Encounter for other preprocedural examination [place] [facility] Start: 05-03-2022 End: 05-06-2022 ambulatory RENATO MULLEN JR Facility:[id number] Start: 05-02-2022 End: 05-02-2022 [place] to [place] [address] Work Phone: [facility] Start: 05-02-2022 End: 05-02-2022 ambulatory [facility] 2 Work Phone: Pre Anesthesia Comment on above: Preop testing (Prima ry Dx); Postprocedural hypoinsulinemia Start: 05-02-2022 End: 05-02-2022 Patient encounter status Pacc 2 Work Phone: Pre Anesthesia Procedures Date Procedure Procedure Detail Performing Clinician Start: 05-02-2022 End: 05-02-2022 Antibody screen Pacc 2 Work Phone: Comment on above: Order Comment: Speci men Type: BLOOD SPECIMEN Ordering Facility: [facility] Address: [place] [address] Performed By: #### T SCR30 #### [facility] CLIA [id number] [address] [place] [address] [facility] Start: 05-02-2022 Antibody screen rbc each serum technique Renato Mullen MD Work Phone: Start: 05-02-2022 Blood count complete automated Renato Mullen MD Work Phone: Start: 05-02-2022 Iadna s aureus ampli fied probe tq Renato Mullen MD Work Phone: Start: 11-10-2009 Colonoscopy Pac 2 Work Phone: Plan of Treatment Date Care Activity Detail Author Start: 05-02-2025 DIABETES SCREEN DIABETES SCREEN [facility] Start: 03-27-2022 ADVANCE DIRECTIVE DISCUSSION ADVANCE DIRECTIVE DISCUSSION [facility] Start: 03-27-2022 DEPRESSION ASSESSMENT DEPRESSION ASS ESSMENT [facility] Start: 11-25-2021 Influenza vaccination INFLUENZA (#1) [facility] Start: 2013 PNEUMOCOCCAL: 65+ (1 - PCV) PNEUMOCOCCAL: 65+ (1 - PCV) [facility] Start: 11-10-2010 Colonoscopy COLONOSCOPY [facility] Start: 11-10-2010 COLORECTAL CANCER SCREENING COLORECTAL CANCER SCREENING [facility] Start: 1998 SHINGRIX VACCINE (1 of 2) SHINGRIX V ACCINE (1 of 2) [facility] Start: 1993 COLOGUARD (FIT-DNA) COLOGUARD (FIT-D NA) [facility] Start: [address] COLONOGRAPHY [facility] Start: 1993 FECAL OCCULT BLOOD FECAL OCCULT BLOO D [facility] Start: 1993 SIGMOIDOSCOPY SIGMOIDOSCOPY [facility] Start: 07-31-1983 LIPID SCREEN LIPID SCREEN [facility] Start: 07-31-1967 Urine microalbumin profile DTAP,TDAP ,TD (1 - Tdap) [facility] Start: 1966 HEPATITIS C SCREENING HEPATITIS C TX TIA [facility] Start: 01-30-1949 COVID-19 VACCINE (#1) COVID-19 VACCI NE (#1) [facility] Payers Date Payer Category Payer Self-pay 2022 Unknown HOSPITAL/MEDICAL GENERIC MEDICAL GENERIC [id number] 2022-Present [phone] [address] [place] [address] Indemnity [id number] 2013 Medicare MEDICARE MEDICAR E A AND B [id number] 2013-Present [phone] [address] [address] [place] [address] Medicare [id number] 2013 Medicare [id number] 2013 Unknown [id number] Unknown [id number] [id number] Unknown [id number] 2.16.840.1.041711.3.579.2.462 Unknown [id number] 2.16.840.1.406488.3.579.2.462 Unknown [id number] 2.16.840.1.269238.3.579.2.462 Unknown [id number] 2.16.840.1.625119.3.579.2.462 Unknown [id number] 2.16.840.1.800817.3.579.2.462 Unknown [id number] 2.16.840.1.234576.3.579.2.462 Unknown [id number] 2.16.840.1.285761.3.579.2.462 Unknown [id number] 2.16.840.1.349012.3.579.2.462 Unknown [id number] 2.16.840.1.418489.3.579.2.462 Unknown [id number] 2.16.840.1.187422.3.579.2.462 Unknown [id number] 2.16.840.1.045222.3.579.2.462 Unknown [id number] 2.16.840.1.086986.3.579.2.462 Unknown [id number] 2.16.840.1.323590.3.579.2.462 Unknown [id number] 2.16.840.1.703104.3.579.2.462 Unknown [id number] 2.16.840.1.974654.3.579.2.462 Unknown [id number] 2.16.840.1.442833.3.579.2.462 Unknown [id number] 2.16.840.1.968289.3.579.2.462 Unknown [id number] 2.16.840.1.686530.3.579.2.462 Unknown [id number] 2.16.840.1.983347.3.579.2.462 Social History Date Type Detail Facility Start: 04-29-2022 Tobacco smoking status NHIS Never smoked tobacco [facility] Start: 04-29-2022 Tobacco use and exposure Smokeless tobacco non-user [facility] Start: 05-02-2022 Alcohol intake Current non-dr renae of alcohol (finding) [facility] Start: 1950 Sex Assigned At Not on file [facility] NEGATED: Highlighted rowStart: NINF History of tobacco use Passive smoker [facility] Clinical Notes 05-02-2022 to 05-24-2022 Cheryle Fraga MD - 05/02/2022 12:22 PM Holger Laura APRN.CNP - 05/02/2022 11:30 AM EST Note Date & Type Note Facility 05-24-2022 Note HNO ID: [id number] Author: Rosalba Buckley RN Service: Care Management [...] stay SIGNATURE: Rosalba Buckley RN PATIENT NAME: Tabitha Esteves DATE: May 24, 2022 TIME: 5:13 [...] the process utilized to ensure compliance with [facility] policy regarding Inpatient Admission and Observation Services. [...] physician's order as documented evidence of concurrence. [facility] 05-24-2022 Note HNO ID: [id number] Author: Riya Monzon APRN.CAREER TECHNOLOGY TEACHER Service: ? Author Type: Nurse Hamper Maker Type: Anesthesia Procedure Notes Filed: 05/24/2022 9:28 AM Note Text: ANESTHESIOLOGY PROCEDURE NOTE Airway General Information Procedure Start Time/Medication Administration: 05/24/2022 9:27 AM Patient location during procedure: OR Timeout Performed Pre-procedure: timeout performed Consent Obtained: Yes Patient identity confirmed: arm band and patient Staffing Anesthesiologist: Esa Hui DO CAREER TECHNOLOGY TEACHER: Riya Nicolás, SHOE PATTERNMAKER.CAREER TECHNOLOGY TEACHER Performed by: CAREER TECHNOLOGY TEACHER Indications and Patient Condition Indications for airway [...] attempts at approach: 1 SIGNATURE: Riya Monzon APRN.CRNA PATIENT NAME: Tabitha Esteves DATE: May 24, 2022 TIME: 9:27 AM CSN: [id number] [facility] 05-24-2022 Note HNO ID: [id number] Author: Esa Hui DO Service: Anesthesiology Author [...] AM SIGNATURE: Esa Hui DO PATIENT NAME: Tabitha Esteves DATE: May 24, 2022 TIME: 7:28 AM CSN: [id number] [facility] 05-23-2022 Note HNO ID: [id number] Author: Aleena Rodriguez RN Service: ? Author [...] color), Ensure Pre-Surgery (given by EMILIA or your ), fruit juice without pulp (apple/cranberry), clear tea, [...] directed. Bring copy of Living Will/Power of [employer] Technician. Do not smoke or chew. If you [...] the Surgery Center. UPON ARRIVAL: Access to [facility] is located on [address] [employer] Res[employer] parking is available for your convenience from [...] instructions for the morning of your procedure. [facility] 05-11-2022 Note HNO ID: [id number] Author: Ambar Laura APRN.CNP Service: ? Author Type: Nurse Practitioner Type: Progress Notes Filed: 05/11/2022 2:42 PM Note Text: Summary: medical clearance Shahana provided medical clearance stating medically optimized [facility] 05-02-2022 Note HNO ID: [id number] Author: Cheryle Fraga MD Service: ? Author [...] instructions for the morning of your procedure. [facility] 05-02-2022 Note HNO ID: [id number] Author: Ambar Laura APRN.SENIOR INSTRUCTIONAL DESIGNER Service: ? Author Type: Nurse Practitioner Type: Progress Notes Filed: 05/03/2022 3:14 PM Note Text: LTSA 05/24 Radu 71yo obese male, nonsmoker. PMH: HTN, bipolar, OCD, ?GIB. On ASA- to d/w PCP when to hold. [facility] APPOINTMENT: (Flak[place] 05/02/22): I met Tabitha today in [facility] with his daughter. He [...] - 96% sat RA. PCP Shahana in [place]. 05/03 ROSANNA Laura: A1C 5.3, NEG SA/MRSA, [...] ALKALINE PHOSPHATASE 45 - 117 U/L 85 [facility] 05-02-2022 History of Presen t illness Narrative [...] the morning of your procedure. LTSA 05/24 Helann 71yo obese male, nonsmoker. PMH: HTN, bipolar, OCD, ?GIB. On ASA- to d/w PCP when to hold. [facility] APPOINTMENT: (Flakito 05/02/22): I met Tabitah today in [facility] with his daughter. He [...] - 96% sat RA. PCP Shahana in [place]. 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 Unspecified arthropathy, shoulder region documented in this encounter [facility] for referral (narrative)* Outpatient Procedure (Routine) - Closed Specialty Diagnoses / Procedures Referred By Devonte sims Referred To Contact [facility] Diagnoses Preop testing Procedures ECG COMPLETE ECG ROUTINE ECG W/LEAST 12 LDS W/I&R Renato Mullen Jr., MD [address] [place] [address] [facility] [address] [address] Referral ID Status Reason Start Date Expiration Date V isits Requested Visits Authorized [id number] Closed Auto-Generated Referral Financial Clearance Required - OON Payor Patient Cleared - INN Insurance Found 05/02/2022 04/28/2023 1 1 [facility] for visit Narrative* Outpatient Procedure (Routine) - Closed Specialty Diagnoses / Procedures Referred By Devonte sims Ref[facility] To [facility] Diagnoses Preop testing Procedures ECG COMPLETE ECG ROUTINE ECG W/LEAST 12 LDS W/I&R Renato Mullen Jr., MD [address] [place] [address] [facility] [place] [address] [place] [address] Referral ID Status Reason Start Date Expiration Date V isits Requested Visits Authorized [id number] Closed Auto-Generated Referral Financial Clearance Required - OON Payor Patient Cleared - INN Insurance Found 05/02/2022 04/28/2023 1 1 [facility] Summary Purpose Family History No Family History Records FoundNo Family History Records FoundNo Family History Records Found Advance Directives No Advanced Directives Records FoundNo Advanced Directives Records FoundNo Advanced Directives Records Found Additional Source Comments (unrecognized sect ion and content) No Status Records FoundNo Status Records FoundNo Status Records Found INFORMATION SOURCE (unrecogn ized section and content) DATE CREATED AUTHOR 07/21/2020 [facility] ([place]) DATE CREATED AUTHOR AUTHOR'S ORGANIZ ATION 06/02/2022 [facility] DATE CREATED AUTHOR AUTHOR'S ORGANIZ ATION 02/01/2025 [facility] Source Comments (unrecognize d section and content) In the event this informatio n is protected by the Federal Confidentiality of Alcohol and Drug Abuse Patient Records regulations: The Federal rules restrict any use of the information to criminally investigate or prosecute any alcohol or drug abuse patient.[facility] Care Teams (unrecognized sec tion and content) Director Of Field Service Relationship Specialty Start Date End Date Rosie Rodriguez [address] [place] [address] PCP - General Family Medicine 05/02/22 FOR [...] BE BASED ON THE PRIMARY CLINICAL RECORDS. [facility] [employer] [facility]. provides no warranty or guarantee of the accuracy or completeness of information in this document.
== END | disposition home or self-care (01) ==
LOC: CVS 12:57
PROVIDERS: PCP Family Medicine; Referring Provider Psychiatry & Neurology Neurology; Visit Provider Psychiatry & Neurology Neurology
DX: R09.89 Other specified symptoms and signs involving the circulatory and respiratory systems (principal)
CPT/HCPCS: 93880